=== PATIENT | female | born 1935 | race Caucasian/White ===

== ENCOUNTER 2016-05-08 11:32 | Observation (INO) | payer OTHER ==
[~2016-05-08] VITALS: Ht 149.9 cm; Wt 49.0 kg
[~2016-05-08 11:32] MED LIST: ASPCH81X PO; CHOL2000 PO; CYAN100020 PO; CYCL0.05 OPR; INSU1INJ SC; METO25TA3 PO; OMEP20CA59 PO; POLYDRO OPB; PRVC10 PO
[2016-05-08] MEDS ORDERED: SODIUM CHLORIDE 0.9% 500ML 500 ML IV STA (12:10)
[2016-05-08 12:19] LABS: HEMATOCRIT 41.3 % (37-47); MEAN CELL VOLUME 88.4 fL (80-100); MEAN CORPUSCULAR HEMOGLOBIN 28.5 pg (25-34); MEAN CORPUSCULAR HGB CONC 32.2 g/dl (32-36); MEAN PLATELET VOLUME 10.9 fL (7.4-10.4); PLATELET COUNT 160 K/uL (130-400); RED BLOOD COUNT 4.67 M/uL (4.2-5.4); WHITE BLOOD COUNT 12.74 K/uL (4.8-10.8)
[2016-05-08 12:28] LABS: ALT/SGPT 13 U/L (12-78); AST/SGOT 29 U/L (15-37); BLOOD UREA NITROGEN 30 mg/dl (7-18); BUN/CREATININE RATIO 18.5 (10-20); CALCIUM 9.1 mg/dl (8.5-10.1); CARBON DIOXIDE 25 mmol/L (21-32); CHLORIDE 100 mmol/L (98-107); GLUCOSE 204 mg/dl (70-99); POTASSIUM 4.1 mmol/L (3.5-5.1); SODIUM 135 mmol/L (136-145)
[2016-05-08 12:35] LABS: BASO % 0.1 %; BASO ABS # 0.01 K/uL (0-0.2); COMPLETE YES; IG% 0.3 %; LYMPH % 8.4 %; LYMPH ABS # 1.07 K/uL (1.2-3.4); MONO % 2.7 %; NEUT % 88.5 %
[2016-05-08 12:39] LABS: ALKALINE PHOSPHATASE 42 U/L (45-117); CKMB/CK RATIO 0.5 (0-3.0); PHOSPHORUS 2.8 mg/dl (2.5-4.9)
[2016-05-08] MEDS ORDERED: ASPIRIN 324 MG CHEW PO STA (13:05)
[2016-05-08] MEDS ORDERED: OSELTAMIVIR PHOSPHATE 75 MG CAP PO STA (13:05)
--- NOTE | 2016-05-08 13:06 | DIAGNOSTIC IMAGING REPORT ---
SINGLE VIEW CHEST CLINICAL HISTORY: Generalized weakness. FINDINGS: An AP, portable, upright chest radiograph is compared to study dated 05/04/2016. The examination is degraded by portable technique and patient rotation. The patient is status post midline sternotomy and aortic valve replacement. A 2-lead cardiac pacemaker is unchanged in position and partially obscures the left upper chest. The heart is top normal for projection. The pulmonary vasculature is noncongested. The mitral annulus is densely calcified. Emphysema and chronic interstitial thickening are similar to previous. No airspace consolidation or pleural effusion is seen. There is no pneumothorax. The skeletal structures are osteopenic. The bony thorax is grossly intact. IMPRESSION: 1. Cardiomegaly and cardiac pacemaker. There is no radiographic evidence of congestive failure. 2. Chronic parenchymal changes as above. No airspace consolidation or pleural effusion is seen Electronically signed by: Keven Fritz M.D. 05/08/2016 1:04 PM
[2016-05-08 13:12] LABS: INR 1.1 (0.9-1.1); PARTIAL THROMBOPLASTIN RATIO 1.2; PROTHROMBIN TIME (PATIENT) 11.9 SECONDS (9.0-12.0)
--- NOTE | 2016-05-08 13:28 | EMERGENCY ROOM VISIT NOTE ---
History Report prepared by Gricelda: Hugo Ortez Under the Supervision of: Dr. Jake Hare M.D. First contact with patient: 12:05 Chief Complaint: FLU LIKE SX Stated Complaint: WEAK, FLUE LIKE SYMPTONS ETC History of Present Illness The patient is a 81 year old female who presents to the Emergency Room with complaints of a persistent cough beginning this week. She has associated sore throat and weakness. She was seen at the clinic in [facility] for similar symptoms and was discharged. The patient notes that she has chest pain with coughing. She denies any neck pain, back pain, abdominal pain, nausea, vomiting , or diarrhea. She notes that many members of her family are sick with similar symptoms. Source of History: patient Onset: This week Quality: other (cough) Timing: other (persistent) Associated Symptoms: + chest pain (with coughing), + sorethroat, + weakness , No abdominal pain, No back pain, No diarrhea, No nausea, No neck pain, No vomiting Review of Systems See HPI for pertinent positives & negatives. A total of 10 systems reviewed and were otherwise negative. Past Medical & Surgical Medical Problems: (1) Diabetes (2) Hyperlipidemia (3) Pacemaker Family History No pertinent family history stated. Social History Smoking Status: Never Smoker Marital Status: Occupation Status: retired Current/Historical Medications Scheduled Aspirin (Aspirin Chewable), 81 MG PO QAM Cholecalciferol (Vitamin D3), 1 CAP PO QAM Cyanocobalamin (Vitamin B12), 1 TAB PO QAM Cyclosporine Oph 0.05% (Restasis Oph 0.05%), 1 DROP OPR BID Insulin Isophan/Regular (Humulin 70/30), 5-10 UNITS SC QAM Metoprolol Succinate (Toprol Xl), 25 MG PO QAM Omeprazole (Prilosec), 20 MG PO BID Polyvinyl Alcohol-Povidone (Op (Freshkote), 1 DROPS OPB QID Pravastatin Sod (Pravastatin Sodium), 1 TAB PO QAM Allergies Coded Allergies: Rosuvastatin (Verified Adverse Reaction, Unknown, UPSET STOMACH, 05/08/16) Simvastatin (Verified Adverse Reaction, Unknown, UPSET STOMACH, 05/08/16) Physical Exam Vital Signs Date Time Temp Pulse Resp B/P Pulse Ox O2 Delivery O2 Flow Rate FiO2 05/08/16 13:46 97 Room Air 05/08/16 13:00 75 20 142/53 92 Room Air 05/08/16 11:34 36.4 96 22 116/76 97 Room Air Physical Exam GENERAL: Patient is elderly appearing, and in minimal distress. Appears dehydrated. HEENT: No acute trauma, normocephalic atraumatic, mucous membranes moist, no nasal congestion, no scleral icterus. NECK: No stridor, no adenopathy, no meningismus, trachea is midline. LUNGS: No dyspnea. Clear to auscultation and equal bilaterally. No wheeze, no rhonchi. Junky cough noted. HEART: Regular rate and rhythm. No murmurs, rubs, gallops appreciated. ABDOMEN: Soft, nontender, bowel sounds positive, no masses appreciated, no peritonitis. BACK: No midline tenderness, no CVA tenderness EXTREMITIES: Normal motion all extremities, no cyanosis, no edema. NEUROLOGIC: Alert and oriented, no acute motor or sensory deficits, no focal weakness, cranial nerves grossly intact. SKIN: No rash, no jaundice, no diaphoresis. Medical Decision & Procedures ER Provider Diagnostic Interpretation: X ray results are stated below per my interpretation and the radiologist's interpretation. SINGLE VIEW CHEST FINDINGS: An AP, portable, upright chest radiograph is compared to study dated 05/04/2016. The examination is degraded by portable technique and patient rotation. The patient is status post midline sternotomy and aortic valve replacement. A 2-lead cardiac pacemaker is unchanged in position and partially obscures the left upper chest. The heart is top normal for projection. The pulmonary vasculature is noncongested. The mitral annulus is densely calcified. Emphysema and chronic interstitial thickening are similar to previous. No airspace consolidation or pleural effusion is seen. There is no pneumothorax. The skeletal structures are osteopenic. The bony thorax is grossly intact. IMPRESSION: 1. Cardiomegaly and cardiac pacemaker. There is no radiographic evidence of congestive failure. 2. Chronic parenchymal changes as above. No airspace consolidation or pleural effusion is seen Electronically signed by: Keven Fritz M.D. 05/08/2016 1:04 PM Laboratory Results 05/08/16 11:55 Red Blood Count 4.67, Mean Corpuscular Volume 88.4, Mean Corpuscular Hemoglobin 28.5, Mean Corpuscular Hemoglobin Concent 32.2, Mean Platelet Volume 10.9, Neutrophils (%) (Auto) 88.5, Lymphocytes (%) (Auto) 8.4, Monocytes (%) (Auto) 2.7, Eosinophils (%) (Auto) 0.0, Basophils (%) (Auto) 0.1, Neutrophils # (Auto) 11.28, Lymphocytes # (Auto) 1.07, Monocytes # (Auto) 0.34, Eosinophils # (Auto) 0.00, Basophils # (Auto) 0.01 05/08/16 11:55 Test 05/08/16 11:45 05/08/16 11:55 Influenza Type A Antigen POS for Influ A (NEG) Influenza Type B Antigen Neg for Influ B (NEG) White Blood Count 12.74 K/uL (4.8-10.8) Red Blood Count 4.67 M/uL (4.2-5.4) Hemoglobin 13.3 g/dL (12.0-16.0) Hematocrit 41.3 % (37-47) Mean Corpuscular Volume 88.4 fL (80-100) Mean Corpuscular Hemoglobin 28.5 pg (25-34) Mean Corpuscular Hemoglobin Concent 32.2 g/dl (32-36) Platelet Count 160 K/uL (130-400) Mean Platelet Volume 10.9 fL (7.4-10.4) Neutrophils (%) (Auto) 88.5 % Lymphocytes (%) (Auto) 8.4 % Monocytes (%) (Auto) 2.7 % Eosinophils (%) (Auto) 0.0 % Basophils (%) (Auto) 0.1 % Neutrophils # (Auto) 11.28 K/uL (1.4-6.5) Lymphocytes # (Auto) 1.07 K/uL (1.2-3.4) Monocytes # (Auto) 0.34 K/uL (0.11-0.59) Eosinophils # (Auto) 0.00 K/uL (0-0.5) Basophils # (Auto) 0.01 K/uL (0-0.2) RDW Standard Deviation 53.6 fL (36.4-46.3) RDW Coefficient of Variation 16.5 % (11.5-14.5) Immature Granulocyte % (Auto) 0.3 % Immature Granulocyte # (Auto) 0.04 K/uL (0.00-0.02) Prothrombin Time 11.9 SECONDS (9.0-12.0) Prothromb Time International Ratio 1.1 (0.9-1.1) Activated Partial Thromboplast Time 32.4 SECONDS (21.0-31.0) Partial Thromboplastin Ratio 1.2 Anion Gap 10.0 mmol/L (3-11) Estimated GFR () 34.2 Estimated GFR (Non- 29.5 BUN/Creatinine Ratio 18.5 (10-20) Calcium Level 9.1 mg/dl (8.5-10.1) Phosphorus Level 2.8 mg/dl (2.5-4.9) Magnesium Level 2.0 mg/dl (1.8-2.4) Total Bilirubin 0.5 mg/dl (0.2-1) Direct Bilirubin 0.1 mg/dl (0-0.2) Aspartate Amino Transf (AST/SGOT) 29 U/L (15-37) Alanine Aminotransferase (ALT/SGPT) 13 U/L (12-78) Alkaline Phosphatase 42 U/L (45-117) Total Creatine Kinase 382 U/L (26-192) Creatine Kinase MB 2.1 ng/ml (0.5-3.6) Creatine Kinase MB Ratio 0.5 (0-3.0) Pro-B-Type Natriuretic Peptide 5721 pg/ml (0-1800) Total Protein 8.1 gm/dl (6.4-8.2) Albumin 3.1 gm/dl (3.4-5.0) Lipase 76 U/L (73-393) Laboratory results as reviewed by me. Medications Administered Medications (Trade) Dose Ordered Sig/Minh Route Start Time Stop Time Status Last Admin Dose Admin Sodium Chloride (Nss 500ml) 500 ml @ 999 mls/hr Q31M STAT IV 05/08/16 12:10 05/08/16 12:40 DC 05/08/16 12:42 999 MLS/HR Oseltamivir Phosphate (Tamiflu Cap) 75 mg BID STAT PO 05/08/16 13:05 05/08/16 13:06 DC 05/08/16 13:46 75 MG Aspirin (Aspirin Chew) 324 mg NOW STAT PO 05/08/16 13:05 05/08/16 13:06 DC 05/08/16 13:46 324 MG ECG Indication: chest pain (with coughing) Rate (beats per minute): 83 Rhythm: other (atrial paced rhythm) Findings: PAC, no acute ischemic change, other (Bifasicular block) ED Course 1206: The patient was evaluated in room C1. A complete history and physical exam was performed. 1210: Ordered NSS 500 mL @ 999 mL/hr IV. 1249: I checked in on the patient. She is resting comfortably. 1305: Ordered Aspirin 324 mg PO, Tamiflu Cap 75 mg PO. 1318: Upon reevaluation, the patient is resting comfortably. Discussed results and treatment plan with the patient. She verbalized understanding and agreement with the treatment plan. The patient will be evaluated for further management. Medical Decision Differential: Viral, Pharyngitis, Cellulitis, Pneumonia, Influenza, Meningitis, Sepsis, Bacteremia, UTI/Pyelonephritis, Endocrine, Toxicologic, amongst other pathologies entertained. 81 yr old female with fevers, cough, fatigue and generalized weakness. Admits chest pain periodically with coughing though no constant chest pain. EKG without ischemia. Trop is positive though suspect this is more infectious in etiology though will with give dose aspirin for ACS protection. She does have positive flu consistent with her symptoms. No clear pneumonia on CXR. Stable and breathing comfortably. With findings will need to come in which family and patient agree with. Consults Time Called: 1312 Consulting Physician: Dr. [place] [place]ed Call: [phone] Discussed the patient's case. The patient will be evaluated for further treatment and disposition. Impression Primary Impression: Influenza Additional Impressions: Generalized weakness, Elevated troponin, Intermittent chest pain Scribe Attestation The scribe's documentation has been prepared under my direction and personally reviewed by me in its entirety. I confirm that the note above accurately reflects all work, treatment, procedures, and medical decision making performed by me. Departure Information Dispostion Being Evaluated By Hospitalist Referrals Agapito Lynne M.D. (PCP) Patient Instructions A Signature Page, My [facility]
[2016-05-08 13:46] VITALS: O2SAT 97; Ht 149.9 cm; Wt 49.0 kg
[2016-05-08] MEDS ORDERED: IV FLUIDS COMPLETED PRN (14:30)
[2016-05-08 14:50] VITALS: BP 85/54; PULSE 68; TEMP 36.4; O2SAT 93
[2016-05-08] MEDS ORDERED: GLUCAGON FOR INJ 1 MG VIAL SQ PRN (15:30)
[2016-05-08] MEDS ORDERED: DEXTROSE 50% 50 ML SYR IV PRN (15:30)
[2016-05-08] MEDS ORDERED: GLUCOSE 40% GEL 15 GM TUBE PO PRN (15:30)
[2016-05-08] MEDS ORDERED: GLUCOSE 10 TABS/TUBE PO PRN (15:30)
--- NOTE | 2016-05-08 15:33 | HISTORY & PHYSICAL EXAMINATION ---
DATE OF ADMISSION: 05/08/2016 CHIEF COMPLAINT: Chest pain with coughing, weakness, flu-like symptoms. HISTORY OF PRESENT ILLNESS: This 81-year-old female patient presented to the Emergency Department with a 2-day history of cough with associated sore throat and generalized weakness. She was seen in an outpatient clinic and was discharged to home. She has noted many family members that were sick with similar symptoms. She declines having any neck pain, back pain, abdominal pain, nausea, vomiting or diarrhea. The chest pain that she described is only noted with coughing and she feels that it is due to just sore muscles. There is no radiation of the pain into her left arm or up to her neck. No associated diaphoresis. 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 PAST SURGICAL HISTORY: Her past surgeries include CABG 4-vessel, bioprosthetic aortic valve replacement, cholecystectomy and pacemaker. FAMILY HISTORY: No reported significant past family history. SOCIAL HISTORY: The patient is retired, and resides independently. She never smoked, does not use alcohol or illicit substances. CURRENT HOME MEDICATIONS: Include aspirin 81 mg daily, vitamin D3 one capsule in the morning, vitamin B12 one capsule daily, Restasis eyedrops 0.05% one drop b.i.d., Humulin N insulin 70/30. She uses anywhere between 5-10 units subQ in the morning depending on what her sugar level is. Toprol-XL 25 mg daily, omeprazole 20 mg twice daily, FreshKote 1 drop q.i.d. and pravastatin 1 tab in the morning. ALLERGIES: SHE LISTS ALLERGIES TO SIMVASTATIN AND ROSUVASTATIN, BOTH CAUSING AN UPSET STOMACH. REVIEW OF SYSTEMS: A complete 10-system review is performed, all of which are negative. I placed the positives in the HPI. PHYSICAL EXAMINATION: VITAL SIGNS: Temperature is 36.4, pulse 96, respirations 22, blood pressure 116/76, pulse ox 97% on room air. GENERAL: The patient is awake, alert and oriented x3 and she does not appear in acute distress. Mucous membranes are dry. NECK: No JVD or lymphadenopathy. LUNGS: Clear to auscultation bilaterally. No rales or wheezes. I do hear rhonchi bilaterally. HEART: Regular. Normal S1, S2 with a 2/6 systolic murmur. ABDOMEN: Soft, nontender, nondistended. Positive bowel sounds. EXTREMITIES: No clubbing, cyanosis or edema. NEUROLOGIC: Cranial nerves II-XII are grossly intact and nonfocal. SKIN: Shows no rash, no jaundice. PSYCHIATRIC: The patient is pleasant and cooperative. IMAGING: Chest x-ray impression showed: 1. Cardiomegaly and cardiac pacemaker, no radiographic evidence of congestive failure. 2. Chronic parenchymal changes as above. No airspace consolidation or pleural effusion is seen. LABORATORY DATA: Sodium 135, potassium 4.1, chloride 100, CO2 25, BUN 30, creatinine 1.6, glucose 204. Magnesium 2.0, AST of 29, ALT of 13. CPK of 382. Troponin of 0.107. Lipase of 76. INR of 1.1. She was positive for influenza A, negative for B. White count 12.74, hemoglobin 13.3, hematocrit 41.3, platelet count of 160,000. ASSESSMENT: So the patient is assessed as: 1. Influenza A positive. 2. Chest pain, suspect musculoskeletal. However, she does have a mildly elevated troponin which could be due to demand ischemia and/or chronic kidney disease. We will follow her troponins and ask cardiology to evaluate the patient. 3. Type 2 diabetes mellitus, insulin requiring. 4. Coronary artery disease. 5. Generalized weakness secondary to influenza. PLAN: The patient will be brought in for 23-hour observation. Serial troponins, cardiology consult. She is already given a dose of Tamiflu in the Emergency Department and I ordered 75 mg b.i.d. to continue usually for 5 days. She is given gentle IV fluids. We will follow her CBC, BMP and CPK level. I will ask physical and occupational therapy to evaluate the patient, given her generalized weakness. Her oxygenation will be monitored with pulse ox. Currently, she is not requiring any supplemental oxygen. DVT prophylaxis in the form of subQ heparin, TEDs and SCDs.
[2016-05-08] MEDS ORDERED: HYDROCODONE/ACETAMOPHEN 5/325MG TAB PO PRN (15:45)
[2016-05-08] MEDS ORDERED: ACETAMINOPHEN 325 MG TAB PO PRN (15:45)
[2016-05-08] MEDS ORDERED: MoRPHine SULFATE 2 MG/ML CARP IV PRN (15:45)
[2016-05-08] MEDS ORDERED: ONDANSETRON INJ 2 MG/ML 2 ML VIAL IV PRN (15:45)
[2016-05-08 16:00] VITALS: O2SAT 92
[2016-05-08] MEDS ORDERED: OSELTAMIVIR PHOSPHATE SUSP 30 MG/5 ML UDP PO SCH (16:00)
[2016-05-08] MEDS: RESTASIS: ORDER AWAITING ACTION SCH (16:00)
[2016-05-08] MEDS: SODIUM CHLORIDE 0.9% 1000ML 1,000 ML IV SCH (17:04)
[2016-05-08] MEDS: HEPARIN SOD 5000 UNIT/0.5 ML CARP SQ SCH ×2 (17:07→21:36)
[2016-05-08] MEDS: ARTIFICIAL TEARS OP SOLN OPB SCH ×4 (17:08→19:25)
[2016-05-08] MEDS: INSULIN ASPART 100 UNITS/ML 3 ML PEN SC SCH ×2 (17:19→21:29)
[2016-05-08] MEDS: PANTOprazole SOD 40 MG TAB PO SCH (19:25)
[2016-05-08 20:00] VITALS: O2SAT 95
[2016-05-08 23:13] VITALS: BP 94/54; PULSE 58; TEMP 36.3; O2SAT 94
[2016-05-09 00:01] VITALS: O2SAT 95
[2016-05-09] MEDS: SODIUM CHLORIDE 0.9% 1000ML 1,000 ML IV SCH ×2 (00:32→10:01)
[2016-05-09] MEDS: HEPARIN SOD 5000 UNIT/0.5 ML CARP SQ SCH ×3 (05:54→21:12)
[2016-05-09 06:25] LABS: URINE APPEARANCE CLOUDY (CLEAR); URINE COLOR DK YELLOW; URINE EPITHELIAL CELL AUTO >30 /lpf (0-5); URINE NITRITE NEG (NEG); URINE SPECIFIC GRAVITY 1.024 (1.000-1.030); UROBILINOGEN NEG (NEG); ZZUR CULT IF INDIC CLEAN CATCH YES
[2016-05-09] MEDS: INSULIN ASPART 100 UNITS/ML 3 ML PEN SC SCH ×4 (06:30→21:11)
[2016-05-09 06:45] LABS: MANUAL MICROSCOPIC REQUIRED? NO; REVIEW REQ? YES
[2016-05-09 06:46] LABS: URINE BILIRUBIN NEG (NEG)
[2016-05-09 06:53] LABS: URINE MUCUS PRESENT (NONE PRSENT)
[2016-05-09 07:03] VITALS: BP 134/62; PULSE 69; TEMP 37.8; O2SAT 93
[2016-05-09] MEDS: RESTASIS: ORDER AWAITING ACTION SCH ×3 (08:00→16:00)
[2016-05-09 08:04] LABS: HEMATOCRIT 32.2 % (37-47); MEAN CELL VOLUME 89.4 fL (80-100); MEAN CORPUSCULAR HEMOGLOBIN 29.2 pg (25-34); MEAN CORPUSCULAR HGB CONC 32.6 g/dl (32-36); MEAN PLATELET VOLUME 10.9 fL (7.4-10.4); PLATELET COUNT 124 K/uL (130-400); WHITE BLOOD COUNT 7.94 K/uL (4.8-10.8)
[2016-05-09 08:20] VITALS: O2SAT 93
[2016-05-09] MEDS: ARTIFICIAL TEARS OP SOLN OPB SCH ×8 (08:20→20:00)
[2016-05-09] MEDS: PRAVASTATIN SOD 10 MG TAB PO SCH (08:21)
[2016-05-09] MEDS: METOPROLOL SUCC 25MG EXT REL TAB PO SCH (08:21)
[2016-05-09] MEDS: ASPIRIN 81 MG ECTAB PO SCH (08:21)
[2016-05-09] MEDS: PANTOprazole SOD 40 MG TAB PO SCH ×2 (08:21→21:01)
[2016-05-09 08:29] LABS: BUN/CREATININE RATIO 31.8 (10-20); CALCIUM 8.3 mg/dl (8.5-10.1); CREATININE 0.97 mg/dl (0.60-1.20); POTASSIUM 3.7 mmol/L (3.5-5.1)
[2016-05-09 08:36] LABS: BASO % 0.1 %; BASO ABS # 0.01 K/uL (0-0.2); COMPLETE YES; ECHINOCYTES 1+; IG% 0.1 %; LYMPH % 8.9 %; LYMPH ABS # 0.71 K/uL (1.2-3.4); MONO % 3.3 %; NEUT % 87.6 %
[2016-05-09 09:57] VITALS: TEMP 37.6
--- NOTE | 2016-05-09 10:25 | Hospitalist Progress Note ---
Hospitalist Progress Note Date of Service May 09, 2016. Subjective Pt evaluation today including: conversation w/ patient, physical exam, chart review, lab review, review of studies, review of inpatient medication list Patient resting comfortably. Still appears weak. White count is in normal range. creat went from 1.6 to 0.9. I feel I can stop IVF. Additional Comments: A 10 system review was performed and all were negative. Positives were placed in the subjective section. Objective Vital Signs Date Time Temp Pulse Resp B/P Pulse Ox O2 Delivery O2 Flow Rate FiO2 05/09/16 09:57 37.6 05/09/16 08:20 93 Room Air 05/09/16 08:20 Room Air 05/09/16 07:03 37.8 69 18 134/62 93 Room Air 05/09/16 00:01 Room Air 05/09/16 00:01 95 Room Air 05/08/16 23:13 36.3 58 18 94/54 94 05/08/16 20:00 95 Room Air 05/08/16 20:00 Room Air 05/08/16 16:00 Room Air 05/08/16 16:00 92 Room Air 05/08/16 14:58 75 18 95/45 92 05/08/16 14:50 36.4 68 20 85/54 93 Room Air 05/08/16 14:10 66 18 129/63 90 Room Air 05/08/16 13:54 62 05/08/16 13:46 97 Room Air 05/08/16 13:00 75 20 142/53 92 Room Air 05/08/16 11:34 36.4 96 22 116/76 97 Room Air Physical Exam Notes: GENERAL: The patient is awake, alert. appears fatigued. NECK: No JVD or lymphadenopathy. LUNGS: Clear to auscultation bilaterally. No rales or wheezes. less rhonchi bilaterally noted today. HEART: Regular. Normal S1, S2 with a 2/6 systolic murmur. ABDOMEN: Soft, nontender, nondistended. Positive bowel sounds. EXTREMITIES: No clubbing, cyanosis or edema. NEUROLOGIC: Cranial nerves II-XII are grossly intact and nonfocal. SKIN: Shows no rash, no jaundice. PSYCHIATRIC: The patient is pleasant and cooperative Laboratory Results Last 24 Hours Test 05/08/16 11:45 05/08/16 11:55 05/08/16 14:05 05/08/16 16:54 Influenza Type A Antigen POS for Influ A Influenza Type B Antigen Neg for Influ B White Blood Count 12.74 K/uL Red Blood Count 4.67 M/uL Hemoglobin 13.3 g/dL Hematocrit 41.3 % Mean Corpuscular Volume 88.4 fL Mean Corpuscular Hemoglobin 28.5 pg Mean Corpuscular Hemoglobin Concent 32.2 g/dl Platelet Count 160 K/uL Mean Platelet Volume 10.9 fL Neutrophils (%) (Auto) 88.5 % Lymphocytes (%) (Auto) 8.4 % Monocytes (%) (Auto) 2.7 % Eosinophils (%) (Auto) 0.0 % Basophils (%) (Auto) 0.1 % Neutrophils # (Auto) 11.28 K/uL Lymphocytes # (Auto) 1.07 K/uL Monocytes # (Auto) 0.34 K/uL Eosinophils # (Auto) 0.00 K/uL Basophils # (Auto) 0.01 K/uL RDW Standard Deviation 53.6 fL RDW Coefficient of Variation 16.5 % Immature Granulocyte % (Auto) 0.3 % Immature Granulocyte # (Auto) 0.04 K/uL Prothrombin Time 11.9 SECONDS Prothromb Time International Ratio 1.1 Activated Partial Thromboplast Time 32.4 SECONDS Partial Thromboplastin Ratio 1.2 Sodium Level 135 mmol/L Potassium Level 4.1 mmol/L Chloride Level 100 mmol/L Carbon Dioxide Level 25 mmol/L Anion Gap 10.0 mmol/L Blood Urea Nitrogen 30 mg/dl Creatinine 1.60 mg/dl Estimated GFR () 34.2 Estimated GFR (Non- 29.5 BUN/Creatinine Ratio 18.5 Random Glucose 204 mg/dl Calcium Level 9.1 mg/dl Phosphorus Level 2.8 mg/dl Magnesium Level 2.0 mg/dl Total Bilirubin 0.5 mg/dl Direct Bilirubin 0.1 mg/dl Aspartate Amino Transf (AST/SGOT) 29 U/L Alanine Aminotransferase (ALT/SGPT) 13 U/L Alkaline Phosphatase 42 U/L Total Creatine Kinase 382 U/L Creatine Kinase MB 2.1 ng/ml Creatine Kinase MB Ratio 0.5 Troponin I 0.107 ng/ml Pro-B-Type Natriuretic Peptide 5721 pg/ml Total Protein 8.1 gm/dl Albumin 3.1 gm/dl Lipase 76 U/L Bedside Lactic Acid Venous 1.84 mmol/L Bedside Glucose 172 mg/dl Test 05/08/16 18:26 05/08/16 20:13 05/08/16 23:44 05/09/16 00:00 Troponin I 0.097 ng/ml 0.089 ng/ml Bedside Glucose 141 mg/dl Urine Color DK YELLOW Urine Appearance CLOUDY Urine pH 5.0 Urine Specific [place] 1.024 Urine Protein 1+ Urine Glucose (UA) NEG Urine Ketones 1+ Urine Occult Blood NEG Urine Nitrite NEG Urine Bilirubin NEG Urine Urobilinogen NEG Urine Leukocyte Esterase SMALL Urine WBC (Auto) 10-30 /hpf Urine RBC (Auto) 0-4 /hpf Urine Hyaline Casts (Auto) 5-10 /lpf Urine Epithelial Cells (Auto) >30 /lpf Urine Bacteria (Auto) 1+ Urine Renal Epithelial Cells /lpf Urine Pathogenic Casts /lpf Urine Mucus PRESENT Urine Yeast (Auto) Test 05/09/16 07:00 05/09/16 07:26 White Blood Count 7.94 K/uL Red Blood Count 3.60 M/uL Hemoglobin 10.5 g/dL Hematocrit 32.2 % Mean Corpuscular Volume 89.4 fL Mean Corpuscular Hemoglobin 29.2 pg Mean Corpuscular Hemoglobin Concent 32.6 g/dl Platelet Count 124 K/uL Mean Platelet Volume 10.9 fL Neutrophils (%) (Auto) 87.6 % Lymphocytes (%) (Auto) 8.9 % Monocytes (%) (Auto) 3.3 % Eosinophils (%) (Auto) 0.0 % Basophils (%) (Auto) 0.1 % Neutrophils # (Auto) 6.95 K/uL Lymphocytes # (Auto) 0.71 K/uL Monocytes # (Auto) 0.26 K/uL Eosinophils # (Auto) 0.00 K/uL Basophils # (Auto) 0.01 K/uL RDW Standard Deviation 54.8 fL RDW Coefficient of Variation 16.6 % Immature Granulocyte % (Auto) 0.1 % Immature Granulocyte # (Auto) 0.01 K/uL Echinocytes 1+ Sodium Level 140 mmol/L Potassium Level 3.7 mmol/L Chloride Level 107 mmol/L Carbon Dioxide Level 21 mmol/L Anion Gap 12.0 mmol/L Blood Urea Nitrogen 31 mg/dl Creatinine 0.97 mg/dl Est Creatinine Clear Calc Drug Dose 30.0 ml/min Estimated GFR () 62.6 Estimated GFR (Non- 54.0 BUN/Creatinine Ratio 31.8 Random Glucose 111 mg/dl Calcium Level 8.3 mg/dl Total Creatine Kinase 255 U/L Bedside Glucose 107 mg/dl Assessment and Plan 1. Influenza A positive - supportive therapies. Tamiflu adjusted for renal function. 2. Chest pain, suspect musculoskeletal. However, she does have a mildly elevated troponin which could be due to demand ischemia and/or chronic kidney disease. Cardiology consulted. 3. Type 2 diabetes mellitus, insulin requiring.- stable sugars fairly well controlled. 4. Coronary artery disease. 5. Generalized weakness secondary to influenza/deconditioning. - PT/OT. 6. Pre-renal azotemia/ acute kidney injury - resolved. creat from 1.6 to 0.9 - D /C IVF. DVT prophylaxis in the form of subQ heparin, TEDs and SCDs.
[2016-05-09] MEDS: OSELTAMIVIR PHOSPHATE SUSP 30 MG/5 ML UDP PO SCH (13:35)
[2016-05-09 15:35] VITALS: BP 106/65; PULSE 65; TEMP 36.5; O2SAT 92
[2016-05-10] VITALS: BP 144/78; PULSE 64; TEMP 36.7; O2SAT 96
[2016-05-10] MEDS: HEPARIN SOD 5000 UNIT/0.5 ML CARP SQ SCH (05:48)
[2016-05-10 08:00] VITALS: O2SAT 96
[2016-05-10] MEDS: RESTASIS: ORDER AWAITING ACTION SCH ×2 (08:00)
[2016-05-10] MEDS: ARTIFICIAL TEARS OP SOLN OPB SCH ×4 (08:06→13:53)
[2016-05-10] MEDS: METOPROLOL SUCC 25MG EXT REL TAB PO SCH (08:06)
[2016-05-10] MEDS: PRAVASTATIN SOD 10 MG TAB PO SCH (08:06)
[2016-05-10] MEDS: ASPIRIN 81 MG ECTAB PO SCH (08:06)
[2016-05-10] MEDS: INSULIN ASPART 100 UNITS/ML 3 ML PEN SC SCH ×2 (08:12→13:47)
[2016-05-10] MEDS: PANTOprazole SOD 40 MG TAB PO SCH (08:13)
[2016-05-10 08:42] VITALS: BP 103/60; PULSE 64; TEMP 36.5; O2SAT 94
[2016-05-10] MEDS ORDERED: TAMIFLU 30 MG PO (10:13)
--- NOTE | 2016-05-10 10:32 | Discharge Instructions ---
Discharge Instructions Admission Reason for Admission: Generalized Weakness,Influenza Discharge Discharge Diagnosis / Problem: Influenza, acute kidney injury Discharge Goals Goal(s): Improve disease control, Therapeutic intervention Activity Recommendations Activity Limitations: as noted below Exercise/Sports Limitations: gradually increase as tolerated (with home PT) Shower/Bathe: no limitations Instructions / Follow-Up Instructions / Follow-Up You were admitted with Influenza and weakness with mild kidney failure that is now improved. You were given IV fluids and antibiotics for the flu. You need to finish out 3 more days of the Tamiflu antibiotic. You were evaluated by the physical therapist and recommended to have someone else with you for assistance 24 hrs/day until you are strong enough to be on your own again in your own house. A home nursing agency will be arranged to provide home physical therapy services. Please follow up with your Primary Care Doctor within 1 week. . Current Hospital Diet Patient's current hospital diet: AHA Diet (Heart Healthy), Diabetes Type 2 Diet Discharge Diet Recommended Diet: AHA Diet (Heart Healthy), Diabetes Type 2 Diet Procedures Procedures Performed: Chest xray Pending Studies Studies pending at discharge: no Laboratory Results Hemoglobin A1c Test 05/04/16 09:30 Range/Units Estimated Average Glucose 160 mg/dl Hemoglobin A1c 7.2 H 4.5-5.6 % Medical Emergencies . Who to Call and When: Medical Emergencies: If at any time you feel your situation is an emergency, please call 911 immediately. . Non-Emergent Contact Non-Emergency issues call your: Primary Care Provider Call Non-Emergent contact if: temperature is above 101, you have any medication questions if you are feeling very weak, confused, having shortness of breath, or for any other acute concerns. . . "Provider Documentation" section prepared by Cassandra Harding. VTE Core Measure Inpt VTE Proph given/why not?: Unfractionated heparin SQ
[2016-05-10 12:52] VITALS: BP 103/60; PULSE 64; TEMP 36.5; O2SAT 94
[2016-05-10] MEDS: OSELTAMIVIR PHOSPHATE SUSP 30 MG/5 ML UDP PO SCH (13:54)
--- NOTE | 2016-05-10 18:28 | Cardiology Consultation ---
Cardiology Consultation CARDIOLOGY CONSULTATION DATE OF CONSULTATION: May 10, 2016. REFERRING PHYSICIAN: Benson Ferro DO REASON FOR CONSULT: Troponin elevation/chest pain HISTORY OF PRESENT ILLNESS: 81-year-old woman status post bioprosthetic aortic valve and four-vessel CABG 2007, dual-chamber pacemaker placement for bradycardia (2013, [employer]) , moderate carotid stenosis, and Schatzki's ring requiring periodic dilatations who was admitted 05/08/2016 with chest pain, weakness, and flu-like symptoms. Of note, at her baseline she has had longstanding atypical chest pain ( previously related to meals). She was found to be influenza a positive and noted to have modest degree of acute renal insufficiency (creatinine 1.6) on admission. Troponin was mildly elevated at 0.1 and dropped slightly to 0.089 throughout the day of admission. CK was 382 with a negative MB fraction, the following day was 255. ProBNP was 5721. ECG showed electronic atrial pacing with left anterior fascicular block and right bundle-branch block, old septal infarct, but no acute ST-T changes. The chest discomfort she describes is atypical for myocardial ischemia, present immediately after coughing. No chest wall tenderness. No positional component. No relation to meals at this time. Her discomfort is mild and transient. MEDICATIONS (Outpatient): Aspirin 81 MG TABS; TAKE 1 TABLET DAILY Metoprolol Succinate ER 12.5 MG DAILY HumuLIN 70/30 (70-30) INJECT 5-10 UNITS DAILY IN THE MORNING INSTRUCTED; Omeprazole 20 MG Oral Capsule Delayed Release; TAKE 1 CAPSULE TWICE DAILY; Calcium 600/Vitamin D3 600-800 MG-UNIT Oral Tablet; Take one tablet three times a day; B-12 2000 MCG Oral Tablet; TAKE 1 TABLET DAILY; Cyanocobalamin 1000 MCG/ML Injection Solution; INJECT 1 ML INTRAMUSCULARLY ONCE A MONTH Vitamin D3 2000 UNIT Oral Capsule; Take one capsule daily; Ativan 0.5 MG Oral Tablet; Take one tablet twice a day as needed; ALLERGIES: 1. Crestor TABS 2. Zocor TABS PAST MEDICAL HISTORY: 1. Abnormal finding on GI tract imaging (R93.3) 2. Anemia (D64.9) 3. Aortic valve disorder (I35.9) 4. Arteriosclerotic coronary artery disease (I25.10) 5. Atypical chest pain (R07.89) 6. Cardiac pacemaker (Z95.0) 7. Carotid artery stenosis (I65.29) 8. Controlled diabetes mellitus type II without complication (E11.9) 9. Diabetes mellitus (E11.9) 10. Dyslipidemia (E78.5) 11. Dysphagia (R13.10) 12. Dysuria (R30.0) 13. Elevated serum globulin level (R77.1) 14. Esophageal candidiasis (B37.81) 15. Esophageal stricture (K22.2) 16. Fatigue (R53.83) 17. GERD (gastroesophageal reflux disease) (K21.9) 18. Glossitis (K14.0) 19. Hiatal hernia (K44.9) 20. Hypercalcemia (E83.52) 21. Hyperkalemia (E87.5) 22. Hyperparathyroidism (E21.3) 23. Lump of skin (R22.9) 24. 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 Neck pain (M54.2) 26. Neoplasm of uncertain behavior of skin (D48.5) 27. Orthostatic hypotension (I95.1) 28. Osteoporosis (M81.0) 29. Other specified disorders of bladder (N32.89) 30. S/P aortic valve replacement with bioprosthetic valve (Z95.4) 31. Sialoadenitis (K11.20) 32. Silent aspiration (T17.900A) 33. Uterine prolapse (N81.4) 34. Vitamin B12 deficiency (E53.8) 35. Vitamin D deficiency (E55.9) 36. Weight loss (R63.4) PAST SURGICAL HISTORY: SOCIAL HISTORY: Retired, , resides independently. Never smoked. No alcohol. FAMILY HISTORY: Father 1. Family history of Rectal Cancer Family History 2. Denied: Family history of Colon Cancer 3. Denied: Family history of Crohn's (Granulomatous) Colitis 4. Denied: Family history of Peptic Ulcer 5. Family history of Rectal Cancer 6. Denied: Family history of Ulcerative Colitis REVIEW OF SYSTEMS: As per HPI, TIA manifested as difficulty speaking. No residual. No change in her chronic mild dyspnea exertion. No orthopnea or PND. PHYSICAL EXAMINATION: No distress. Oxygen saturation 94 % on room air. Vitals: T-max 37.8 yesterday, afebrile today. BP 103/60, pulse 64 and regular, respirations 18 and nonlabored. Skin: No unusual lesions or ecchymosis. HEENT: Unremarkable. Neck: Jugular venous pulse at the clavicle at 90, bilateral transmitted murmur versus carotid bruits. Lungs: Moderately decreased breath sounds but clear. No wheezing or crackles. Cardiac: Regular rhythm with normal S1 and chief intact aortic closure sound. 3/6 basal systolic ejection murmur radiating upward, 3/6 apical holosystolic murmur. No diastolic murmur distinct gallop. Abdomen: Benign. Extremities: Nontender without edema. Intact peripheral pulses. Neurologic: Normal affect, nonfocal DATA: See HPI above. IMPRESSION: 1. Atypical chest pain, likely musculoskeletal. 2. Troponin elevation, likely secondary to acute renal insufficiency +/- supply/ demand mismatch from acute viral illness. 3. Influenza A. 4. Dual-chamber pacemaker, functioning appropriately. 5. History of coronary artery disease, status post CABG 2007. 6. Bioprosthetic aortic valve. 7. Acute renal insufficiency, resolved. 8. Multiple other medical problems as noted above. DISCUSSION: Patient with known coronary artery disease who should be at low risk for widespread ischemia since she is less than 10 years post bypass. Her chest pain is atypical for ischemia, her enzyme pattern is most likely secondary to acute renal insufficiency, although a component of supply/demand mismatch secondary to her acute viral illness cannot be excluded. Her pacemaker and bioprosthetic aortic valve seem to be functioning appropriately. She would be unlikely to benefit from revascularization in the absence of more characteristic/clear-cut evidence for myocardial ischemia, particularly since she is still within the "honeymoon period" for her CABG. Therefore, there is little utility to stress testing at this time. Her hemodynamics have been favorable, no need for medication adjustment. She would be appropriate for discharge without further cardiac testing, will follow up as outpatient within the next few weeks.
--- NOTE | 2016-05-11 22:39 | Discharge Summary ---
Discharge Summary Admission Date: May 08, 2016 at 13:50 Discharge Date: May 10, 2016 Discharge Disposition: Home with services Principal Diagnosis: Influenza A with respiratory tract infection, JOYCELYN Problems/Secondary Diagnoses: Chest pain, suspect musculoskeletal S/p AVR bioprosthetic Demand ischemia Type 2 diabetes mellitus, insulin requiring Coronary artery disease Generalized weakness secondary to influenza/deconditioning Pre-renal azotemia/ acute kidney injury Immunizations: Have You Had Influenza Vaccine: No History of Tetanus Vaccine?: Unknown History of Pneumococcal: No History of Hepatitis B Vaccine: Unknown Procedures: SINGLE VIEW CHEST CLINICAL HISTORY: Generalized weakness. FINDINGS: An AP, portable, upright chest radiograph is compared to study dated 05/04/2016. The examination is degraded by portable technique and patient rotation. The patient is status post midline sternotomy and aortic valve replacement. A 2-lead cardiac pacemaker is unchanged in position and partially obscures the left upper chest. The heart is top normal for projection. The pulmonary vasculature is noncongested. The mitral annulus is densely calcified. Emphysema and chronic interstitial thickening are similar to previous. No airspace consolidation or pleural effusion is seen. There is no pneumothorax. The skeletal structures are osteopenic. The bony thorax is grossly intact. IMPRESSION: 1. Cardiomegaly and cardiac pacemaker. There is no radiographic evidence of congestive failure. 2. Chronic parenchymal changes as above. No airspace consolidation or pleural effusion is seen Consultations: Cardiology Medication Reconciliation New Medications: [tamiflu 30mg] () 30 MG PO DAILY for 3 Days, #3 CAP Continued Medications: Aspirin (Aspirin Chewable) 81 Mg Chew 81 MG PO QAM Cholecalciferol (Vitamin D3) 2,000 Unit Cap 1 CAP PO QAM, CAP 3 Refills Cyanocobalamin (Vitamin B12) 1,000 Mcg Tab 1 TAB PO QAM Cyclosporine Oph 0.05% (Restasis Oph 0.05%) Emul 1 DROP OPR BID, BTL Insulin Isophan/Regular (Humulin 70/30) Susp 5-10 UNITS SC QAM, VIAL Metoprolol Succinate (Toprol Xl) 25 Mg Tabcr 25 MG PO QAM, #30 TAB Omeprazole (Prilosec) 20 Mg Capcr 20 MG PO BID, CAP Polyvinyl Alcohol-Povidone (Op ([place]kote) 1 Elaine Elaine 1 DROPS OPB QID, ML 3 Refills Pravastatin Sod (Pravastatin Sodium) 10 Mg Tab 1 TAB PO QAM Referrals At Discharge Follow up Referrals: Family Practice Referral - Within 1 Week with Agapito Lynne M.D. Discharge Exam Review of Systems: Constitutional: No fever Eyes: No problem reported ENT: No problem reported Respiratory: + cough (minimal), No shortness of breath Cardiovascular: No chest pain Abdomen: No diarrhea, No nausea, No pain, No vomiting Musculoskeletal: No problem reported Genitourinary - Female: No problem reported Neurologic: No problem reported Psychiatric: No problem reported Endocrine: No problem reported Hematologic / Lymphatic: No problem reported Integumentary: No problem reported Physical Exam: General Appearance: no apparent distress, + thin Eyes: normal inspection, sclerae normal ENT: hearing grossly normal Neck: trachea midline Respiratory/Chest: no respiratory distress, no accessory muscle use, + decreased breath sounds (diminished throughout but no rhonchi or rales, no wheezes) Cardiovascular: regular rate, rhythm, no edema, no gallop, normal peripheral pulses, + systolic murmur (2/6 at RUSB) Abdomen / GI: normal bowel sounds, non tender, soft, no organomegaly Extremities: no calf tenderness, normal capillary refill, no pedal edema, normal range of motion Neurologic/Psychiatric: no motor/sensory deficits, alert, normal mood/affect Skin: normal color, warm/dry, no rash Hospital Course This 81-year-old female patient presented to the Emergency Department with a 2- day history of cough with associated sore throat and generalized weakness. She was seen in an outpatient clinic and was discharged to home. She has noted many family members that were sick with similar symptoms. She declines having any neck pain, back pain, abdominal pain, nausea, vomiting or diarrhea. The chest pain that she described is only noted with coughing and she feels that it is due to just sore muscles. There is no radiation of the pain into her left arm or up to her neck. No associated diaphoresis. She is status post bioprosthetic aortic valve and four-vessel CABG 2007, dual- chamber pacemaker placement for bradycardia (2013, [employer]), moderate carotid stenosis, and Schatzki's ring requiring periodic dilatations who was admitted 05/08/2016 with chest pain, weakness, and flu-like symptoms. Of note, at her baseline she has had longstanding atypical chest pain (previously related to meals). She was found to be influenza A positive and noted to have modest degree of acute renal insufficiency (creatinine 1.6) on admission. Troponin was mildly elevated at 0.1 and dropped slightly to 0.089 throughout the day of admission. CK was 382 with a negative MB fraction, the following day was 255. ProBNP was 5721. ECG showed electronic atrial pacing with left anterior fascicular block and right bundle-branch block, old septal infarct, but no acute ST-T changes. The chest discomfort she describes is atypical for myocardial ischemia, present immediately after coughing. No chest wall tenderness. No positional component. No relation to meals at this time. Her discomfort is mild and transient. 1. Influenza A positive - supportive therapies. Tamiflu adjusted for renal function. 2. Chest pain, demand ischemia with mildly elevated but stable troponin--> suspect musculoskeletal. Cardiology consulted and agreed no further workup necessary. 3. Type 2 diabetes mellitus, insulin requiring.- stable sugars fairly well controlled. 4. Coronary artery disease. 5. Generalized weakness secondary to influenza/deconditioning. - PT/OT ordered for at home 6. Pre-renal azotemia/ acute kidney injury - resolved. creat from 1.6 to 0.9 - D /C IVF. DVT prophylaxis in the form of subQ heparin, TEDs and SCDs. Total Time Spent: Greater than 30 minutes This includes examination of the patient, discharge planning, medication reconciliation, and communication with other providers. Discharge Instructions Please refer to the electronic Patient Visit Report (Discharge Instructions) for additional information. Follow-Up With PCP within 1 week Additional Copies To Agapito Lynne M.D.
[2016-10-13] MEDS ORDERED: CALC500C70 PO (10:40)
[2017-01-24] MEDS ORDERED: ERGO500011 PO (10:48)
== END 2016-05-10 14:41 | disposition home health service (06) ==
LOC: ENRESERVTM → ENRESERVDT → C.EDB 11:33 → C.MS4W 13:50 → UNDOADMOB 13:50
PROVIDERS: ADMIT Hospitalist; ATTEND Family Medicine
DX: J11.1 Influenza due to unidentified influenza virus with other respiratory manifestations (principal); R07.9 Chest pain, unspecified; R78.89 Finding of other specified substances, not normally found in blood; N28.9 Disorder of kidney and ureter, unspecified; I25.10 Atherosclerotic heart disease of native coronary artery without angina pectoris; E11.9 Type 2 diabetes mellitus without complications; E78.5 Hyperlipidemia, unspecified; K21.9 Gastro-esophageal reflux disease without esophagitis; E53.8 Deficiency of other specified B group vitamins; E55.9 Vitamin D deficiency, unspecified; Z51.81 Encounter for therapeutic drug level monitoring; Z79.899 Other long term (current) drug therapy; Z79.82 Long term (current) use of aspirin; Z79.4 Long term (current) use of insulin; Z95.0 Presence of cardiac pacemaker; Z95.1 Presence of aortocoronary bypass graft; Z95.2 Presence of prosthetic heart valve

== ENCOUNTER → 2016-05-18 | Outpatient (CLI) | payer OTHER ==
[~2016-05-18] MED LIST changes: +AMOX1TAB43 PO; +AMOX875T PO; +ASPI325T60 PO; +CALC500C70 PO; +ERGO1CAP41 PO; +FLV400 PO; +RXC5 PO; +TAMIFLU 30 MG PO
--- NOTE | 2016-05-18 15:46 | DIAGNOSTIC IMAGING REPORT ---
CHEST 2 VIEWS ROUTINE CLINICAL HISTORY: COUGH COMPARISON STUDY: 05/08/2016 FINDINGS: There are postsurgical changes of midline sternotomy. There are postsurgical changes of aortic valve replacement. There is a left subclavian dual-chamber central venous pacemaker. The heart is normal in size. There is radiographic evidence of emphysema. There are bibasal airspace opacities, possibly representing a pneumonia given history of cough.[ There is a small right pleural effusion IMPRESSION: 1. Bibasal airspace opacities, possibly representing a pneumonia given the history of cough. Clinical and radiographic follow-up is recommended 2. Small right pleural effusion Electronically signed by: Salvatore Em M.D. 05/18/2016 3:44 PM Dictated Date/Time: 05/18/2016 3:42 PM
== END | disposition home or self-care (01) ==
LOC: C.RADPV 15:06
PROVIDERS: ATTEND Family Medicine
DX: R05 Cough (principal); R91.8 Other nonspecific abnormal finding of lung field; J90 Pleural effusion, not elsewhere classified

== ENCOUNTER → 2016-10-28 | Day surgery (SDC) | payer OTHER ==
[2016-10-13 10:40] VITALS: Ht 157.5 cm; Wt 59.1 kg
[~2016-10-28] VITALS: Ht 157.5 cm; Wt 59.1 kg
[~2016-10-28] MED LIST changes: -CYCL0.05 OPR; -ERGO1CAP41 PO; +ERGO500011 PO; +FENTANYL CITRATE INJ 50 MCG/1 ML 2 ML VIAL ONE; +LIDOCAINE HCL 2% 2 ML VIAL (20MG/ML) ONE; -POLYDRO OPB; +PROPOFOL IV EMULSION 10 MG/ML 20 ML VIAL IV ONE; +SODIUM CHLORIDE 0.9% 500ML 500 ML IV ONE; -TAMIFLU 30 MG PO
--- NOTE | 2016-10-28 08:43 | Endo History and Physical ---
History & Physical Date of Service: Oct 28, 2016. Chief Complaint: Dysphagia with dilation Referring Physician: Maged History of Present Illness 81 yo CF who presents for EGD secondary to dysphagia. Past Medical History Diabetes, Endocrine Disorder, Arthritis, Pacemaker, ASHD, Gastrointestinal Disorder, Reflux, Blood Dyscrasias, High Cholesterol, CABG, Hypertension, Thrombophlebitis, Thyroid Disease, Valve Replacement, Other Past Surgical History Hx Cardiac Surgery: Yes (CABG X 4, AORTIC VALVE REPLACEMENT/ PACEMAKER ) Hx Internal Defibrillator: No Hx Pacemaker: Yes Hx Abdominal Surgery: Yes (OPEN EDNA) Hx of Implantable Prosthesis: No Hx Post-Op Nausea and Vomiting: No Hx Cancer Surgery: No Hx Thoracic Surgery: No Hx Orthopedic: No Hx Urinary Tract Surgery: No Family History None Social History Smoking Status: Never Smoker Hx Substance Use: No Hx Alcohol Use: No Allergies Coded Allergies: Rosuvastatin (Verified Adverse Reaction, Unknown, UPSET STOMACH, 10/28/16) Simvastatin (Verified Adverse Reaction, Unknown, UPSET STOMACH, 10/28/16) Current Medications Reported Home Medications Medications Dose Route/Sig Max Daily Dose Days Date Category Os-Danilo 500 Plus D (Calcium/Vitamin D) Tab 1 Tab PO TID 10/13/16 Reported Vitamin B12 (Cyanocobalamin) 1,000 Mcg Tab 1 Tab PO QAM 03/23/16 Reported Toprol Xl (Metoprolol Succinate) 25 Mg Tabcr 25 Mg PO QAM 03/23/16 Reported Pravastatin Sodium (Pravastatin Sod) 10 Mg Tab 1 Tab PO QAM 03/23/16 Reported Vitamin D3 (Cholecalciferol) 2,000 Unit Cap 1 Cap PO QAM 06/17/15 Reported Humulin 70/30 (Insulin Human Isoph/Insulin Regular) Susp 5-10 Units SC QAM 06/17/15 Reported Aspirin Chewable (Aspirin) 81 Mg Chew 81 Mg PO QAM 06/17/15 Reported Prilosec (Omeprazole) 20 Mg Capcr 20 Mg PO BID 06/17/15 Reported Vital Signs Weight (Kilograms): 59.09 Height (Feet): 5 Height (Inches): 2 Date Time Temp Pulse Resp B/P (MAP) Pulse Ox O2 Delivery O2 Flow Rate FiO2 10/28/16 08:15 36.5 64 20 155/73 (100) 100 Room Air Physical Exam General Appearance: WD/WN, no apparent distress Respiratory/Chest: Auscultation: breath sounds normal Cardiovascular: Heart Auscultation: RRR Abdomen: Bowel Sounds: normal Inspection & Palpation: soft, non-distended, no tenderness, guarding & rebound Assessment and Plan Assessment: 81 yo CF who presents for EGD secondary to dysphagia. Plan: Proceed with EGD.
--- NOTE | 2016-10-28 09:07 | GI REPORT ---
Procedure Date: 10/28/2016 8:20 AM Procedure: Upper GI endoscopy Indications: Dysphagia Medicines: Monitored Anesthesia Care Complications: No immediate complications. Estimated Blood Loss: Estimated blood loss: none. Procedure: Pre-Anesthesia Assessment: - Prior to the procedure, a History and Physical was performed, and patient medications and allergies were reviewed. The patient's tolerance of previous anesthesia was also reviewed. The risks and benefits of the procedure and the sedation options and risks were discussed with the patient. All questions were answered, and informed consent was obtained. Prior Anticoagulants: The patient has taken aspirin, last dose was 1 day prior to procedure. ASA Grade Assessment: III - A patient with severe systemic disease. After reviewing the risks and benefits, the patient was deemed in satisfactory condition to undergo the procedure. After obtaining informed consent, the endoscope was passed under direct vision. Throughout the procedure, the patient's blood pressure, pulse, and oxygen saturations were monitored continuously. The scope was introduced through the mouth, and advanced to the second part of duodenum. The upper GI endoscopy was accomplished without difficulty. The patient tolerated the procedure well. Findings: Multiple 5 mm plaques were found in the upper third of the esophagus. Cells for cytology were obtained by brushing. A few moderate benign-appearing, intrinsic stenoses were found. The narrowest stenosis measured 1.2 cm (inner diameter) x 1 cm (in length) and were traversed. A TTS dilator was passed through the scope. Dilation with a 12-13.5-15 mm balloon (to a maximum balloon size of 15 mm) dilator was performed. The dilation site was examined and showed moderate improvement in luminal narrowing. The stomach was normal. The examined duodenum was normal. Impression: - Multiple plaques in the upper third of the esophagus. Cells for cytology obtained. - Benign-appearing esophageal stenoses. Dilated. - Normal stomach. - Normal examined duodenum. Recommendation: - Resume previous diet. - Continue present medications. - Await pathology results from esophageal brushings. - Repeat the upper endoscopy PRN for retreatment. - Return to primary care physician as previously scheduled. Cr Mims DO 10/28/2016 9:06:30 AM This report has been signed electronically. Note Initiated On: 10/28/2016 8:20 AM I attest to the content of the Intraoperative Record and orders documented therein, exceptions below
--- NOTE | 2016-10-28 09:13 | Discharge Instructions ---
Endoscopy Patient Instructions Date / Procedure(s) Performed Oct 28, 2016. EGD Allergy Information Coded Allergies: Rosuvastatin (Verified Adverse Reaction, Unknown, UPSET STOMACH, 10/28/16) Simvastatin (Verified Adverse Reaction, Unknown, UPSET STOMACH, 10/28/16) Discharge Date / Findings Oct 28, 2016. Esophageal stricture s/p dilation Esophageal brushings to rule out Tamar esophagitis Medication Instructions OK to resume all medications today as prescribed Medications Dose Route/Sig Max Daily Dose Days Date Category Os-Danilo 500 Plus D (Calcium/Vitamin D) Tab 1 Tab PO TID 10/13/16 Reported Vitamin B12 (Cyanocobalamin) 1,000 Mcg Tab 1 Tab PO QAM 03/23/16 Reported Toprol Xl (Metoprolol Succinate) 25 Mg Tabcr 25 Mg PO QAM 03/23/16 Reported Pravastatin Sodium (Pravastatin Sod) 10 Mg Tab 1 Tab PO QAM 03/23/16 Reported Vitamin D3 (Cholecalciferol) 2,000 Unit Cap 1 Cap PO QAM 06/17/15 Reported Humulin 70/30 (Insulin Human Isoph/Insulin Regular) Susp 5-10 Units SC QAM 06/17/15 Reported Aspirin Chewable (Aspirin) 81 Mg Chew 81 Mg PO QAM 06/17/15 Reported Prilosec (Omeprazole) 20 Mg Capcr 20 Mg PO BID 06/17/15 Reported Provider Instructions Activity Restrictions - No exercising or heavy lifting for 24 hours. - Do not drink alcohol the day of the procedure. - Do not drive a car or operate machinery until the day after the procedure. - Do not make any important decisions or sign important papers in 24 hours after the procedure. Following Day: - Return to full activity which may include returning to work/school. Diet Start your diet with liquids and light foods (jello, soup, juice, toast). Then eat your usual diet if not nauseated. Treatment For Common After Affects For mild abdominal pain, bloating, or excessive gas: - Rest - Eat lightly - Lie on right side Follow-Up Information Follow-up with Maged as scheduled Anesthesia Information What You Should Know You have had a procedure that required some medicine to reduce anxiety and discomfort. This treatment is called moderate sedation. After receiving the treatment, you may be sleepy, but you will be able to breathe on your own. The effects of the treatment may last for several hours. Follow these instructions along with Activity/Diet recommendations noted above: * Do NOT do anything where dizziness or clumsiness would be dangerous. * Rest quietly at home today, then you can be up and about tomorrow. * Have a responsible person stay with you the rest of today. * You may have had an I.V. today. If so, you may take the dressing off later today. Recommendations Call your doctor if: * Trouble breathing * Continuous vomiting for more than 24 hours * Temperature above 101 degrees * Severe abdominal pain or bloating * Pain not relieved by pain medicine ordered * There is increased drainage or redness from any incision * A large amount of rectal bleeding greater than 2-3 tablespoons. (If you had a polyp/s removed or have hemorrhoids, a small amount of blood - from the rectum is to be expected.) * You have any unanswered questions or concerns. IN THE EVENT OF A SERIOUS EMERGENCY, GO TO THE NEAREST EMERGENCY ROOM Your discharge instructions were prepared by provider Cr Mims. Patient Instructions Signature Page Dayanna Hoyt Patient (or Guardian) Signature/Date: I have read and understand the instructions given to me by my caregivers. Caregiver/RN/Doctor Signature/Date: The above-named patient and/or guardian has received patient instructions on this date. + Original Patient Signature Page (only) stays with chart. Please make copy for patient.
--- NOTE | 2016-10-28 09:13 | Anesthesiology Progress Note ---
Anesthesia Post Op Note Date & Time Oct 28, 2016 at 09:12 Vital Signs Pain Intensity: 0 Vital Signs Past 12 Hours Date Time Temp Pulse Resp B/P (MAP) Pulse Ox O2 Delivery O2 Flow Rate FiO2 10/28/16 08:58 70 16 138/47 (77) 99 Room Air 10/28/16 08:15 36.5 64 20 155/73 (100) 100 Room Air Notes Mental Status: alert / awake / arousable, participated in evaluation Pt Amnestic to Procedure: Yes Nausea / Vomiting: adequately controlled Pain: adequately controlled Airway Patency, RR, SpO2: stable & adequate BP & HR: stable & adequate Hydration State: stable & adequate Anesthetic Complications: no major complications apparent
[2016-10-28 09:28] VITALS: BP 160/68; PULSE 70; O2SAT 97
== END | disposition home or self-care (01) ==
LOC: C.GI 07:33
PROVIDERS: ATTEND Internal Medicine
DX: R13.10 Dysphagia, unspecified (principal); K22.2 Esophageal obstruction; E11.9 Type 2 diabetes mellitus without complications; K21.9 Gastro-esophageal reflux disease without esophagitis; E78.00 Pure hypercholesterolemia, unspecified; D75.9 Disease of blood and blood-forming organs, unspecified; I10 Essential (primary) hypertension; Z95.2 Presence of prosthetic heart valve; Z95.1 Presence of aortocoronary bypass graft; Z95.0 Presence of cardiac pacemaker; Z79.82 Long term (current) use of aspirin; Z79.4 Long term (current) use of insulin; Z79.899 Other long term (current) drug therapy

== ENCOUNTER → 2016-11-02 | Outpatient (CLI) | payer OTHER ==
[~2016-11-02] MED LIST changes: +ERGO1CAP41 PO; -ERGO500011 PO; -FENTANYL CITRATE INJ 50 MCG/1 ML 2 ML VIAL ONE; -LIDOCAINE HCL 2% 2 ML VIAL (20MG/ML) ONE; -PROPOFOL IV EMULSION 10 MG/ML 20 ML VIAL IV ONE; -SODIUM CHLORIDE 0.9% 500ML 500 ML IV ONE
[2016-11-02 13:01] LABS: ESTIMATED AVERAGE GLUCOSE 214 mg/dl; HA1C FLAG Normal (Normal)
[2016-11-02 13:11] LABS: ALT/SGPT 11 U/L (12-78); AST/SGOT 10 U/L (15-37); BLOOD UREA NITROGEN 16 mg/dl (7-18); BUN/CREATININE RATIO 15.5 (10-20); CALCIUM 9.8 mg/dl (8.5-10.1); CARBON DIOXIDE 27 mmol/L (21-32); CHLORIDE 105 mmol/L (98-107); CHOLESTEROL 185 mg/dl (0-200); GLUCOSE 146 mg/dl (70-99); POTASSIUM 4.2 mmol/L (3.5-5.1); SODIUM 138 mmol/L (136-145); TRIGLYCERIDES 146 mg/dl (0-150); VERY LOW DENSITY LIPOPROT CALC 29 mg/dl
[2016-11-02 13:15] LABS: ALB/GLOB RATIO 0.7 (0.9-2); ALKALINE PHOSPHATASE 48 U/L (45-117); CHOLESTEROL/HDL RATIO 4.9; HDL CHOLESTEROL 38 mg/dl; LDL CHOLESTEROL CALCULATED 118 mg/dl; TOTAL IRON BINDING CAPACITY 248 mcg/dl (250-450)
== END | disposition home or self-care (01) ==
LOC: C.LABPVFM 09:11
PROVIDERS: ATTEND Family Medicine
DX: E78.5 Hyperlipidemia, unspecified (principal); R13.10 Dysphagia, unspecified; K21.9 Gastro-esophageal reflux disease without esophagitis; E11.9 Type 2 diabetes mellitus without complications; E53.8 Deficiency of other specified B group vitamins; Z95.0 Presence of cardiac pacemaker

== ENCOUNTER 2016-12-20 14:33 | Inpatient (IN) | payer OTHER ==
[~2016-12-20] VITALS: Ht 170.2 cm; Wt 60.0 kg
[~2016-12-20 14:33] MED LIST changes: -AMOX1TAB43 PO; -AMOX875T PO; -ASPI325T60 PO; -ERGO1CAP41 PO; -FLV400 PO; -RXC5 PO
[2016-12-20] MEDS ORDERED: VANCOMYCIN 1GM/270ML NSS IV STA (14:59)
[2016-12-20] MEDS ORDERED: OPTIRAY 320 IV PRN (15:15)
[2016-12-20] MEDS ORDERED: AMOX1TAB43 PO (15:19)
[2016-12-20 16:15] LABS: BUN/CREATININE RATIO 16.6 (10-20); CALCIUM 9.1 mg/dl (8.5-10.1); CREATININE 1.2 mg/dl (0.60-1.20); POTASSIUM 4.4 mmol/L (3.5-5.1)
[2016-12-20 16:24] LABS: BASO % 0.2 %; BASO ABS # 0.01 K/uL (0-0.2); BETA-HYDROXYBUTYRATE 1.54 mg/dL (0.2-2.81); COMPLETE YES; EOS % 1.3 %; HEMATOCRIT 32.2 % (37-47); IG% 0.3 %; LYMPH ABS # 1.19 K/uL (1.2-3.4); MEAN CELL VOLUME 89.4 fL (80-100); MEAN CORPUSCULAR HEMOGLOBIN 28.3 pg (25-34); MEAN CORPUSCULAR HGB CONC 31.7 g/dl (32-36); MEAN PLATELET VOLUME 10.6 fL (7.4-10.4); MONO % 6.4 %; NEUT % 72.8 %; PLATELET COUNT 193 K/uL (130-400); WHITE BLOOD COUNT 6.25 K/uL (4.8-10.8)
--- NOTE | 2016-12-20 17:23 | DIAGNOSTIC IMAGING REPORT ---
CT SOFT TISSUE NECK WITH CT DOSE: 176.41 mGy.cm CLINICAL HISTORY: Left neck cellulitis. POSSIBLE ABSCESS TECHNIQUE: Helical images were acquired during intravenous administration of 113 cc of Optiray 320. A dose lowering technique was utilized adhering to the principles of ALARA. COMPARISON STUDY: October 31, 2012 FINDINGS: The visualized portions of the lung apices are unremarkable. There is a multinodular thyroid gland. No dominant nodules are visualized. There is left parotid gland enlargement and edema. There is a ring-enhancing cystic masses within or medially adjacent to the left parotid. The 3 largest measure 7 mm, 10 mm, and 15 mm respectively. Given the clinical history, these likely represent abscesses. A necrotic neoplasm could appear similar. Close clinical follow-up is therefore advocated. There are no pathologically enlarged cervical lymph nodes. There is a moderate stenosis of the right internal carotid artery origin. There is a mild stenosis of the left internal carotid artery origin There is no evidence of airway compromise. No mucosal space masses are visualized. IMPRESSION: 1. Multiple ring-enhancing cystic masses within an enlarged and edematous left parotid gland. Given the clinical history, these likely represent multiple abscesses. A necrotic neoplasm could appear similar. Close clinical follow-up is therefore advocated Electronically signed by: Salvatore Em M.D. 12/20/2016 5:21 PM Dictated Date/Time: 12/20/2016 5:13 PM
[2016-12-20] MEDS ORDERED: GLUCOSE 40% GEL 15 GM TUBE PO PRN (19:15)
[2016-12-20] MEDS ORDERED: DEXTROSE 50% 50 ML SYR IV PRN (19:15)
[2016-12-20] MEDS ORDERED: GLUCAGON FOR INJ 1 MG VIAL SQ PRN (19:15)
[2016-12-20] MEDS ORDERED: GLUCOSE 10 TABS/TUBE PO PRN (19:15)
[2016-12-20] MEDS ORDERED: ACETAMINOPHEN 325 MG TAB PO PRN (19:15)
[2016-12-20 19:50] VITALS: BP 149/87; PULSE 63; TEMP 36.7; O2SAT 95; BMI 20.7
[2016-12-20 20:06] VITALS: BP 149/87; PULSE 60; TEMP 36.7; O2SAT 96
[2016-12-20] MEDS ORDERED: PIPERACILL/TAZOBAC IV 3.375 GM in DEXTROSE 5% 100ML 100 ML IV ONE (20:30)
[2016-12-20] MEDS ORDERED: VANCOMYCIN CONSULT ACTIVE PRN (20:30)
[2016-12-20] MEDS ORDERED: PIPERACILL/TAZOBAC CONSULT ACTIVE PRN (20:30)
--- NOTE | 2016-12-20 20:59 | Pharmacy Progress Note ---
Pharmacy Abx Initial Consult Date of Service Dec 20, 2016. Pharmacy Dosing Scope Date of Consult: 12/20/16 Consultation requested by: Dr. Harding Pharmacy is consulted to initiate Vancomycin and Zosyn IV dosing therapies for cellulitis, order appropriate labs and adjust drug dose/frequency. Subjective The patient is a 81 year old female admitted on Dec 20, 2016 at 19:21. Objective Height (Feet): 5 Height (Inches): 7.00 Weight (Kilograms): 60.000 Vital Signs (Past 12Hrs) Vital Signs Past 12 Hours Date Time Temp Pulse Resp B/P (MAP) Pulse Ox O2 Delivery O2 Flow Rate FiO2 12/20/16 20:06 36.7 60 20 149/87 (107) 96 Room Air 12/20/16 19:48 62 18 112/59 99 12/20/16 18:26 66 18 154/51 100 Room Air 12/20/16 16:51 61 16 145/60 99 Room Air 12/20/16 14:40 36.4 66 18 99/46 97 Room Air Lab Results (24Hrs) Laboratory Tests (24 Hours) Test 12/20/16 15:35 White Blood Count 6.25 K/uL (4.8-10.8) Red Blood Count 3.60 M/uL (4.2-5.4) L Hemoglobin 10.2 g/dL (12.0-16.0) L Hematocrit 32.2 % (37-47) L Mean Corpuscular Volume 89.4 fL (80-100) Mean Corpuscular Hemoglobin 28.3 pg (25-34) Mean Corpuscular Hemoglobin Concent 31.7 g/dl (32-36) L Platelet Count 193 K/uL (130-400) Mean Platelet Volume 10.6 fL (7.4-10.4) H Neutrophils (%) (Auto) 72.8 % Lymphocytes (%) (Auto) 19.0 % Monocytes (%) (Auto) 6.4 % Eosinophils (%) (Auto) 1.3 % Basophils (%) (Auto) 0.2 % Neutrophils # (Auto) 4.55 K/uL (1.4-6.5) Lymphocytes # (Auto) 1.19 K/uL (1.2-3.4) L Monocytes # (Auto) 0.40 K/uL (0.11-0.59) Eosinophils # (Auto) 0.08 K/uL (0-0.5) Basophils # (Auto) 0.01 K/uL (0-0.2) Serum creat.: 1.2mg/mL CrCl: 33.6mL/min Risk Factors for Resistance * Antimicrobial use within the last 90 days: Amoxicillin (started 2/3 days ago) Assessment & Plan Assessment 81 year old female with complaints of painful cellulitis after 2-3 days of amoxicillin out-patient therapy. Plan Pharmacy has been consulted for treatment of cellulitis Vancomycin IV * Loading dose: 1000 mg (17 mg/kg) x 1 dose in the ED * Maintenance dose: 1000 mg IV (17 mg/kg) every 24 hours * Estimated P'kinetic levels:ke= 0.0323/hr, t1/2= 21 hrs * Goal trough level for cellulitis : ~15 mcg/mL * Trough level ordered for 12/23/16 before the 4th dose. Piperacillin/tazobactam * 3.375 g bolus administered over 30 minutes, then 3.375 g IV extended infusion every 8 hours for CrCl greater than 20 mL/min Pharmacy will continue to follow and will adjust dose/frequency as necessary. Thank you.
[2016-12-20 21:20] LABS: INR 1.1 (0.9-1.1); PROTHROMBIN TIME (PATIENT) 11.4 SECONDS (9.0-12.0)
[2016-12-20] MEDS: PANTOprazole SOD 40 MG TAB PO SCH (21:52)
[2016-12-20] MEDS: INSULIN GLARGINE SOLOSTAR 100 UNITS/ML 3 ML PEN SC SCH (21:56)
[2016-12-20] MEDS: INSULIN ASPART 100 UNITS/ML 3 ML PEN SC SCH (21:57)
--- NOTE | 2016-12-20 22:32 | EMERGENCY ROOM VISIT NOTE ---
History Report prepared by Gricelda: Itz Pollack Under the Supervision of: Dr. Toñito Gilliam D.O. First contact with patient: 14:55 Chief Complaint: EAR PAIN Stated Complaint: REDNESS LEFT EAR AND LUMP History of Present Illness The patient is a 81 year old female who presents to the Emergency Room with complaints of worsening left ear and neck pain for the past week. She currently rates her discomfort as an 8/10 in severity. The patient states that she has had this lump on her neck for a long time, though it was usually drained, though it has not drained for the past two years. The patient has been on amoxicillin for 2-3 days, though she states that it has not helped her. Source of History: patient Onset: a week ago Position: ear (left), neck Symptom Intensity: 8/10 Quality: other (a lump) Timing: worsening Review of Systems See HPI for pertinent positives & negatives. A total of 10 systems reviewed and were otherwise negative. Past Medical & Surgical Medical Problems: (1) Acute parotitis (2) Cellulitis and abscess of neck (3) Diabetes (4) Hyperlipidemia (5) Influenza A (6) Pacemaker Social History Smoking Status: Never Smoker Marital Status: Occupation Status: retired Current/Historical Medications Scheduled Amoxicillin & Pot Clavulanate (Amoxicillin/Clavulanate P), 1 TAB PO Q12 Aspirin (Aspirin Chewable), 81 MG PO QAM Cholecalciferol (Vitamin D3), 1 CAP PO QAM Cyanocobalamin (Vitamin B12), 1 TAB PO QAM Insulin Isophan/Regular (Humulin 70/30), 7-10 UNITS SC QAM Metoprolol Succinate (Toprol Xl), 25 MG PO QAM Omeprazole (Prilosec), 20 MG PO BID Pravastatin Sod (Pravastatin Sodium), 1 TAB PO QAM Allergies Coded Allergies: Rosuvastatin (Verified Adverse Reaction, Unknown, UPSET STOMACH, 12/20/16) Simvastatin (Verified Adverse Reaction, Unknown, UPSET STOMACH, 12/20/16) Physical Exam Vital Signs Date Time Temp Pulse Resp B/P (MAP) Pulse Ox O2 Delivery O2 Flow Rate FiO2 12/20/16 18:26 66 18 154/51 100 Room Air 12/20/16 16:51 61 16 145/60 99 Room Air 12/20/16 14:40 36.4 66 18 99/46 97 Room Air Physical Exam CONSTITUTIONAL/VITAL SIGNS: Reviewed / noted above. GENERAL: Non-toxic in appearance. INTEGUMENTARY: Warm, dry, and [place]. HEAD: Normocephalic. EYES: without scleral icterus or trauma. ENT/OROPHARYNX: clear and moist. LYMPHADENOPATHY/NECK: There is a diffuse redness in the area of the left SCM from the bottom of the ear to the area of the clavicle. There are two tender, swollen, and indurated area on the upper portion of the cellulitis concerning for abscess. Is supple without lymphadenopathy or meningismus. RESPIRATORY: Lungs clear and equal. CARDIOVASCULAR: Regular rate and rhythm. GI/ABDOMEN: Soft and nontender. No organomegaly or pulsatile mass. No rebound or guarding. Normal bowel sounds. EXTREMITIES: Warm and well perfused. BACK: No CVA tenderness. NEUROLOGICAL: Intact without focal deficits. PSYCHIATRIC: normal affect. MUSCULOSKELETAL: Normally developed with good muscle tone. Medical Decision & Procedures ER Provider Diagnostic Interpretation: Radiology results as stated below per my review and radiologist interpretation: CT SOFT TISSUE NECK WITH CT DOSE: 176.41 mGy.cm CLINICAL HISTORY: Left neck cellulitis. POSSIBLE ABSCESS TECHNIQUE: Helical images were acquired during intravenous administration of 113 cc of Optiray 320. A dose lowering technique was utilized adhering to the principles of ALARA. COMPARISON STUDY: October 31, 2012 FINDINGS: The visualized portions of the lung apices are unremarkable. There is a multinodular thyroid gland. No dominant nodules are visualized. There is left parotid gland enlargement and edema. There is a ring-enhancing cystic masses within or medially adjacent to the left parotid. The 3 largest measure 7 mm, 10 mm, and 15 mm respectively. Given the clinical history, these likely represent abscesses. A necrotic neoplasm could appear similar. Close clinical follow-up is therefore advocated. There are no pathologically enlarged cervical lymph nodes. There is a moderate stenosis of the right internal carotid artery origin. There is a mild stenosis of the left internal carotid artery origin There is no evidence of airway compromise. No mucosal space masses are visualized. IMPRESSION: 1. Multiple ring-enhancing cystic masses within an enlarged and edematous left parotid gland. Given the clinical history, these likely represent multiple abscesses. A necrotic neoplasm could appear similar. Close clinical follow-up is therefore advocated Electronically signed by: Salvatore Em M.D. 12/20/2016 5:21 PM Dictated Date/Time: 12/20/2016 5:13 PM Laboratory Results 12/20/16 15:35 Red Blood Count 3.60, Mean Corpuscular Volume 89.4, Mean Corpuscular Hemoglobin 28.3, Mean Corpuscular Hemoglobin Concent 31.7, Mean Platelet Volume 10.6, Neutrophils (%) (Auto) 72.8, Lymphocytes (%) (Auto) 19.0, Monocytes (%) (Auto) 6.4, Eosinophils (%) (Auto) 1.3, Basophils (%) (Auto) 0.2, Neutrophils # (Auto) 4.55, Lymphocytes # (Auto) 1.19, Monocytes # (Auto) 0.40, Eosinophils # (Auto) 0.08, Basophils # (Auto) 0.01 12/20/16 15:35 Test 12/20/16 15:35 White Blood Count 6.25 K/uL (4.8-10.8) Red Blood Count 3.60 M/uL (4.2-5.4) Hemoglobin 10.2 g/dL (12.0-16.0) Hematocrit 32.2 % (37-47) Mean Corpuscular Volume 89.4 fL (80-100) Mean Corpuscular Hemoglobin 28.3 pg (25-34) Mean Corpuscular Hemoglobin Concent 31.7 g/dl (32-36) Platelet Count 193 K/uL (130-400) Mean Platelet Volume 10.6 fL (7.4-10.4) Neutrophils (%) (Auto) 72.8 % Lymphocytes (%) (Auto) 19.0 % Monocytes (%) (Auto) 6.4 % Eosinophils (%) (Auto) 1.3 % Basophils (%) (Auto) 0.2 % Neutrophils # (Auto) 4.55 K/uL (1.4-6.5) Lymphocytes # (Auto) 1.19 K/uL (1.2-3.4) Monocytes # (Auto) 0.40 K/uL (0.11-0.59) Eosinophils # (Auto) 0.08 K/uL (0-0.5) Basophils # (Auto) 0.01 K/uL (0-0.2) RDW Standard Deviation 48.0 fL (36.4-46.3) RDW Coefficient of Variation 14.5 % (11.5-14.5) Immature Granulocyte % (Auto) 0.3 % Immature Granulocyte # (Auto) 0.02 K/uL (0.00-0.02) Anion Gap 6.0 mmol/L (3-11) Est Creatinine Clear Calc Drug Dose 33.6 ml/min Estimated GFR () 48.4 Estimated GFR (Non- 41.8 BUN/Creatinine Ratio 16.6 (10-20) Calcium Level 9.1 mg/dl (8.5-10.1) Beta-Hydroxybutyric Acid 1.54 mg/dL (0.2-2.81) Laboratory results as stated above per my review. Medications Administered Medications (Trade) Dose Ordered Sig/Minh Route Start Time Stop Time Status Last Admin Dose Admin Vancomycin HCl (Vancomycin 1gm/ 270ml Nss) 1 gm NOW STAT IV 12/20/16 14:59 12/20/16 15:02 DC 12/20/16 15:51 1 GM ED Course 1455: Previous medical records were reviewed. The patient was evaluated in room B4. A complete history and physical examination was performed. 1459: Vancomycin 1gm/270ml NSS IV 1748: I discussed the patient's case with Dr. Sierra, ENT, and recommends for medicine to admit the patient. He thinks that the radiologist should try to aspirate it, ad consult him if it does not work. 1755: .I reevaluated the patient, and she understands the treatment plan. 1759: Discussed the patient's case with Dr. Andrews. The patient will be evaluated for further treatment and disposition. Medical Decision Differential diagnosis: Etiologies such as cellulitis, abscess, MRSA infection, DVT, necrotizing fasciitis, dermatitis, drug eruption, as well as others were entertained.. This is an 81-year-old female who presents to the ED with a chief complaint of a cellulitis. The patient states that she noticed redness and tenderness on the left lateral aspect of her neck for the past several days. She states that she has had the symptoms before and required drainage from the area. This was done by an ENT specialist who is no longer in the area. The patient has an exam that suggests cellulitis of the left lateral anterior neck with possibly an abscess or early abscess in the left upper sternocleidomastoid area. She has been on amoxicillin for the past 3 days without improvement, according to the son. The patient's vital signs are normal. She is afebrile. CBC was unremarkable, PRP was unremarkable with exception of a glucose of 321. The patient was started on IV vancomycin. The patient will be seen by the hospitalist service. I did speak with the ENT doctor, Dr. Sierra, who recommended IV antibiotics, medical management and radiology consult for drainage of abscesses. The patient was told the results. I spoke with the hospitalist, who will see the patient for further inpatient evaluation and care. Medication Reconcilliation Current Medication List: was personally reviewed by me Blood Pressure Screening Patient's blood pressure: Normal blood pressure Consults Time Called: 173 Consulting Physician: Dr. Sierra, ENT Returned Call: [phone] I discussed the patient's case with Dr. Sierra, ENT, and recommends for medicine to admit the patient. He thinks that the radiologist should try to aspirate it, ad consult him if it does not work. Additional Consults: Time Called: 1750 Consulted Physician: Dr. Andrews Returned Call: 1759 Additional Comments: Discussed the patient's case with Dr. Andrews. The patient will be evaluated for further treatment and disposition. Impression Primary Impression: Cellulitis of neck Additional Impression: Neck abscess Scribe Attestation The scribe's documentation has been prepared under my direction and personally reviewed by me in its entirety. I confirm that the note above accurately reflects all work, treatment, procedures, and medical decision making performed by me. Departure Information Dispostion Being Evaluated By Hospitalist Referrals Agapito Lynne M.D. (PCP) Patient Instructions My [facility] Problem Qualifiers
[2016-12-21 00:01] VITALS: BP 92/51; PULSE 65; TEMP 36.9; O2SAT 99
[2016-12-21 00:05] VITALS: O2SAT 99
--- NOTE | 2016-12-21 00:56 | History and Physical ---
History & Physical Date & Time of Service: Dec 20, 2016 at 19:39 Chief Complaint: Redness Left Ear And Lump Primary Care Physician: Agapito Lynne M.D. History of Present Illness Source: patient, family Pt is a arnaud 81 yo female who presents to the ER with significant left sided neck pain, redness, and an enlarging lump. She first noticed it last week and went to her PCP office on 12/16/16. She was treated with Augmentin and has been taking it bid as prescribed. Afebrile at home, but when symptoms worsened, her son brought her in. She had previous lumps in her left parotid gland thought to be sialadenitis in the past one of which had to be aspirated with a needle, but nothing like this. She denies CP or SOB, no abd pain, no N/V. CT neck soft tissue in the ER showed Multiple ring-enhancing cystic masses within an enlarged and edematous left parotid gland. Given the clinical history , these likely represent multiple abscesses. A necrotic neoplasm could appear similar. She will be admitted for acute suppurative parotitis and neck cellulitis. 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 Moderate carotid artery stenosis GERD with Schatzki's rings requiring dilatation Recent esophageal candidiasis History of sialadenitis Vitamin B12 deficiency Dry eye syndrome History of hyperparathyroidism Past surgical history: Parathyroidectomy Bioprosthetic aortic valve replacement 4 vessel CABG in 2007 Pacemaker placement Cholecystectomy Family History noncontributory Social History Smoking Status: Never Smoker Alcohol Use: none Drug Use: none Marital Status: Housing status: lives alone (but has multiple family members and friends to visit her on a daily basis) Occupational Status: retired Immunizations History of Influenza Vaccine: No History of Tetanus Vaccine?: Unknown History of Pneumococcal: No History of Hepatitis B Vaccine: Unknown Multi-Drug Resistant Organisms History of MDRO: No Allergies Coded Allergies: Rosuvastatin (Verified Adverse Reaction, Unknown, UPSET STOMACH, 12/20/16) Simvastatin (Verified Adverse Reaction, Unknown, UPSET STOMACH, 12/20/16) Home Medications Scheduled Amoxicillin & Pot Clavulanate (Amoxicillin/Clavulanate P), 1 TAB PO Q12 Aspirin (Aspirin Chewable), 81 MG PO QAM Cholecalciferol (Vitamin D3), 1 CAP PO QAM Cyanocobalamin (Vitamin B12), 1 TAB PO QAM Insulin Isophan/Regular (Humulin 70/30), 7-10 UNITS SC QAM Metoprolol Succinate (Toprol Xl), 25 MG PO QAM Omeprazole (Prilosec), 20 MG PO BID Pravastatin Sod (Pravastatin Sodium), 1 TAB PO QAM Review of Systems Constitutional: No fever, No chills, No sweats Eyes: No problem reported Respiratory: No shortness of breath Cardiovascular: No chest pain Abdomen: No pain, No nausea, No vomiting Genitourinary - Female: No problem reported Neurologic: No problem reported Psychiatric: No problem reported Endocrine: No problem reported Hematologic / Lymphatic: No problem reported Integumentary: No problem reported Allergic / Immunologic: No problem reported Physical Exam Vital Signs Date Time Temp Pulse Resp B/P (MAP) Pulse Ox O2 Delivery O2 Flow Rate FiO2 12/20/16 18:26 66 18 154/51 100 Room Air 12/20/16 16:51 61 16 145/60 99 Room Air 12/20/16 14:40 36.4 66 18 99/46 97 Room Air General Appearance: no apparent distress, + thin (very pleasant, oriented) Head: normocephalic Eyes: normal inspection, sclerae normal ENT: pharynx normal Neck: trachea midline, + pertinent finding (left submandibular and subarticular region with large area of exquisite tenderness, fluctuance mass, with intense erythema spreading from the 3 x 4 cm mass down the anterior portion of the left neck to the clavicle, no drainage) Respiratory/Chest: lungs clear, normal breath sounds, no respiratory distress, no accessory muscle use Cardiovascular: regular rate, rhythm, no edema, no gallop, + systolic murmur ( soft, 2/6 at right upper sternal border) Abdomen/GI: normal bowel sounds, non tender, soft, no organomegaly, no pulsatile mass Back: normal inspection Extremities/Musculoskelatal: normal inspection, no calf tenderness, no pedal edema Neurologic/Psych: no motor/sensory deficits, alert, normal mood/affect, oriented x 3 Skin: warm/dry Lymphatic: no adenopathy Diagnostics Laboratory Results Results Past 24 Hours Test 12/20/16 15:35 12/20/16 19:17 Range/Units White Blood Count 6.25 4.8-10.8 K/uL Red Blood Count 3.60 4.2-5.4 M/uL Hemoglobin 10.2 12.0-16.0 g/dL Hematocrit 32.2 37-47 % Mean Corpuscular Volume 89.4 80-100 fL Mean Corpuscular Hemoglobin 28.3 25-34 pg Mean Corpuscular Hemoglobin Concent 31.7 32-36 g/dl Platelet Count 193 130-400 K/uL Mean Platelet Volume 10.6 7.4-10.4 fL Neutrophils (%) (Auto) 72.8 % Lymphocytes (%) (Auto) 19.0 % Monocytes (%) (Auto) 6.4 % Eosinophils (%) (Auto) 1.3 % Basophils (%) (Auto) 0.2 % Neutrophils # (Auto) 4.55 1.4-6.5 K/uL Lymphocytes # (Auto) 1.19 1.2-3.4 K/uL Monocytes # (Auto) 0.40 0.11-0.59 K/uL Eosinophils # (Auto) 0.08 0-0.5 K/uL Basophils # (Auto) 0.01 0-0.2 K/uL RDW Standard Deviation 48.0 36.4-46.3 fL RDW Coefficient of Variation 14.5 11.5-14.5 % Immature Granulocyte % (Auto) 0.3 % Immature Granulocyte # (Auto) 0.02 0.00-0.02 K/uL Sodium Level 133 136-145 mmol/L Potassium Level 4.4 3.5-5.1 mmol/L Chloride Level 101 98-107 mmol/L Carbon Dioxide Level 26 21-32 mmol/L Anion Gap 6.0 3-11 mmol/L Blood Urea Nitrogen 20 7-18 mg/dl Creatinine 1.20 0.60-1.20 mg/dl Est Creatinine Clear Calc Drug Dose 33.6 ml/min Estimated GFR () 48.4 Estimated GFR (Non- 41.8 BUN/Creatinine Ratio 16.6 10-20 Random Glucose 321 70-99 mg/dl Calcium Level 9.1 8.5-10.1 mg/dl Beta-Hydroxybutyric Acid 1.54 0.2-2.81 mg/dL Bedside Glucose 218 70-90 mg/dl Diagnostic Radiology CT images personally reviewed by co CT SOFT TISSUE NECK WITH CT DOSE: 176.41 mGy.cm CLINICAL HISTORY: Left neck cellulitis. POSSIBLE ABSCESS TECHNIQUE: Helical images were acquired during intravenous administration of 113 cc of Optiray 320. A dose lowering technique was utilized adhering to the principles of ALARA. COMPARISON STUDY: October 31, 2012 FINDINGS: The visualized portions of the lung apices are unremarkable. There is a multinodular thyroid gland. No dominant nodules are visualized. There is left parotid gland enlargement and edema. There is a ring-enhancing cystic masses within or medially adjacent to the left parotid. The 3 largest measure 7 mm, 10 mm, and 15 mm respectively. Given the clinical history, these likely represent abscesses. A necrotic neoplasm could appear similar. Close clinical follow-up is therefore advocated. There are no pathologically enlarged cervical lymph nodes. There is a moderate stenosis of the right internal carotid artery origin. There is a mild stenosis of the left internal carotid artery origin There is no evidence of airway compromise. No mucosal space masses are visualized. IMPRESSION: 1. Multiple ring-enhancing cystic masses within an enlarged and edematous left parotid gland. Given the clinical history, these likely represent multiple abscesses. A necrotic neoplasm could appear similar. Close clinical follow-up is therefore advocated Impression Assessment and Plan Pt is a arnaud 81 yo female who presents to the ER with significant left sided neck pain, redness, and an enlarging lump. She first noticed it last week and went to her PCP office on 12/16/16. She was treated with Augmentin and has been taking it bid as prescribed. Afebrile at home, but when symptoms worsened, her son brought her in. She had previous lumps in her left parotid gland thought to be sialadenitis in the past, but nothing like this. She denies CP or SOB, no abd pain, no N/V. CT neck soft tissue in the ER showed Multiple ring-enhancing cystic masses within an enlarged and edematous left parotid gland. Given the clinical history , these likely represent multiple abscesses. A necrotic neoplasm could appear similar. She will be admitted for acute suppurative parotitis and neck cellulitis. No leukocytosis, no fever, no sepsis. -Discussed case on phone with [facility]--> they do not perform US- guided aspiration of neck masses -Discussed case with ENT [facility] psychiatrist Dr. Sierra-he will see the pt tomorrow and suggested IV abx as is already ordered, plus warm packs qid and biting lemon wedges to stimulate saliva production in case of sialolith -start Zosyn in addition to Vanco given that she is a diabetic and failed outpt Augmentin, need broader coverage to include for MRSA -plan for possible aspiration or I&D tomorrow with ENT -With history of dry eyes, severe dry mouth, recurrent sialadenitis and parotid issues, question if she has Sjogren's syndrome-Will order Sjogren's antibodies and recommended referral as an outpatient to see rheumatology CAD s/p CABG/h/o AVR, PPM/Mod SERAFIN/hyperlipidemia-all stable, no active issues -continue home meds of aspirin, Toprol, and pravastatin Diabetes mellitus type 2-last hemoglobin A1c was 9.1% 10/2016 -uncontrolled -Start Lantus 10 units daily at bedtime -Sliding-scale insulin -Glucose checks before every meal CHF -Recheck hemoglobin A1c GERD with Schatzki's rings requiring dilatation/Recent esophageal candidiasis- recently completed course of Diflucan, no current issues -Continue Protonix 40 mg by mouth twice a day Vitamin B12 deficiency-no current issues -Continue oral B12 supplementation Dry eye syndrome-ongoing -see workup as above for Sjogren's -Continue Restasis-we'll have to bring in from home History of hyperparathyroidism status post parathyroidectomy-no current issues, serum calcium here is normal Prophylaxis-heparin subcutaneous Disposition-DO NOT RESUSCITATE Expect at least 3-4 day stay Level of Care Med/Surg Resuscitation Status DO NOT RESUSCITATE VTE Prophylaxis VTE Risk Assessment Done? Y/N: Yes Risk Level: Low Given or contraindicated: Unfractionated heparin SQ Social Service Consult >80 yr.& Lives Alone Additional Copies To Agapito Lynne M.D.
[2016-12-21] MEDS: PIPERACILL/TAZOBAC IV 3.375 GM in DEXTROSE 5% 100ML 100 ML IV SCH ×3 (02:01→17:25)
[2016-12-21] MEDS: HEPARIN SOD 5000 UNIT/0.5 ML CARP SQ SCH ×2 (05:31→17:29)
[2016-12-21 06:58] LABS: BASO % 0.2 %; BASO ABS # 0.01 K/uL (0-0.2); COMPLETE YES; EOS % 2.6 %; HEMATOCRIT 32.1 % (37-47); IG% 0.4 %; LYMPH % 16.8 %; MEAN CELL VOLUME 89.4 fL (80-100); MEAN CORPUSCULAR HEMOGLOBIN 28.7 pg (25-34); MEAN CORPUSCULAR HGB CONC 32.1 g/dl (32-36); MEAN PLATELET VOLUME 9.7 fL (7.4-10.4); MONO % 7.9 %; NEUT % 72.1 %; PLATELET COUNT 176 K/uL (130-400); RED BLOOD COUNT 3.59 M/uL (4.2-5.4); WHITE BLOOD COUNT 5.35 K/uL (4.8-10.8)
[2016-12-21 07:19] VITALS: BP 101/43; PULSE 79; TEMP 36.5; O2SAT 96
[2016-12-21 07:23] LABS: ESTIMATED AVERAGE GLUCOSE 252 mg/dl; HA1C FLAG Normal (Normal)
[2016-12-21 07:25] LABS: BUN/CREATININE RATIO 15.9 (10-20); C-REACTIVE PROTEIN 1.12 mg/dl (0-0.29); CALCIUM 8.7 mg/dl (8.5-10.1); CREATININE 0.98 mg/dl (0.60-1.20); MAGNESIUM 1.7 mg/dl (1.8-2.4); POTASSIUM 3.8 mmol/L (3.5-5.1)
[2016-12-21] MEDS: CHOLECALCIFEROL 1000 INTER.UNIT TAB PO SCH (07:59)
[2016-12-21] MEDS: CYANOCOBALAMIN 500 MCG TAB (VIT B-12) PO SCH (08:00)
[2016-12-21] MEDS: METOPROLOL SUCC 25MG EXT REL TAB PO SCH (08:00)
[2016-12-21] MEDS: ASPIRIN 81 MG ECTAB PO SCH (08:00)
[2016-12-21] MEDS: PANTOprazole SOD 40 MG TAB PO SCH ×2 (08:01→20:23)
[2016-12-21] MEDS: PRAVASTATIN SOD 10 MG TAB PO SCH (08:01)
[2016-12-21] MEDS ORDERED: MAGNESIUM SULFATE 1GM / D5W 1 GM in PREMIXED IN D5W 100 ML IV ONE (09:00)
[2016-12-21] MEDS: INSULIN ASPART 100 UNITS/ML 3 ML PEN SC SCH ×4 (09:11→20:32)
[2016-12-21 14:02] VITALS: BP 99/49; PULSE 59; TEMP 36.7; O2SAT 99
[2016-12-21 14:46] VITALS: Ht 170.2 cm; Wt 60.0 kg
[2016-12-21 14:56] VITALS: BP 84/52; PULSE 61; TEMP 36.7; O2SAT 99
[2016-12-21] MEDS ORDERED: VANCOMYCIN INJ 1,000 MG in SODIUM CHLORIDE 0.9% 250ML 250 ML IV SCH (16:00)
--- NOTE | 2016-12-21 16:20 | Hospitalist Progress Note ---
Hospitalist Progress Note Date of Service Dec 21, 2016. Subjective Pt evaluation today including: conversation w/ patient Pt feels like she is not much better. Remains afebrile, still painful in the neck. Glucose much better controlled here but she feels like it's too low and is requesting a sugary snack Respiratory: No shortness of breath Cardiovascular: No chest pain Abdomen: + constipation, No pain All Other Systems: Reviewed and Negative Objective Vital Signs Date Time Temp Pulse Resp B/P (MAP) Pulse Ox O2 Delivery O2 Flow Rate FiO2 12/21/16 14:56 36.7 61 18 84/52 (63) 99 Room Air 12/21/16 14:02 36.7 59 18 99/49 (66) 99 Room Air 12/21/16 08:00 Room Air 12/21/16 07:19 36.5 79 18 101/43 (62) 96 Room Air 12/21/16 00:05 99 Room Air 12/21/16 00:01 36.9 65 20 92/51 (65) 99 Room Air 12/20/16 20:06 36.7 60 20 149/87 (107) 96 Room Air 12/20/16 19:50 36.7 63 20 149/87 95 Room Air 12/20/16 19:48 62 18 112/59 99 12/20/16 18:26 66 18 154/51 100 Room Air 12/20/16 16:51 61 16 145/60 99 Room Air Physical Exam General Appearance: no apparent distress, + thin Eyes: normal inspection, sclerae normal ENT: + pertinent finding ([place]; left side of neck with large fluctuant mass with overlying and surrounding erythema, +TTP, erythema spreads down left anterior neck is perhaps slightly improved from yesterday) Neck: trachea midline Respiratory/Chest: lungs clear, normal breath sounds, no respiratory distress, no accessory muscle use Cardiovascular: regular rate, rhythm, no edema, no gallop, no murmur Abdomen: normal bowel sounds, non tender, soft, no organomegaly, no pulsatile mass Extremities: non-tender, normal inspection, no pedal edema, no calf tenderness Neurologic/Psychiatric: alert, normal mood/affect Skin: normal color, warm/dry Laboratory Results Last 24 Hours Test 12/20/16 19:17 12/20/16 20:06 12/20/16 21:01 12/21/16 06:20 Bedside Glucose 218 mg/dl 220 mg/dl Prothrombin Time 11.4 SECONDS Prothromb Time International Ratio 1.1 Activated Partial Thromboplast Time 26.1 SECONDS Partial Thromboplastin Ratio 1.0 White Blood Count 5.35 K/uL Red Blood Count 3.59 M/uL Hemoglobin 10.3 g/dL Hematocrit 32.1 % Mean Corpuscular Volume 89.4 fL Mean Corpuscular Hemoglobin 28.7 pg Mean Corpuscular Hemoglobin Concent 32.1 g/dl Platelet Count 176 K/uL Mean Platelet Volume 9.7 fL Neutrophils (%) (Auto) 72.1 % Lymphocytes (%) (Auto) 16.8 % Monocytes (%) (Auto) 7.9 % Eosinophils (%) (Auto) 2.6 % Basophils (%) (Auto) 0.2 % Neutrophils # (Auto) 3.86 K/uL Lymphocytes # (Auto) 0.90 K/uL Monocytes # (Auto) 0.42 K/uL Eosinophils # (Auto) 0.14 K/uL Basophils # (Auto) 0.01 K/uL RDW Standard Deviation 47.8 fL RDW Coefficient of Variation 14.5 % Immature Granulocyte % (Auto) 0.4 % Immature Granulocyte # (Auto) 0.02 K/uL Erythrocyte Sedimentation Rate 53 mm/hr Sodium Level 137 mmol/L Potassium Level 3.8 mmol/L Chloride Level 105 mmol/L Carbon Dioxide Level 28 mmol/L Anion Gap 4.0 mmol/L Blood Urea Nitrogen 16 mg/dl Creatinine 0.98 mg/dl Est Creatinine Clear Calc Drug Dose 41.2 ml/min Estimated GFR () 61.8 Estimated GFR (Non- 53.3 BUN/Creatinine Ratio 15.9 Random Glucose 88 mg/dl Estimated Average Glucose 252 mg/dl Hemoglobin A1c 10.4 % Calcium Level 8.7 mg/dl Magnesium Level 1.7 mg/dl C-Reactive Protein 1.12 mg/dl Test 12/21/16 07:26 12/21/16 11:22 Bedside Glucose 94 mg/dl 170 mg/dl Assessment and Plan Pt is a arnaud 81 yo female who presents to the ER with significant left sided neck pain, redness, and an enlarging lump. She first noticed it last week and went to her PCP office on 12/16/16. She was treated with Augmentin and has been taking it bid as prescribed. Afebrile at home, but when symptoms worsened, her son brought her in. She had previous lumps in her left parotid gland thought to be sialadenitis in the past. CT neck soft tissue in the ER showed Multiple ring-enhancing cystic masses within an enlarged and edematous left parotid gland. Given the clinical history , these likely represent multiple abscesses. A necrotic neoplasm could appear similar. She will be admitted for acute suppurative parotitis and neck cellulitis. No leukocytosis, no fever, no sepsis. -Discussed case with ENT Dr. Sierra again today-he will see the pt today and probably perform aspiration -continue warm packs qid and biting lemon wedges to stimulate saliva production in case of sialolith -continue Zosyn in addition to Vanco given that she is a diabetic and failed outpt Augmentin, need broader coverage to include for MRSA -With history of dry eyes, severe dry mouth, recurrent sialadenitis and parotid issues, question if she has Sjogren's syndrome-Will order Sjogren's antibodies and recommended referral as an outpatient to see rheumatology CAD s/p CABG/h/o AVR, PPM/Mod SERAFIN/hyperlipidemia-all stable, no active issues -continue home meds of aspirin, Toprol, and pravastatin Diabetes mellitus type 2-last hemoglobin A1c was 9.1% 10/2016--> 10.4% now - uncontrolled and she is confused about how she takes her insulin at home. Hyperglycemia from yesterday now improved -continue Lantus 10 units daily at bedtime -Appreciate CDE consultation--> will need to d/w son about assistance with insulin regimen -continue Sliding-scale insulin -Glucose checks GERD with Schatzki's rings requiring dilatation/Recent esophageal candidiasis- recently completed course of Diflucan, no current issues -Continue Protonix 40 mg by mouth twice a day Vitamin B12 deficiency-no current issues -Continue oral B12 supplementation Dry eye syndrome-ongoing -see workup as above for Sjogren's -Continue Restasis-will have to bring in from home History of hyperparathyroidism status post parathyroidectomy-no current issues, serum calcium here is normal Prophylaxis-heparin subcutaneous Disposition-DO NOT RESUSCITATE Expect at least 3-4 day stay
[2016-12-21] MEDS: INSULIN GLARGINE SOLOSTAR 100 UNITS/ML 3 ML PEN SC SCH (20:31)
--- NOTE | 2016-12-21 22:50 | ENT CONSULTATION ---
DATE OF CONSULTATION: 12/21/2016 REQUESTING PHYSICIAN: Dr. Cassandra Harding. INDICATION: Left neck and parotid abscess. HISTORY OF PRESENT ILLNESS: This is an 81-year-old woman who was admitted through the Emergency Department in the evening of 12/20/2016. She was admitted by Dr. Cassandra Harding. She has had left-sided neck pain and redness for about a week. This was first noticed on 12/16/2016 and she was treated with Augmentin, but this did not resolve the issue. Although she was afebrile at home, given the discomfort she was experiencing, she asked her son to bring her to the Emergency Department at [facility]. It is unclear to Dr. Harding and myself whether or not the growth on the left side of her neck could have been present for more than a week. Dr. Harding is making efforts to try to contact the son to determine if there was a preexisting mass on the left side of the neck. The patient was able to relay a history that she has had aspiration done in the past of pus in her left parotid gland and that she has had infections of her left parotid gland but nothing as severe as this. She had a CT scan of the neck done prior to admission while still in the ED that showed multiple ring-enhancing cystic masses with an enlarged and edematous left parotid gland. It was highly suspicious for an abscess. A necrotic neoplasm could also have a similar appearance. The patient was admitted and placed on IV Unasyn and vancomycin. IV steroids were not used as she is diabetic and her admitting glucose was around 300. She did receive warm packs, sialogogues, and IV dehydration. The patient has not noticed much difference in the 24 hours that she has been present in the hospital. However, in my discussions with Dr. Harding, Dr. Harding feels that maybe the erythema in the neck is a bit better. As far as the patient's past medical and surgical history, they are all nicely recorded within Dr. Harding's admitting history and physical. I will now just focus in on the exam the time I saw her. PHYSICAL EXAM The patient was examined around 5:45 p.m. on 12/21/2016, in room 250. She was awake and alert and cooperative. Her latest temperature done at 1456 this afternoon was 36.7 oral. Pulse was 61. Blood pressure was 84/52. Pulse oximetry was 99% on room air. Exam of her left neck showed a mobile but firm lesion that was about 8 cm superior-inferior direction and about 6 cm anterior-posterior. There was an area of fluctuance superficially and this was aspirated with an 18-gauge needle and about 1 mL of pus was obtained. This was then sent for Gram stain along with aerobic and anaerobic cultures. There was erythema with increased temperature to touch over the left neck. ASSESSMENT AND PLAN: It is difficult at this point to determine whether or not she has a neoplasm with necrosis and subsequent abscess formation and infection versus or whether this is just an extremely severe sialadenitis with cervical lymphadenopathy and abscess. The pus obtained today will help obtain a culture to make sure that she is on the best possible antibiotic therapy. In the interim, she should be continued with her present IV antibiotic regimen, warm packs, IV hydration. Dr. Harding will make efforts to ask the son whether or not the left neck mass could have been there longer than a week. This will be extremely important part of the history to determine if this was a preexisting neoplasm. Depending on the time course of defervescence of her acute infection, the next step will be determined. This may involve core biopsy or open biopsy. GEOVANNA
[2016-12-21 23:39] VITALS: BP 133/80; PULSE 61; TEMP 36.7; O2SAT 98
[2016-12-22] MEDS: PIPERACILL/TAZOBAC IV 3.375 GM in DEXTROSE 5% 100ML 100 ML IV SCH ×3 (02:29→18:38)
[2016-12-22] MEDS: HEPARIN SOD 5000 UNIT/0.5 ML CARP SQ SCH ×2 (05:45→18:29)
[2016-12-22 06:30] LABS: BASO % 0.2 %; BASO ABS # 0.01 K/uL (0-0.2); COMPLETE YES; EOS % 2.2 %; HEMATOCRIT 35.2 % (37-47); LYMPH % 31.3 %; LYMPH ABS # 1.56 K/uL (1.2-3.4); MEAN CELL VOLUME 90.3 fL (80-100); MEAN CORPUSCULAR HEMOGLOBIN 27.7 pg (25-34); MEAN CORPUSCULAR HGB CONC 30.7 g/dl (32-36); MEAN PLATELET VOLUME 10.2 fL (7.4-10.4); MONO % 7.6 %; NEUT % 58.7 %; PLATELET COUNT 203 K/uL (130-400); WHITE BLOOD COUNT 4.98 K/uL (4.8-10.8)
[2016-12-22 07:05] LABS: BUN/CREATININE RATIO 12.5 (10-20); CALCIUM 8.8 mg/dl (8.5-10.1); CREATININE 1.1 mg/dl (0.60-1.20); MAGNESIUM 2.2 mg/dl (1.8-2.4); POTASSIUM 3.8 mmol/L (3.5-5.1)
[2016-12-22 07:16] VITALS: BP 106/58; PULSE 61; TEMP 36.2; O2SAT 98
[2016-12-22] MEDS: VANCOMYCIN INJ 1,000 MG in SODIUM CHLORIDE 0.9% 250ML 250 ML IV SCH (07:53)
[2016-12-22] MEDS: ASPIRIN 81 MG ECTAB PO SCH (07:56)
[2016-12-22] MEDS: CHOLECALCIFEROL 1000 INTER.UNIT TAB PO SCH (07:56)
[2016-12-22] MEDS: CYANOCOBALAMIN 500 MCG TAB (VIT B-12) PO SCH (07:56)
[2016-12-22] MEDS: PANTOprazole SOD 40 MG TAB PO SCH ×2 (07:56→21:23)
[2016-12-22] MEDS: METOPROLOL SUCC 25MG EXT REL TAB PO SCH (07:56)
[2016-12-22] MEDS: PRAVASTATIN SOD 10 MG TAB PO SCH (07:57)
[2016-12-22] MEDS: INSULIN ASPART 100 UNITS/ML 3 ML PEN SC SCH ×4 (08:00→21:00)
[2016-12-22 14:46] LABS: ANTI-SS-A >8.0 POS AI (<1.0 NEG); ANTI-SS-B <1.0 NEG AI (<1.0 NEG)
[2016-12-22 15:01] VITALS: BP 123/62; PULSE 60; TEMP 36.7; O2SAT 98
--- NOTE | 2016-12-22 18:35 | Hospitalist Progress Note ---
Hospitalist Progress Note Date of Service Dec 22, 2016. Subjective Pt evaluation today including: conversation w/ patient, conversation w/ family (son Cam), conversation w/ senior financial consultant (Dr. Sierra, ENT) Pt still with a lot of tenderness in the left neck. Growing Staph aureus from aspiration. Afebrile. Has c/o itching of the left neck All Other Systems: Reviewed and Negative Objective Vital Signs Date Time Temp Pulse Resp B/P (MAP) Pulse Ox O2 Delivery O2 Flow Rate FiO2 12/22/16 16:00 Room Air 12/22/16 15:01 36.7 60 18 123/62 (82) 98 Room Air 12/22/16 08:10 Room Air 12/22/16 07:16 36.2 61 18 106/58 (74) 98 Room Air 12/21/16 23:45 Room Air 12/21/16 23:39 36.7 61 20 133/80 (97) 98 Room Air 12/21/16 19:50 Room Air Physical Exam General Appearance: no apparent distress, + thin Eyes: normal inspection, sclerae normal ENT: + pertinent finding ([place]) Neck: trachea midline, + pertinent finding (left side of neck with large fluctuent mass with overlying erythema, 2 focal areas of fluctuence now, one of which has small scab from needle aspiration yesterday, and another new area with white head exquisitely tender to the touch) Respiratory/Chest: lungs clear, normal breath sounds, no respiratory distress, no accessory muscle use Cardiovascular: regular rate, rhythm, no edema, no gallop, no murmur Abdomen: normal bowel sounds, non tender, soft Extremities: normal inspection, no pedal edema, no calf tenderness Neurologic/Psychiatric: alert, normal mood/affect Skin: warm/dry Laboratory Results Last 24 Hours Test 12/21/16 19:57 12/22/16 06:02 12/22/16 07:32 12/22/16 11:10 Bedside Glucose 195 mg/dl 70 mg/dl 178 mg/dl White Blood Count 4.98 K/uL Red Blood Count 3.90 M/uL Hemoglobin 10.8 g/dL Hematocrit 35.2 % Mean Corpuscular Volume 90.3 fL Mean Corpuscular Hemoglobin 27.7 pg Mean Corpuscular Hemoglobin Concent 30.7 g/dl Platelet Count 203 K/uL Mean Platelet Volume 10.2 fL Neutrophils (%) (Auto) 58.7 % Lymphocytes (%) (Auto) 31.3 % Monocytes (%) (Auto) 7.6 % Eosinophils (%) (Auto) 2.2 % Basophils (%) (Auto) 0.2 % Neutrophils # (Auto) 2.92 K/uL Lymphocytes # (Auto) 1.56 K/uL Monocytes # (Auto) 0.38 K/uL Eosinophils # (Auto) 0.11 K/uL Basophils # (Auto) 0.01 K/uL RDW Standard Deviation 48.0 fL RDW Coefficient of Variation 14.6 % Immature Granulocyte % (Auto) 0.0 % Immature Granulocyte # (Auto) 0.00 K/uL Erythrocyte Sedimentation Rate 52 mm/hr Sodium Level 140 mmol/L Potassium Level 3.8 mmol/L Chloride Level 107 mmol/L Carbon Dioxide Level 25 mmol/L Anion Gap 8.0 mmol/L Blood Urea Nitrogen 14 mg/dl Creatinine 1.10 mg/dl Est Creatinine Clear Calc Drug Dose 36.7 ml/min Estimated GFR () 53.8 Estimated GFR (Non- 46.4 BUN/Creatinine Ratio 12.5 Random Glucose 75 mg/dl Calcium Level 8.8 mg/dl Magnesium Level 2.2 mg/dl Test 12/22/16 16:26 Bedside Glucose 139 mg/dl Assessment and Plan Pt is a arnaud 81 yo female who presents to the ER with significant left sided neck pain, redness, and an enlarging lump. She first noticed it last week and went to her PCP office on 12/16/16. She was treated with Augmentin and has been taking it bid as prescribed. Afebrile at home, but when symptoms worsened, her son brought her in. She had previous lumps in her left parotid gland thought to be sialadenitis in the past. CT neck soft tissue in the ER showed Multiple ring-enhancing cystic masses within an enlarged and edematous left parotid gland. Given the clinical history , these likely represent multiple abscesses. A necrotic neoplasm could appear similar. She will be admitted for acute suppurative parotitis and neck cellulitis. No leukocytosis, no fever, no sepsis. -Discussed case with ENT Dr. Sierra again today-he performed needle aspiration of largest fluctuent area--> wound cx growing Staph aureus, sensitivity pending -Dr. Mariela wants to continue IV abx and hold off on further I&D unless becomes septic or has airway compromise -continue warm packs qid and biting lemon wedges to stimulate saliva production in case of sialolith (although pt now refusing heath) -continue Zosyn in addition to Vanco given that she is a diabetic and failed outpt Augmentin, need broader coverage to include for MRSA -With history of dry eyes, severe dry mouth, recurrent sialadenitis and parotid issues, question if she has Sjogren's syndrome-Will order Sjogren's antibodies and recommended referral as an outpatient to see rheumatology CAD s/p CABG/h/o AVR, PPM/Mod SERAFIN/hyperlipidemia-all stable, no active issues -continue home meds of aspirin, Toprol, and pravastatin Diabetes mellitus type 2-last hemoglobin A1c was 9.1% 10/2016--> 10.4% now - uncontrolled and she is confused about how she takes her insulin at home. Hyperglycemia from now improved -continue Lantus 10 units daily at bedtime -Appreciate CDE consultation--> will need to d/w son about assistance with insulin regimen -continue Sliding-scale insulin -Glucose checks GERD with Schatzki's rings requiring dilatation/Recent esophageal candidiasis- recently completed course of Diflucan, no current issues -Continue Protonix 40 mg by mouth twice a day Vitamin B12 deficiency-no current issues -Continue oral B12 supplementation Dry eye syndrome-ongoing -see workup as above for Sjogren's -Continue Restasis-will have to bring in from home History of hyperparathyroidism status post parathyroidectomy-no current issues, serum calcium here is normal Prophylaxis-heparin subcutaneous Disposition-DO NOT RESUSCITATE Expect at least 3-4 day stay
[2016-12-22] MEDS: INSULIN GLARGINE SOLOSTAR 100 UNITS/ML 3 ML PEN SC SCH (21:26)
[2016-12-22] MEDS ORDERED: VANCOMYCIN TROUGH SCH (23:30)
[2016-12-23] MEDS: VANCOMYCIN INJ 1,000 MG in SODIUM CHLORIDE 0.9% 250ML 250 ML IV SCH (00:18)
[2016-12-23 01:05] VITALS: BP 137/72; PULSE 61; TEMP 36.6; O2SAT 99
[2016-12-23] MEDS: PIPERACILL/TAZOBAC IV 3.375 GM in DEXTROSE 5% 100ML 100 ML IV SCH (02:12)
[2016-12-23] MEDS: HEPARIN SOD 5000 UNIT/0.5 ML CARP SQ SCH ×2 (05:57→18:47)
[2016-12-23 07:18] VITALS: BP 105/61; PULSE 64; TEMP 36.6; O2SAT 97
[2016-12-23 07:35] LABS: HEMATOCRIT 31.8 % (37-47); MEAN CELL VOLUME 89.1 fL (80-100); MEAN CORPUSCULAR HEMOGLOBIN 29.4 pg (25-34); PLATELET COUNT 173 K/uL (130-400); RED BLOOD COUNT 3.57 M/uL (4.2-5.4); WHITE BLOOD COUNT 5.15 K/uL (4.8-10.8)
[2016-12-23] MEDS: CYANOCOBALAMIN 500 MCG TAB (VIT B-12) PO SCH (07:45)
[2016-12-23] MEDS: CHOLECALCIFEROL 1000 INTER.UNIT TAB PO SCH (07:45)
[2016-12-23] MEDS: PANTOprazole SOD 40 MG TAB PO SCH ×2 (07:45→20:41)
[2016-12-23] MEDS: PRAVASTATIN SOD 10 MG TAB PO SCH (07:45)
[2016-12-23] MEDS: ASPIRIN 81 MG ECTAB PO SCH (07:45)
[2016-12-23] MEDS: METOPROLOL SUCC 25MG EXT REL TAB PO SCH (07:45)
[2016-12-23] MEDS: INSULIN ASPART 100 UNITS/ML 3 ML PEN SC SCH ×4 (07:51→20:40)
[2016-12-23 07:52] LABS: CREATININE 1.1 mg/dl (0.60-1.20)
[2016-12-23] MEDS: CEFAZOLIN IV 1,000 MG in DEXTROSE 5% 50ML 50 ML IV SCH ×2 (11:07→18:45)
[2016-12-23 14:48] VITALS: BP 103/55; PULSE 81; TEMP 36.8; O2SAT 97
[2016-12-23] MEDS ORDERED: VANCOMYCIN TROUGH SCH (15:30)
--- NOTE | 2016-12-23 18:49 | Hospitalist Progress Note ---
Hospitalist Progress Note Date of Service Dec 23, 2016. Subjective Pt evaluation today including: conversation w/ patient, conversation w/ data power consultant ([employer]) Pt feels better, biggest complaint is getting a larger gown as she is wearing a PEDS gown. Afebrile, eating food All Other Systems: Reviewed and Negative Objective Vital Signs Date Time Temp Pulse Resp B/P (MAP) Pulse Ox O2 Delivery O2 Flow Rate FiO2 12/23/16 15:41 Room Air 12/23/16 14:48 36.8 81 16 103/55 (71) 97 Room Air 12/23/16 08:00 Room Air 12/23/16 07:18 36.6 64 18 105/61 (76) 97 Room Air 12/23/16 01:05 36.6 61 18 137/72 (93) 99 Room Air 12/23/16 00:00 Room Air 12/22/16 20:00 Room Air Physical Exam General Appearance: no apparent distress, + thin Eyes: normal inspection, sclerae normal Neck: trachea midline, + pertinent finding (large fluctuent mass left neck is MUCH improved today and coming to a large head, about to open up on its own, the erythema previously down anterior neck is now resolved, still exquisitely tender) Respiratory/Chest: lungs clear, normal breath sounds, no respiratory distress, no accessory muscle use Cardiovascular: regular rate, rhythm, no edema, + systolic murmur (3/6 at [facility]) Abdomen: normal bowel sounds, non tender, soft Extremities: normal inspection, no pedal edema, no calf tenderness Neurologic/Psychiatric: alert, normal mood/affect Skin: warm/dry Laboratory Results Last 24 Hours Test 12/22/16 19:59 12/22/16 23:04 12/23/16 07:16 12/23/16 07:49 Bedside Glucose 167 mg/dl 148 mg/dl Vancomycin Level Trough 16.6 mcg/ml White Blood Count 5.15 K/uL Red Blood Count 3.57 M/uL Hemoglobin 10.5 g/dL Hematocrit 31.8 % Mean Corpuscular Volume 89.1 fL Mean Corpuscular Hemoglobin 29.4 pg Mean Corpuscular Hemoglobin Concent 33.0 g/dl RDW Standard Deviation 47.5 fL RDW Coefficient of Variation 14.5 % Platelet Count 173 K/uL Mean Platelet Volume 10.0 fL Creatinine 1.10 mg/dl Est Creatinine Clear Calc Drug Dose 36.7 ml/min Estimated GFR () 53.8 Estimated GFR (Non- 46.4 Test 12/23/16 11:22 12/23/16 15:10 12/23/16 16:31 Bedside Glucose 183 mg/dl 152 mg/dl 104 mg/dl Assessment and Plan Pt is a arnaud 81 yo female who presents to the ER with significant left sided neck pain, redness, and an enlarging lump. She first noticed it last week and went to her PCP office on 12/16/16. She was treated with Augmentin and has been taking it bid as prescribed. Afebrile at home, but when symptoms worsened, her son brought her in. She had previous lumps in her left parotid gland thought to be sialadenitis in the past. CT neck soft tissue in the ER showed Multiple ring-enhancing cystic masses within an enlarged and edematous left parotid gland. Given the clinical history , these likely represent multiple abscesses. A necrotic neoplasm could appear similar. She will be admitted for acute suppurative parotitis and neck cellulitis. No leukocytosis, no fever, no sepsis. 1) Acute suppurative parotitis and neck cellulitis- significantly improved today and finally coming to a head. Wound cx growing MSSA -Updated ENT Dr. Sierra again today-he performed needle aspiration 12/21 of largest fluctuent area -Dr. Sierra wants to continue IV abx and hold off on further I&D unless becomes septic or has airway compromise which is not likely at this point -continue warm packs qid -dc Zosyn and Vanco after 4 days -start Ancef and continue until starts draining and able to go home on po amoxicillin or keflex -With history of dry eyes, severe dry mouth, recurrent sialadenitis and parotid issues, question if she has Sjogren's syndrome- Sjogren's antibodies positive a thigh titer for SSA--> recommended referral as an outpatient to see rheumatology --> literature review reveals multiple symptomatic treatments, but recommend Vit D3 supplementation -will start Vit D 2000 units daily 2) CAD s/p CABG/h/o AVR, PPM/Mod SERAFIN/hyperlipidemia-all stable, no active issues -continue home meds of aspirin, Toprol, and pravastatin 3) Diabetes mellitus type 2-last hemoglobin A1c was 9.1% 10/2016--> 10.4% now - uncontrolled and she is confused about how she takes her insulin at home. Hyperglycemia from now improved -continue Lantus 10 units daily at bedtime -Appreciate CDE consultation--> will need to d/w son about assistance with insulin regimen -continue Sliding-scale insulin -Glucose checks 4) GERD with Schatzki's rings requiring dilatation/Recent esophageal candidiasis -recently completed course of Diflucan, no current issues -Continue Protonix 40 mg by mouth twice a day 5) Vitamin B12 deficiency-no current issues -Continue oral B12 supplementation 6) Dry eye syndrome-ongoing -see workup as above for Sjogren's -Continue Restasis-will have to bring in from home 7) History of hyperparathyroidism status post parathyroidectomy-no current issues, serum calcium here is normal Prophylaxis-heparin subcutaneous Disposition-DO NOT RESUSCITATE Could dc to home in 1-2 more days
[2016-12-23 20:12] VITALS: BP 138/64; PULSE 61; TEMP 36.5; O2SAT 99
[2016-12-23] MEDS: INSULIN GLARGINE SOLOSTAR 100 UNITS/ML 3 ML PEN SC SCH (20:42)
[2016-12-24] VITALS: O2SAT 99
[2016-12-24 00:09] VITALS: BP 133/66; PULSE 64; TEMP 36.6; O2SAT 94
[2016-12-24] MEDS: CEFAZOLIN IV 1,000 MG in DEXTROSE 5% 50ML 50 ML IV SCH ×3 (02:12→18:02)
[2016-12-24 05:20] VITALS: BP 138/62; PULSE 74; TEMP 36.6; O2SAT 96
[2016-12-24] MEDS: HEPARIN SOD 5000 UNIT/0.5 ML CARP SQ SCH ×2 (06:07→18:17)
[2016-12-24 07:11] VITALS: BP 111/53; PULSE 66; TEMP 36.5; O2SAT 100
[2016-12-24] MEDS: INSULIN ASPART 100 UNITS/ML 3 ML PEN SC SCH ×4 (08:14→20:47)
[2016-12-24] MEDS ORDERED: CHOLECALCIFEROL 1000 INTER.UNIT TAB PO SCH (09:00)
[2016-12-24] MEDS: PRAVASTATIN SOD 10 MG TAB PO SCH (09:06)
[2016-12-24] MEDS: CHOLECALCIFEROL 1000 INTER.UNIT TAB PO SCH (09:07)
[2016-12-24] MEDS: CYANOCOBALAMIN 500 MCG TAB (VIT B-12) PO SCH (09:07)
[2016-12-24] MEDS: ASPIRIN 81 MG ECTAB PO SCH (09:07)
[2016-12-24] MEDS: METOPROLOL SUCC 25MG EXT REL TAB PO SCH (09:08)
[2016-12-24] MEDS: PANTOprazole SOD 40 MG TAB PO SCH ×2 (09:08→20:41)
--- NOTE | 2016-12-24 18:58 | Hospitalist Progress Note ---
Hospitalist Progress Note Date of Service Dec 24, 2016. Subjective Pt evaluation today including: conversation w/ patient, conversation w/ customs consultant (ENT Dr. Sierra) Pt has no complaints except tenderness of neck with palpation. Afebrile All Other Systems: Reviewed and Negative Objective Vital Signs Date Time Temp Pulse Resp B/P (MAP) Pulse Ox O2 Delivery O2 Flow Rate FiO2 12/24/16 08:00 Room Air 12/24/16 07:11 36.5 66 16 111/53 (72) 100 Room Air 12/24/16 05:20 36.6 74 20 138/62 (87) 96 Room Air 12/24/16 00:09 36.6 64 18 133/66 (88) 94 Room Air 12/24/16 00:00 99 Room Air 12/23/16 20:12 36.5 61 20 138/64 (88) 99 Room Air Physical Exam General Appearance: no apparent distress, + thin Eyes: normal inspection, sclerae normal Neck: trachea midline, + pertinent finding (left lateral neck with 2 large fluctuent masses with surrounding erythema significantly improved) Respiratory/Chest: lungs clear, normal breath sounds, no respiratory distress, no accessory muscle use Cardiovascular: regular rate, rhythm, no edema, no murmur Abdomen: normal bowel sounds, non tender, soft Extremities: normal inspection, no pedal edema, no calf tenderness Neurologic/Psychiatric: alert Skin: warm/dry Laboratory Results Last 24 Hours Test 12/23/16 20:01 12/24/16 07:04 12/24/16 07:37 12/24/16 11:30 Bedside Glucose 152 mg/dl 72 mg/dl 67 mg/dl 111 mg/dl Test 12/24/16 15:57 Bedside Glucose 160 mg/dl Assessment and Plan Pt is a arnaud 81 yo female who presents to the ER with significant left sided neck pain, redness, and an enlarging lump. She first noticed it last week and went to her PCP office on 12/16/16. She was treated with Augmentin and has been taking it bid as prescribed. Afebrile at home, but when symptoms worsened, her son brought her in. She had previous lumps in her left parotid gland thought to be sialadenitis in the past. CT neck soft tissue in the ER showed Multiple ring-enhancing cystic masses within an enlarged and edematous left parotid gland. Given the clinical history , these likely represent multiple abscesses. A necrotic neoplasm could appear similar. She will be admitted for acute suppurative parotitis and neck cellulitis. No leukocytosis, no fever, no sepsis. 1) Acute suppurative parotitis and neck cellulitis- continues to improve and I performed simple unroofing of both abscesses with pt's permission after risks/ benefits/alternatives discussed. I expressed several MLs of purulent blood- tinged drainage from each one and pt tolerated well Wound cx growing MSSA -ENT Dr. Sierra performed needle aspiration 12/21 of largest fluctuant area for culture -continue IV abx and hold off on further I&D unless becomes septic or has airway compromise which is not likely at this point -continue warm packs qid -dc Zosyn and Vanco after 4 days -continue Ancef and can go home on po amoxicillin or keflex in 1-2 days -With history of dry eyes, severe dry mouth, recurrent sialadenitis and parotid issues, question if she has Sjogren's syndrome- Sjogren's antibodies positive a thigh titer for SSA--> recommended referral as an outpatient to see rheumatology --> literature review reveals multiple symptomatic treatments, but recommend Vit D3 supplementation -start Vit D 2000 units daily 2) CAD s/p CABG/h/o AVR, PPM/Mod SERAFIN/hyperlipidemia-all stable, no active issues -continue home meds of aspirin, Toprol, and pravastatin 3) Diabetes mellitus type 2-last hemoglobin A1c was 9.1% 10/2016--> 10.4% now - uncontrolled and she is confused about how she takes her insulin at home. Hyperglycemia from now improved and actually was hypoglycemic this AM -decrease Lantus to 6 units daily at bedtime -Appreciate CDE consultation -continue Sliding-scale insulin -Glucose checks 4) GERD with Schatzki's rings requiring dilatation/Recent esophageal candidiasis -recently completed course of Diflucan, no current issues -Continue Protonix 40 mg by mouth twice a day 5) Vitamin B12 deficiency-no current issues -Continue oral B12 supplementation 6) Dry eye syndrome-ongoing -see workup as above for Sjogren's -Continue Restasis-will have to bring in from home 7) History of hyperparathyroidism status post parathyroidectomy-no current issues, serum calcium here is normal Prophylaxis-heparin subcutaneous Disposition-DO NOT RESUSCITATE Could dc to home in 1-2 more days
[2016-12-24] MEDS ORDERED: INSULIN GLARGINE SOLOSTAR 100 UNITS/ML 3 ML PEN SC SCH (21:00)
[2016-12-24 23:58] VITALS: BP 95/60; PULSE 54; TEMP 36.8; O2SAT 98
[2016-12-25 00:04] VITALS: O2SAT 99
[2016-12-25] MEDS: CEFAZOLIN IV 1,000 MG in DEXTROSE 5% 50ML 50 ML IV SCH ×2 (02:06→10:49)
[2016-12-25] MEDS: HEPARIN SOD 5000 UNIT/0.5 ML CARP SQ SCH (05:43)
[2016-12-25 05:49] LABS: BASO % 0.3 %; BASO ABS # 0.02 K/uL (0-0.2); COMPLETE YES; EOS % 1.2 %; HEMATOCRIT 29.5 % (37-47); IG% 0.2 %; LYMPH % 19.8 %; LYMPH ABS # 1.14 K/uL (1.2-3.4); MEAN CELL VOLUME 89.7 fL (80-100); MEAN CORPUSCULAR HEMOGLOBIN 28.9 pg (25-34); MEAN CORPUSCULAR HGB CONC 32.2 g/dl (32-36); MEAN PLATELET VOLUME 10.2 fL (7.4-10.4); MONO % 9.2 %; NEUT % 69.3 %; PLATELET COUNT 201 K/uL (130-400); RED BLOOD COUNT 3.29 M/uL (4.2-5.4); WHITE BLOOD COUNT 5.77 K/uL (4.8-10.8)
[2016-12-25 06:17] LABS: BUN/CREATININE RATIO 15.4 (10-20); CALCIUM 8.3 mg/dl (8.5-10.1); MAGNESIUM 1.9 mg/dl (1.8-2.4); POTASSIUM 3.8 mmol/L (3.5-5.1)
[2016-12-25] MEDS: INSULIN ASPART 100 UNITS/ML 3 ML PEN SC SCH ×2 (06:30→11:00)
[2016-12-25 07:32] VITALS: BP 87/53; PULSE 60; TEMP 36.9; O2SAT 96
[2016-12-25] MEDS: CYANOCOBALAMIN 500 MCG TAB (VIT B-12) PO SCH (08:32)
[2016-12-25] MEDS: ASPIRIN 81 MG ECTAB PO SCH (08:32)
[2016-12-25] MEDS: METOPROLOL SUCC 25MG EXT REL TAB PO SCH (08:36)
[2016-12-25] MEDS: PANTOprazole SOD 40 MG TAB PO SCH (08:36)
[2016-12-25] MEDS: PRAVASTATIN SOD 10 MG TAB PO SCH (08:36)
[2016-12-25] MEDS: CHOLECALCIFEROL 1000 INTER.UNIT TAB PO SCH (08:37)
[2016-12-25 08:47] VITALS: BP 111/77; PULSE 60
--- NOTE | 2016-12-25 10:34 | Progress Note ---
Subjective Date of Service: Dec 25, 2016. She described that she was feeling better, and that she was eager to go home. Subjective Pt evaluation today including: conversation w/ patient Problem List Medical Problems: (1) Cellulitis of neck Status: Acute (2) Elevated troponin Status: Acute (3) Generalized weakness Status: Acute (4) Influenza Status: Acute (5) Intermittent chest pain Status: Acute (6) Neck abscess Status: Acute Objective Vital Signs Date Time Temp Pulse Resp B/P (MAP) Pulse Ox O2 Delivery O2 Flow Rate FiO2 12/25/16 08:47 60 111/77 (88) 12/25/16 08:00 Room Air 12/25/16 07:32 36.9 60 20 87/53 (64) 96 12/25/16 00:04 99 Room Air 12/24/16 23:58 36.8 54 20 95/60 (72) 98 Room Air 12/24/16 16:20 Room Air The erythema in her left neck has almost completely resolved. Her mass was palpated deep to a dressing placed after her aspiration of pus from the left neck done last night. The mass is 90% reduced from when I last saw her on 12/21/16. Laboratory Results Last 24 Hours Test 12/24/16 11:30 12/24/16 15:57 12/24/16 20:05 12/25/16 05:12 Bedside Glucose 111 mg/dl 160 mg/dl 259 mg/dl White Blood Count 5.77 K/uL Red Blood Count 3.29 M/uL Hemoglobin 9.5 g/dL Hematocrit 29.5 % Mean Corpuscular Volume 89.7 fL Mean Corpuscular Hemoglobin 28.9 pg Mean Corpuscular Hemoglobin Concent 32.2 g/dl Platelet Count 201 K/uL Mean Platelet Volume 10.2 fL Neutrophils (%) (Auto) 69.3 % Lymphocytes (%) (Auto) 19.8 % Monocytes (%) (Auto) 9.2 % Eosinophils (%) (Auto) 1.2 % Basophils (%) (Auto) 0.3 % Neutrophils # (Auto) 4.00 K/uL Lymphocytes # (Auto) 1.14 K/uL Monocytes # (Auto) 0.53 K/uL Eosinophils # (Auto) 0.07 K/uL Basophils # (Auto) 0.02 K/uL RDW Standard Deviation 48.1 fL RDW Coefficient of Variation 14.6 % Immature Granulocyte % (Auto) 0.2 % Immature Granulocyte # (Auto) 0.01 K/uL Sodium Level 137 mmol/L Potassium Level 3.8 mmol/L Chloride Level 106 mmol/L Carbon Dioxide Level 26 mmol/L Anion Gap 5.0 mmol/L Blood Urea Nitrogen 15 mg/dl Creatinine 1.00 mg/dl Est Creatinine Clear Calc Drug Dose 40.4 ml/min Estimated GFR () 60.3 Estimated GFR (Non- 52.1 BUN/Creatinine Ratio 15.4 Random Glucose 72 mg/dl Calcium Level 8.3 mg/dl Magnesium Level 1.9 mg/dl Test 12/25/16 07:19 Bedside Glucose 77 mg/dl Assessment and Plan Left parotid abscess which has responded nicely to aspiration x 2 (12/21 & 12/24) She may be discharged to home either today or tomorrow on p.o. antibiotics x 7 more days along with BID sucking on a lemon. She may follow-up with her PMD
[2016-12-25] MEDS ORDERED: INSU1INJ SC (13:28)
[2016-12-25] MEDS ORDERED: AMOX875T PO (13:28)
--- NOTE | 2016-12-25 13:33 | Discharge Instructions ---
Discharge Instructions Date of Service Dec 25, 2016. Admission Reason for Admission: Acute Parotitis,Cellulitis And Abscess Of Neck Discharge Discharge Diagnosis / Problem: Acute parotitis, Cellulitis and abscess of the neck Discharge Goals Goal(s): Improve disease control, Diagnostic testing, Therapeutic intervention Activity Recommendations Activity Limitations: resume your previous activity Shower/Bathe: no limitations . Instructions / Follow-Up Instructions / Follow-Up You were admitted with an infection of your parotid gland and neck. You were treated with IV antibiotics and surgical drainage of the abscess. It is important to keep the wound clean by using gentle scrubbing with soap and water , pat it dry after bathing, then apply sterile gauze to cover and tape to your neck. Please change the dressings 1-2 times daily or when the gauze is soaked through with pus. Please finish out another 7 days of Augmentin 1 tab twice a day. You should also bite into a lemon wedge 2-3 times per day to help produce saliva to prevent this from happening again. You may have a disorder called Sjogren's Syndrome. Please discussthis with your family doctor and you may need a referral to see a specialist called a Digital Experience Manager. Follow up with your family doctor within 1 week. Your blood sugar is not well controlled. This may be because you are not giving yourself insulin. Please give yourself 5 units every morning of your Humulin 70/ 30 insulin with breakfast, and your family doctor can make further changes after that. Current Hospital Diet Patient's current hospital diet: Diabetes Type 2 Diet Discharge Diet Recommended Diet: Diabetes Type 2 Diet Procedures Procedures Performed: Needle aspiration and drainage of neck abscess CT neck soft tissue Pending Studies Studies pending at discharge: no Laboratory Results Hemoglobin A1c Test 12/21/16 06:20 Range/Units Estimated Average Glucose 252 mg/dl Hemoglobin A1c 10.4 H 4.5-5.6 % Lipid Panel Last 24 Hours Test 12/24/16 15:57 12/24/16 20:05 12/25/16 05:12 12/25/16 07:19 Bedside Glucose 160 mg/dl 259 mg/dl 77 mg/dl White Blood Count 5.77 K/uL Red Blood Count 3.29 M/uL Hemoglobin 9.5 g/dL Hematocrit 29.5 % Mean Corpuscular Volume 89.7 fL Mean Corpuscular Hemoglobin 28.9 pg Mean Corpuscular Hemoglobin Concent 32.2 g/dl Platelet Count 201 K/uL Mean Platelet Volume 10.2 fL Neutrophils (%) (Auto) 69.3 % Lymphocytes (%) (Auto) 19.8 % Monocytes (%) (Auto) 9.2 % Eosinophils (%) (Auto) 1.2 % Basophils (%) (Auto) 0.3 % Neutrophils # (Auto) 4.00 K/uL Lymphocytes # (Auto) 1.14 K/uL Monocytes # (Auto) 0.53 K/uL Eosinophils # (Auto) 0.07 K/uL Basophils # (Auto) 0.02 K/uL RDW Standard Deviation 48.1 fL RDW Coefficient of Variation 14.6 % Immature Granulocyte % (Auto) 0.2 % Immature Granulocyte # (Auto) 0.01 K/uL Sodium Level 137 mmol/L Potassium Level 3.8 mmol/L Chloride Level 106 mmol/L Carbon Dioxide Level 26 mmol/L Anion Gap 5.0 mmol/L Blood Urea Nitrogen 15 mg/dl Creatinine 1.00 mg/dl Est Creatinine Clear Calc Drug Dose 40.4 ml/min Estimated GFR () 60.3 Estimated GFR (Non- 52.1 BUN/Creatinine Ratio 15.4 Random Glucose 72 mg/dl Calcium Level 8.3 mg/dl Magnesium Level 1.9 mg/dl Test 12/25/16 10:58 Bedside Glucose 91 mg/dl Test 11/02/16 09:14 Range/Units Triglycerides Level 146 0-150 mg/dl Cholesterol Level 185 0-200 mg/dl HDL Cholesterol 38 mg/dl Cholesterol/HDL Ratio 4.9 LDL Cholesterol, Calculated 118 mg/dl Medical Emergencies . Who to Call and When: Medical Emergencies: If at any time you feel your situation is an emergency, please call 911 immediately. . Non-Emergent Contact Non-Emergency issues call your: Primary Care Provider Call Non-Emergent contact if: you have a fever, temperature is above 100.5, your pain is not controlled, your pain is worsening, your pain is unusual for you, your pain is concerning you, wound has increased redness, wound has increased pain, you have any medication questions . . "Provider Documentation" section prepared by Cassandra Harding. . VTE Core Measure Inpt VTE Proph given/why not?: Unfractionated heparin SQ
--- NOTE | 2016-12-25 13:45 | Discharge Summary ---
Discharge Summary Date of Service Dec 25, 2016. Discharge Summary Admission Date: Dec 20, 2016 at 19:21 Discharge Date: Dec 25, 2016 Discharge Disposition: Home with services Principal Diagnosis: Acute suppurative parotitis, Neck abscess and cellulitis Problems/Secondary Diagnoses: Pt is a arnaud 81 yo female who presents to the ER with significant left sided neck pain, redness, and an enlarging lump. She first noticed it last week and went to her PCP office on 12/16/16. She was treated with Augmentin and has been taking it bid as prescribed. Afebrile at home, but when symptoms worsened, her son brought her in. She had previous lumps in her left parotid gland thought to be sialadenitis in the past. CT neck soft tissue in the ER showed Multiple ring-enhancing cystic masses within an enlarged and edematous left parotid gland. Given the clinical history , these likely represent multiple abscesses. A necrotic neoplasm could appear similar. She will be admitted for acute suppurative parotitis and neck cellulitis. No leukocytosis, no fever, no sepsis. 1) Acute suppurative parotitis and neck cellulitis- continues to improve and I performed simple unroofing of both abscesses with pt's permission after risks/ benefits/alternatives discussed. I expressed several MLs of purulent blood- tinged drainage from each one and pt tolerated well Wound cx growing MSSA -ENT Dr. Sierra performed needle aspiration 12/21 of largest fluctuant area for culture -continue IV abx and hold off on further I&D unless becomes septic or has airway compromise which is not likely at this point -continue warm packs qid -dc Zosyn and Vanco after 4 days -continue Ancef and can go home on po amoxicillin or keflex in 1-2 days -With history of dry eyes, severe dry mouth, recurrent sialadenitis and parotid issues, question if she has Sjogren's syndrome- Sjogren's antibodies positive a thigh titer for SSA--> recommended referral as an outpatient to see rheumatology --> literature review reveals multiple symptomatic treatments, but recommend Vit D3 supplementation -start Vit D 2000 units daily 2) CAD s/p CABG/h/o AVR, PPM/Mod SERAFIN/hyperlipidemia-all stable, no active issues -continue home meds of aspirin, Toprol, and pravastatin 3) Diabetes mellitus type 2-last hemoglobin A1c was 9.1% 10/2016--> 10.4% now - uncontrolled and she is confused about how she takes her insulin at home. Hyperglycemia from now improved and actually was hypoglycemic this AM -decrease Lantus to 6 units daily at bedtime -Appreciate CDE consultation -continue Sliding-scale insulin -Glucose checks 4) GERD with Schatzki's rings requiring dilatation/Recent esophageal candidiasis -recently completed course of Diflucan, no current issues -Continue Protonix 40 mg by mouth twice a day 5) Vitamin B12 deficiency-no current issues -Continue oral B12 supplementation 6) Dry eye syndrome-ongoing -see workup as above for Sjogren's -Continue Restasis-will have to bring in from home 7) History of hyperparathyroidism status post parathyroidectomy-no current issues, serum calcium here is normal Prophylaxis-heparin subcutaneous Disposition-DO NOT RESUSCITATE Could dc to home in 1-2 more days Immunizations: Have You Had Influenza Vaccine: No History of Tetanus Vaccine?: Unknown History of Pneumococcal: No History of Hepatitis B Vaccine: Unknown Procedures: Needle aspiration and drainage of neck abscess CT Neck soft tissue Consultations: ENT Medication Reconciliation New Medications: Amoxicillin & Pot Clavulanate (Augmentin 875-125 mg) 1 Tab Tab 875 MG PO BID, #14 TAB Changed Medications: Insulin Isophan/Regular (Humulin 70/30) Susp 5 UNITS SC QAM for 30 Days (Changed from: 7-10 UNITS) Continued Medications: Aspirin (Aspirin Chewable) 81 Mg Chew 81 MG PO QAM Cholecalciferol (Vitamin D3) 2,000 Unit Cap 1 CAP PO QAM, CAP 3 Refills Cyanocobalamin (Vitamin B12) 1,000 Mcg Tab 1 TAB PO QAM Metoprolol Succinate (Toprol Xl) 25 Mg Tabcr 25 MG PO QAM, #30 TAB Omeprazole (Prilosec) 20 Mg Capcr 20 MG PO BID, CAP Pravastatin Sod (Pravastatin Sodium) 10 Mg Tab 1 TAB PO QAM Discontinued Medications: Amoxicillin & Pot Clavulanate (Amoxicillin/Clavulanate P) 1 Tab Tab 1 TAB PO Q12, #20 Referrals At Discharge Follow up Referrals: Physician Referral - Within 1 Week with Agapito Lynne M.D. Discharge Exam Doing very well. Afebrile. Neck abscess continues to drain on dressing after unroofed with needle yesterday both sites and is markedly improved now. Physical Exam General Appearance: no apparent distress, + thin Eyes: normal inspection, sclerae normal Neck: trachea midline, + pertinent finding (left lateral neck with 2 significantly reduced in size fluctuant masses with markedly improved surrounding erythema) Respiratory/Chest: lungs clear, normal breath sounds, no respiratory distress, no accessory muscle use Cardiovascular: regular rate, rhythm, no edema, no murmur Abdomen: normal bowel sounds, non tender, soft Extremities: normal inspection, no pedal edema, no calf tenderness Neurologic/Psychiatric: alert Skin: warm/dry Review of Systems: Constitutional: No fever, No chills Eyes: No problem reported ENT: No problem reported Respiratory: No problem reported Cardiovascular: No problem reported Abdomen: No problem reported Musculoskeletal: No problem reported Genitourinary - Female: No problem reported Neurologic: + memory loss Psychiatric: No problem reported Endocrine: No problem reported Hematologic / Lymphatic: No problem reported Integumentary: No problem reported Hospital Course Pt is a arnaud 81 yo female who presents to the ER with significant left sided neck pain, redness, and an enlarging lump. She first noticed it last week and went to her PCP office on 12/16/16. She was treated with Augmentin and has been taking it bid as prescribed. Afebrile at home, but when symptoms worsened, her son brought her in. She had previous lumps in her left parotid gland thought to be sialadenitis in the past. CT neck soft tissue in the ER showed Multiple ring-enhancing cystic masses within an enlarged and edematous left parotid gland. Given the clinical history , these likely represent multiple abscesses. A necrotic neoplasm could appear similar. She will be admitted for acute suppurative parotitis and neck cellulitis. No leukocytosis, no fever, no sepsis. 1) Acute suppurative parotitis and neck cellulitis- markedly improved now after IV antibiotics for several days followed by unroofing of both abscesses with pt' s permission after risks/benefits/alternatives discussed. I expressed several mLs of purulent blood-tinged drainage from each one and pt tolerated well on Wound cx growing MSSA -ENT Dr. Sierra performed needle aspiration 12/21 of largest fluctuant area for culture -was on Ancef IV and now will switch back to po Augmentin upon discharge for 7 more days -continue dressing changes 1-2 x daily at home and will arrange home RN to visit -continue biting into lemon wedge bid-tid -With history of dry eyes, severe dry mouth, recurrent sialadenitis and parotid issues, question if she has Sjogren's syndrome- Sjogren's antibodies positive a thigh titer for SSA/Ro antibody--> recommended referral as an outpatient to see rheumatology--> literature review reveals multiple symptomatic treatments, but recommend Vit D3 supplementation -continue Vit D 2000 units daily 2) CAD s/p CABG/h/o AVR, PPM/Mod SERAFIN/hyperlipidemia-all stable, no active issues -continue home meds of aspirin, Toprol, and pravastatin 3) Diabetes mellitus type 2-last hemoglobin A1c was 9.1% 10/2016--> 10.4% now - uncontrolled and she is confused about how she takes her insulin at home. Hyperglycemia from now improved and actually was hypoglycemic again this AM with nighttime Lantus use -discussed insulin regimen with pt and she does not understand how/when to give herself insulin-she has been withholding it most days because her AM glucose tends to run low. JHere, her AM glucose has been low and then high into the 200s during the day. -Advised givein her home Humulin 70/30 with breaskfast but reduce dose to 5 units qAM and to be consistent with it--son at bedside for discussion and will help assist with this at home -Appreciate CDE consultation 4) GERD with Schatzki's rings requiring dilatation/Recent esophageal candidiasis -recently completed course of Diflucan, no current issues -Continue Protonix 40 mg by mouth twice a day 5) Vitamin B12 deficiency-no current issues -Continue oral B12 supplementation 6) Dry eye syndrome-ongoing -see workup as above for Sjogren's -Continue Restasis 7) History of hyperparathyroidism status post parathyroidectomy-no current issues, serum calcium here is normal Prophylaxis-heparin subcutaneous Disposition-DO NOT RESUSCITATE Discharge to home with Home Health today Total Time Spent: Greater than 30 minutes This includes examination of the patient, discharge planning, medication reconciliation, and communication with other providers. Discharge Instructions Please refer to the electronic Patient Visit Report (Discharge Instructions) for additional information. Follow-Up PCP within 1 week Additional Copies To Agapito Lynne M.D.
[2016-12-25 14:03] VITALS: BP 111/77; PULSE 60; TEMP 36.9; O2SAT 96
[2016-12-25] MEDS ORDERED: INSULIN GLARGINE SOLOSTAR 100 UNITS/ML 3 ML PEN SC SCH (21:00)
== END 2016-12-25 14:54 | disposition home health service (06) | DRG 155 ==
LOC: C.EDB 14:35 → C.MS2W 19:21 → ENRESERV 19:31
PROVIDERS: ADMIT Family Medicine; ATTEND Family Medicine
PROC: 0J943ZX Drainage of Right Neck Subcutaneous Tissue and Fascia, Percutaneous Approach, Diagnostic (ICD-10-PCS; principal; 2016-12-21)
DX: K11.21 Acute sialoadenitis (principal); L03.221 Cellulitis of neck; L02.11 Cutaneous abscess of neck; B95.61 Methicillin susceptible Staphylococcus aureus infection as the cause of diseases classified elsewhere; M35.00 Sjogren syndrome, unspecified; H04.129 Dry eye syndrome of unspecified lacrimal gland; E11.65 Type 2 diabetes mellitus with hyperglycemia; E78.5 Hyperlipidemia, unspecified; I25.10 Atherosclerotic heart disease of native coronary artery without angina pectoris; K21.9 Gastro-esophageal reflux disease without esophagitis; E53.8 Deficiency of other specified B group vitamins; Z51.81 Encounter for therapeutic drug level monitoring; Z79.899 Other long term (current) drug therapy; Z79.4 Long term (current) use of insulin; Z79.82 Long term (current) use of aspirin; Z66 Do not resuscitate; Z95.0 Presence of cardiac pacemaker; Z95.1 Presence of aortocoronary bypass graft; Z95.2 Presence of prosthetic heart valve

== ENCOUNTER 2017-01-15 12:33 | Inpatient (IN) | payer OTHER ==
[2017-01-15] VITALS (8 sets, daily range): BP systolic 88–116; BP diastolic 40–67; PULSE 61–89; TEMP 36.4–36.8; O2SAT 97–100; Ht 170.2 cm; Wt 50.1 kg
[~2017-01-15] VITALS: Ht 170.2 cm; Wt 50.1 kg
[~2017-01-15 12:33] MED LIST changes: -CALC500C70 PO
[2017-01-15] MEDS ORDERED: MoRPHine SULFATE 10 MG/ML CARP/VIAL IV PRN (14:00)
--- NOTE | 2017-01-15 14:05 | EMERGENCY ROOM VISIT NOTE ---
History Report prepared by Gricelda: Roc Gill Under the Supervision of: Dr. Bubba Patrick M.D. First contact with patient: 13:39 Chief Complaint: HIP PAIN Stated Complaint: HIP PAIN History of Present Illness The patient is an 81 year old female who presents to the Emergency Room with complaints of constant right hip pain beginning this morning. The patient's family states that she was found on the floor, and they believe she fell. They report the patient came in via ambulance. The family notes she had a CABGx4 and required a blood transfusion several years ago. The patient states that she did not fall; she slept on the floor because she was in a warm pile of blankets. HPI is limited secondary to dementia. Source of History: family History Limited By: dementia Review of Systems ROS is limited secondary to dementia. Past Medical & Surgical Medical Problems: (1) Acute parotitis (2) Acute suppurative parotitis (3) Cellulitis and abscess of neck (4) Diabetes (5) Hyperlipidemia (6) Influenza A (7) Pacemaker Family History Patient reports no known family medical history. Social History Smoking Status: Never Smoker Drug Use: none Marital Status: Occupation Status: retired Current/Historical Medications Scheduled Aspirin (Aspirin Chewable), 81 MG PO QAM Cholecalciferol (Vitamin D3), 1 CAP PO QAM Cyanocobalamin (Vitamin B12), 1 TAB PO QAM Insulin Isophan/Regular (Humulin 70/30), 5 UNITS SC QAM Metoprolol Succinate (Toprol Xl), 25 MG PO QAM Omeprazole (Prilosec), 20 MG PO BID Pravastatin Sod (Pravastatin Sodium), 1 TAB PO QAM Allergies Coded Allergies: Rosuvastatin (Verified Adverse Reaction, Unknown, UPSET STOMACH, 12/20/16) Simvastatin (Verified Adverse Reaction, Unknown, UPSET STOMACH, 12/20/16) Physical Exam Vital Signs Date Time Temp Pulse Resp B/P (MAP) Pulse Ox O2 Delivery O2 Flow Rate FiO2 01/15/17 16:30 65 17 98/47 100 01/15/17 16:00 62 17 01/15/17 15:30 64 19 100 01/15/17 15:00 61 17 100 01/15/17 14:17 61 20 123/58 94 Room Air 01/15/17 14:03 61 01/15/17 12:40 36.4 60 22 125/36 97 Room Air Physical Exam GENERAL: Patient awake, alert, oriented x 3, and somewhat confused. Patient follows commands. Patient does not appear toxic. Patient is adequately hydrated and well-nourished. SKIN: No erythema, pallor, cyanosis or rash HEENT: Normal head, pupils equal, reactive to light and accommodation. Ears normal. Oral cavity and posterior pharynx appear normal. Neck: Without adenopathy, no neck vein distention. LUNGS: Clear to auscultation. No wheezes, no rales, no rhonchi. HEART: Regular rate. No murmurs. No gallops. No rubs CHEST: Left upper chest pacemaker. ABDOMEN: Soft and non-tender. EXTREMITIES: No signs of trauma. No pedal or pretibial edema. No calf or thigh tenderness. Tenderness to the pelvis over the right greater trochanter. Right hip is held inflexion for shortened and externally rotated. Motor and sensory function intact distally. Left hip full ROM and neurovascularly intact. NEUROLOGIC: Cranial nerves II-XII within normal limits. No gross motor sensory function deficits. Medical Decision & Procedures ER Provider Diagnostic Interpretation: X ray results are stated below per my interpretation and the radiologist's interpretation. RIGHT PELVIS/UNILATERAL HIP 2-3VIEWS CLINICAL HISTORY: fall Right trauma. Pain. COMPARISON: None. DISCUSSION: Intertrochanteric fracture right hip. Mild superior migration femoral shaft. No evidence for dislocation. There is no evidence for soft tissue swelling. IMPRESSION: Angled intertrochanteric fracture right hip. Mild superior migration right femoral shaft. No evidence for dislocation The above report was generated using voice recognition software. It may contain grammatical, syntax or spelling errors. Electronically signed by: Mat Abreu M.D. 01/15/2017 2:40 PM Dictated Date/Time: 01/15/2017 2:39 PM CHEST ONE VIEW PORTABLE CLINICAL HISTORY: hip fx trauma COMPARISON STUDY: 05/18/2016 FINDINGS: Moderate emphysematous change. Lungs are clear. Calcification of the mitral annulus. Prior median sternotomy. IMPRESSION: Emphysematous change. No acute process. The above report was generated using voice recognition software. It may contain grammatical, syntax or spelling errors. Electronically signed by: Mat Abreu M.D. 01/15/2017 2:39 PM Dictated Date/Time: 01/15/2017 2:38 PM Laboratory Results 01/15/17 15:19 Red Blood Count 2.90, Mean Corpuscular Volume 90.3, Mean Corpuscular Hemoglobin 30.0, Mean Corpuscular Hemoglobin Concent 33.2, Mean Platelet Volume 9.9, Neutrophils (%) (Auto) 78.8, Lymphocytes (%) (Auto) 13.2, Monocytes (%) (Auto) 7.4, Eosinophils (%) (Auto) 0.0, Basophils (%) (Auto) 0.1, Neutrophils # (Auto) 6.45, Lymphocytes # (Auto) 1.08, Monocytes # (Auto) 0.61, Eosinophils # (Auto) 0.00, Basophils # (Auto) 0.01 01/15/17 14:02 Test 01/15/17 14:02 01/15/17 14:10 01/15/17 15:19 Prothrombin Time 11.8 SECONDS (9.0-12.0) Prothromb Time International Ratio 1.1 (0.9-1.1) Activated Partial Thromboplast Time 22.9 SECONDS (21.0-31.0) Partial Thromboplastin Ratio 0.9 Anion Gap 7.0 mmol/L (3-11) Est Creatinine Clear Calc Drug Dose 21.1 ml/min Estimated GFR () 48.4 Estimated GFR (Non- 41.8 BUN/Creatinine Ratio 17.7 (10-20) Calcium Level 8.8 mg/dl (8.5-10.1) Iron Level 33 mcg/dl (35-150) Total Iron Binding Capacity 218 mcg/dl (250-450) Urine Color DK YELLOW Urine Appearance CLEAR (CLEAR) Urine pH 5.0 (4.5-7.5) Urine Specific [place] 1.023 (1.000-1.030) Urine Protein NEG (NEG) Urine Glucose (UA) 1+ (NEG) Urine Ketones TRACE (NEG) Urine Occult Blood NEG (NEG) Urine Nitrite NEG (NEG) Urine Bilirubin NEG (NEG) Urine Urobilinogen NEG (NEG) Urine Leukocyte Esterase NEG (NEG) White Blood Count 8.19 K/uL (4.8-10.8) Red Blood Count 2.90 M/uL (4.2-5.4) Hemoglobin 8.7 g/dL (12.0-16.0) Hematocrit 26.2 % (37-47) Mean Corpuscular Volume 90.3 fL (80-100) Mean Corpuscular Hemoglobin 30.0 pg (25-34) Mean Corpuscular Hemoglobin Concent 33.2 g/dl (32-36) Platelet Count 222 K/uL (130-400) Mean Platelet Volume 9.9 fL (7.4-10.4) Neutrophils (%) (Auto) 78.8 % Lymphocytes (%) (Auto) 13.2 % Monocytes (%) (Auto) 7.4 % Eosinophils (%) (Auto) 0.0 % Basophils (%) (Auto) 0.1 % Neutrophils # (Auto) 6.45 K/uL (1.4-6.5) Lymphocytes # (Auto) 1.08 K/uL (1.2-3.4) Monocytes # (Auto) 0.61 K/uL (0.11-0.59) Eosinophils # (Auto) 0.00 K/uL (0-0.5) Basophils # (Auto) 0.01 K/uL (0-0.2) RDW Standard Deviation 51.6 fL (36.4-46.3) RDW Coefficient of Variation 15.6 % (11.5-14.5) Immature Granulocyte % (Auto) 0.5 % Immature Granulocyte # (Auto) 0.04 K/uL (0.00-0.02) Red Blood Cell Morphology Unremarkable Laboratory results as stated above per my review. ED Course 1344: Past medical records reviewed. The patient was evaluated in room C12B. A complete history and physical examination was performed. 1400: Ordered Morphine Sulfate 2mg IV 1527: Upon reevaluation, the patient is resting. I discussed today's findings with her and her family. They verbalized agreement of the treatment plan. 1544: I discussed the patient's case with Dr. Castro, Orthopedics. The patient will be evaluated for further treatment. 1551: I discussed the patient's case with Dr. Santillan, [facility] Hospitalist. The patient will be evaluated for further management and care. Medical Decision I considered multiple diagnoses including: hip fracture, hip dislocation, fall. The patient apparently fell last night and was found on the floor by her son this morning. The patient states that she just slept on the floor. She does not complain of significant pain until I move her right leg. Patient is obvious tenderness over that right hip. X-ray confirms diagnosis of fractured hip. Labs, EKG and chest x-ray obtained to prepare the patient for surgical intervention. I discussed care with the family, orthopedist and hospitalist. Medication Reconcilliation Current Medication List: was personally reviewed by me Blood Pressure Screening Patient's blood pressure: Normal blood pressure Blood pressure disposition: Did not require urgent referral Consults Time Called: 1528 Consulting Physician: Dr. Castro, Orthopedics Returned Call: [phone] I discussed the patient's case with Dr. Castro, Orthopedics. The patient will be evaluated for further treatment. Additional Consults: Time Called: 1545 Consulted Physician: Dr. Santillan, [facility] Hospitalist Returned Call: [phone] Additional Comments: I discussed the patient's case with Dr. Santillan, [facility] Hospitalist. The patient will be evaluated for further management and care. Impression Primary Impression: Intertrochanteric fracture of right hip Additional Impression: Anemia Scribe Attestation The scribe's documentation has been prepared under my direction and personally reviewed by me in its entirety. I confirm that the note above accurately reflects all work, treatment, procedures, and medical decision making performed by me. Departure Information Dispostion Being Evaluated By Hospitalist Referrals Agapito Lynne M.D. (PCP) Patient Instructions My [facility] Problem Qualifiers
[2017-01-15 14:29] LABS: URINE APPEARANCE CLEAR (CLEAR); URINE COLOR DK YELLOW; URINE NITRITE NEG (NEG); URINE SPECIFIC GRAVITY 1.023 (1.000-1.030); UROBILINOGEN NEG (NEG); ZZURINE CULT IF INDIC CATH NO
[2017-01-15 14:30] LABS: INR 1.1 (0.9-1.1); PARTIAL THROMBOPLASTIN RATIO 0.9; PROTHROMBIN TIME (PATIENT) 11.8 SECONDS (9.0-12.0)
[2017-01-15 14:35] LABS: BUN/CREATININE RATIO 17.7 (10-20); CREATININE 1.2 mg/dl (0.60-1.20); POTASSIUM 4.5 mmol/L (3.5-5.1)
[2017-01-15 14:36] LABS: CALCIUM 8.8 mg/dl (8.5-10.1)
--- NOTE | 2017-01-15 14:40 | DIAGNOSTIC IMAGING REPORT ---
CHEST ONE VIEW PORTABLE CLINICAL HISTORY: hip fx trauma COMPARISON STUDY: 05/18/2016 FINDINGS: Moderate emphysematous change. Lungs are clear. Calcification of the mitral annulus. Prior median sternotomy. IMPRESSION: Emphysematous change. No acute process. The above report was generated using voice recognition software. It may contain grammatical, syntax or spelling errors. Electronically signed by: Mat Abreu M.D. 01/15/2017 2:39 PM Dictated Date/Time: 01/15/2017 2:38 PM
--- NOTE | 2017-01-15 14:41 | DIAGNOSTIC IMAGING REPORT ---
RIGHT PELVIS/UNILATERAL HIP 2-3VIEWS CLINICAL HISTORY: fall Right trauma. Pain. COMPARISON: None. DISCUSSION: Intertrochanteric fracture right hip. Mild superior migration femoral shaft. No evidence for dislocation. There is no evidence for soft tissue swelling. IMPRESSION: Angled intertrochanteric fracture right hip. Mild superior migration right femoral shaft. No evidence for dislocation The above report was generated using voice recognition software. It may contain grammatical, syntax or spelling errors. Electronically signed by: Mat Abreu M.D. 01/15/2017 2:40 PM Dictated Date/Time: 01/15/2017 2:39 PM
[2017-01-15 14:51] LABS: MANUAL MICROSCOPIC REQUIRED? NO; REVIEW REQ? NO; URINE BILIRUBIN NEG (NEG)
[2017-01-15 15:27] LABS: BASO % 0.1 %; BASO ABS # 0.01 K/uL (0-0.2); HEMATOCRIT 26.2 % (37-47); IG% 0.5 %; LYMPH % 13.2 %; LYMPH ABS # 1.08 K/uL (1.2-3.4); MEAN CELL VOLUME 90.3 fL (80-100); MEAN CORPUSCULAR HGB CONC 33.2 g/dl (32-36); MEAN PLATELET VOLUME 9.9 fL (7.4-10.4); MONO % 7.4 %; NEUT % 78.8 %; PLATELET COUNT 222 K/uL (130-400); WHITE BLOOD COUNT 8.19 K/uL (4.8-10.8)
[2017-01-15 15:49] LABS: COMPLETE YES
[2017-01-15] MEDS ORDERED: BISACODYL 10 MG SUPP PR PRN (18:30)
[2017-01-15] MEDS ORDERED: MAGNESIUM HYDROXIDE SUSP 30 ML UDC PO PRN (18:30)
[2017-01-15] MEDS ORDERED: SOD PHOSPHATE/SOD BIPHOSPHATE ENEMA 132 ML BTL PR PRN (18:30)
[2017-01-15] MEDS ORDERED: POLYETHYLENE (MIRALAX) 17 GM PACK PO PRN (18:30)
[2017-01-15] MEDS ORDERED: ACETAMINOPHEN 325 MG TAB PO PRN (18:30)
[2017-01-15] MEDS ORDERED: MoRPHine SULFATE 2 MG/ML CARP IV PRN (18:30)
[2017-01-15] MEDS ORDERED: ONDANSETRON INJ 2 MG/ML 2 ML VIAL IV PRN (18:30)
[2017-01-15] MEDS ORDERED: NALOXONE HCL 0.4 MG/1 ML VIAL/CARP IV PRN (18:30)
[2017-01-15] MEDS ORDERED: MoRPHine SULFATE 4 MG/ML 1 ML CARP\\VIAL IV PRN (18:30)
[2017-01-15] MEDS ORDERED: SODIUM CHLORIDE 0.9% 1000ML 1,000 ML IV SCH (18:45)
[2017-01-15] MEDS ORDERED: MoRPHine SULFATE 2 MG/ML CARP ONE (19:03)
--- NOTE | 2017-01-15 19:09 | History and Physical ---
History & Physical Date & Time of Service: Jan 15, 2017 at 18:43 Chief Complaint: Hip Pain Primary Care Physician: Agapito Lynne M.D. History of Present Illness Source: patient 81 y/o F Hx CAD, DM, AVR, carotid stenosis, anemia, dementia, recent admission with supperative parotitis. Pt suffered a mechanical fall and resultant R intertrochanteric fracture. She denies preceding symptoms such as SOB, CP, palpitations or light-headedness but is not a reliable historian. The pt was found on the floor by a family member and denied falling despite being on the floor. She was awake and alert on arrival to the ER although she appears to have developed some confusion mild after her family departed - possibly due to sundowning. Initial labs are notable for worsening anemia in addition to hyperglycemia. 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 could not obtain Social History Smoking Status: Never Smoker Drug Use: none Marital Status: Housing status: lives alone Occupational Status: retired Immunizations History of Influenza Vaccine: No History of Tetanus Vaccine?: Unknown History of Pneumococcal: No History of Hepatitis B Vaccine: Unknown Multi-Drug Resistant Organisms History of MDRO: No Allergies Coded Allergies: Rosuvastatin (Verified Adverse Reaction, Unknown, UPSET STOMACH, 12/20/16) Simvastatin (Verified Adverse Reaction, Unknown, UPSET STOMACH, 12/20/16) Home Medications Scheduled Aspirin (Aspirin Chewable), 81 MG PO QAM Cholecalciferol (Vitamin D3), 1 CAP PO QAM Cyanocobalamin (Vitamin B12), 1 TAB PO QAM Insulin Isophan/Regular (Humulin 70/30), 5 UNITS SC QAM Metoprolol Succinate (Toprol Xl), 25 MG PO QAM Omeprazole (Prilosec), 20 MG PO BID Pravastatin Sod (Pravastatin Sodium), 1 TAB PO QAM Review of Systems Expressed that her fall was purely mechanical - cannot obtain reliable ROS on admission Physical Exam Vital Signs Date Time Temp Pulse Resp B/P (MAP) Pulse Ox O2 Delivery O2 Flow Rate FiO2 01/15/17 16:30 65 17 98/47 100 01/15/17 16:00 62 17 01/15/17 15:30 64 19 100 01/15/17 15:00 61 17 100 01/15/17 14:17 61 20 123/58 94 Room Air 01/15/17 14:03 61 01/15/17 12:40 36.4 60 22 125/36 97 Room Air General Appearance: + thin, + pertinent finding (Thin, restless and confused, elderly female in no distress. She was able to answer my questions to place and time and at the same time is disoriented ) Head: normocephalic, atraumatic ENT: normal ENT inspection, pharynx normal Neck: supple, no JVD Respiratory/Chest: chest non-tender, lungs clear, normal breath sounds Cardiovascular: regular rate, rhythm, no edema, no gallop, + systolic murmur Abdomen/GI: normal bowel sounds, non tender, soft Back: normal inspection, no CVA tenderness Extremities/Musculoskelatal: normal inspection, no calf tenderness, normal capillary refill Neurologic/Psych: + pertinent finding (As above, she is oriented and follows instructions - she appears to have very poor sight which I cannot compare to baseline She does not exhibit unilaterl weakness) Skin: warm/dry, no rash, + pallor Diagnostics Laboratory Results Results Past 24 Hours Test 01/15/17 14:02 01/15/17 14:10 01/15/17 15:19 01/15/17 18:28 Range/Units Prothrombin Time 11.8 9.0-12.0 SECONDS Prothromb Time International Ratio 1.1 0.9-1.1 Activated Partial Thromboplast Time 22.9 21.0-31.0 SECONDS Partial Thromboplastin Ratio 0.9 Sodium Level 134 136-145 mmol/L Potassium Level 4.5 3.5-5.1 mmol/L Chloride Level 101 98-107 mmol/L Carbon Dioxide Level 26 21-32 mmol/L Anion Gap 7.0 3-11 mmol/L Blood Urea Nitrogen 21 7-18 mg/dl Creatinine 1.20 0.60-1.20 mg/dl Est Creatinine Clear Calc Drug Dose 21.1 ml/min Estimated GFR () 48.4 Estimated GFR (Non- 41.8 BUN/Creatinine Ratio 17.7 10-20 Random Glucose 252 70-99 mg/dl Calcium Level 8.8 8.5-10.1 mg/dl Urine Color DK YELLOW Urine Appearance CLEAR CLEAR Urine pH 5.0 4.5-7.5 Urine Specific [place] 1.023 1.000-1.030 Urine Protein NEG NEG Urine Glucose (UA) 1+ NEG Urine Ketones TRACE NEG Urine Occult Blood NEG NEG Urine Nitrite NEG NEG Urine Bilirubin NEG NEG Urine Urobilinogen NEG NEG Urine Leukocyte Esterase NEG NEG White Blood Count 8.19 4.8-10.8 K/uL Red Blood Count 2.90 4.2-5.4 M/uL Hemoglobin 8.7 12.0-16.0 g/dL Hematocrit 26.2 37-47 % Mean Corpuscular Volume 90.3 80-100 fL Mean Corpuscular Hemoglobin 30.0 25-34 pg Mean Corpuscular Hemoglobin Concent 33.2 32-36 g/dl Platelet Count 222 130-400 K/uL Mean Platelet Volume 9.9 7.4-10.4 fL Neutrophils (%) (Auto) 78.8 % Lymphocytes (%) (Auto) 13.2 % Monocytes (%) (Auto) 7.4 % Eosinophils (%) (Auto) 0.0 % Basophils (%) (Auto) 0.1 % Neutrophils # (Auto) 6.45 1.4-6.5 K/uL Lymphocytes # (Auto) 1.08 1.2-3.4 K/uL Monocytes # (Auto) 0.61 0.11-0.59 K/uL Eosinophils # (Auto) 0.00 0-0.5 K/uL Basophils # (Auto) 0.01 0-0.2 K/uL RDW Standard Deviation 51.6 36.4-46.3 fL RDW Coefficient of Variation 15.6 11.5-14.5 % Immature Granulocyte % (Auto) 0.5 % Immature Granulocyte # (Auto) 0.04 0.00-0.02 K/uL Red Blood Cell Morphology Unremarkable Diagnostic Radiology XR hip: Angled intertrochanteric fracture right hip. Mild superior migration right femoral shaft. No evidence for dislocation. EKG rhythm is paced Impression Assessment and Plan 81 y/o F Hx CAD, DM, AVR, carotid stenosis, anemia, dementia, recent admission with supperative parotitis. Pt suffered a mechanical fall and resultant R intertrochanteric fracture. She denies preceding symptoms such as SOB, CP, palpitations or light-headedness but is not a reliable historian. The pt was found on the floor by a family member and denied falling despite being on the floor. She was awake and alert on arrival to the ER although she appears to have developed some mild confusion after her family departed - possibly due to sundowning. Initial labs are notable for worsening anemia in addition to hyperglycemia. 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 Her RCRI is technically 6.6% - her EKG is nondiagnostic due to pacing. We would advise that she is evaluated b cardiology prior to surgery and have requested a consult. The pt will continue her B melita and Statin - ASA is held and she will be NPO after midnight. 2) CAD - no evidence of ACS - cont Statin, B melita - ASA post-op 3) DM -placed on a sliding scale 4) Carotid stenosis - moderate - unlikely to lead to complications - cont Statin - restart ASA when possible 5) Dementia - it is difficult for me to assess the degree of her dementia as her family had departed and were not available at the time of admission. She appears to be exhibiting a degree of sundowning and we will provide sedatives as needed. 6) Anemia - has worsened - we will obtain a stool occult blood, trend her Hb for AM and transfuse 1 unit based on current Hb and expected blood loss. She has consented to the transfusion and appeared to understand clearly that she would receive blood. Full code - SCDs Total time for this admit including review of extensive records, labs, meds, imaging - discussion with pt and ER attending 40 min. VTE Prophylaxis VTE Risk Assessment Done? Y/N: Yes Risk Level: Moderate
[2017-01-15] MEDS: PANTOprazole SOD 40 MG TAB PO SCH (20:48)
[2017-01-15] MEDS: DOCUSATE SODIUM/SENNA 50/8.6MG TAB PO SCH (20:48)
--- NOTE | 2017-01-15 21:17 | Orthopedic Consultation ---
Orthopedic Consultation Date of Consultation: Jan 15, 2017. Attending Physician: Fer Santillan M.D. Reason for Consultation: R hip intertroch fx History of Present Illness Patient is a little confused and is uncertain as to what happened. She denies falling however she was found down by some family. She is complaining of right hip pain and inability to bear weight. Past Medical/Surgical History Medical Problems: (1) Anemia Status: Acute (2) Cellulitis of neck Status: Acute (3) Elevated troponin Status: Acute (4) Generalized weakness Status: Acute (5) Influenza Status: Acute (6) Intermittent chest pain Status: Acute (7) Intertrochanteric fracture of right hip Status: Acute (8) Neck abscess Status: Acute Family History Patient reports no known family medical history. Social History Smoking Status: Never Smoker Drug Use: none Marital Status: Occupation Status: retired Allergies Coded Allergies: Rosuvastatin (Verified Adverse Reaction, Unknown, UPSET STOMACH, 12/20/16) Simvastatin (Verified Adverse Reaction, Unknown, UPSET STOMACH, 12/20/16) Home Medications Scheduled Aspirin (Aspirin Chewable), 81 MG PO QAM Cholecalciferol (Vitamin D3), 1 CAP PO QAM Cyanocobalamin (Vitamin B12), 1 TAB PO QAM Insulin Isophan/Regular (Humulin 70/30), 5 UNITS SC QAM Metoprolol Succinate (Toprol Xl), 25 MG PO QAM Omeprazole (Prilosec), 20 MG PO BID Pravastatin Sod (Pravastatin Sodium), 1 TAB PO QAM Current Inpatient Medications Current Inpatient Medications Medications (Trade) Dose Ordered Sig/Minh Route Start Time Stop Time Status Last Admin Dose Admin Metoprolol Succinate (Toprol Xl Tab) 25 mg QAM PO 01/16/17 09:00 02/15/17 08:59 Pravastatin Sodium (Pravachol Tab) 10 mg QAM PO 01/16/17 09:00 02/15/17 08:59 Pantoprazole Sodium (Protonix Tab) 40 mg BID PO 01/15/17 21:00 02/14/17 20:59 01/15/17 20:48 40 MG Acetaminophen (Tylenol Tab) 650 mg Q4H PRN PO 01/15/17 18:30 02/14/17 18:29 Ondansetron HCl (Zofran Inj) 4 mg Q6H PRN IV 01/15/17 18:30 02/14/17 18:29 Insulin Aspart (novoLOG ASPART) SLIDING SCALE G... Q6H SC 01/16/17 00:00 02/15/17 00:00 Morphine Sulfate (MoRPHine SULFATE INJ) 2 mg Q2H PRN IV 01/15/17 18:30 01/29/17 18:29 Morphine Sulfate (MoRPHine SULFATE INJ) 4 mg Q2H PRN IV 01/15/17 18:30 01/29/17 18:29 Naloxone HCl (Narcan Inj) 0.1 mg PRN PRN IV 01/15/17 18:30 02/14/17 18:29 Senna/Docusate Sodium (Senokot S Tab) 2 tab HS PO 01/15/17 21:00 02/14/17 20:59 01/15/17 20:48 2 TAB Polyethylene (Miralax Powder Packet) 17 gm DAILY PRN PO 01/15/17 18:30 02/14/17 18:29 Magnesium Hydroxide (Milk Of Magnesia Susp) 30 ml DAILY PRN PO 01/15/17 18:30 02/14/17 18:29 Bisacodyl (Dulcolax Supp) 10 mg DAILY PRN NC 01/15/17 18:30 02/14/17 18:29 Sodium Biphosphate/ Sodium Phosphate (Fleet Enema) 132 ml PRN PRN NC 01/15/17 18:30 01/19/17 18:29 Sodium Chloride 1,000 ml @ 80 mls/hr [id number] IV 01/15/17 18:45 01/16/17 07:14 Cefazolin Sodium 60 ml @ 120 mls/hr PREOP IV 01/16/17 06:00 01/16/17 16:00 Physical Exam Date Time Temp Pulse Resp B/P (MAP) Pulse Ox O2 Delivery O2 Flow Rate FiO2 01/15/17 21:02 36.4 61 16 116/67 98 2.0 01/15/17 20:46 36.6 61 16 92/43 100 2.0 01/15/17 20:24 36.8 89 18 110/65 01/15/17 18:45 64 17 98/48 100 01/15/17 16:30 65 17 98/47 100 01/15/17 16:00 62 17 01/15/17 15:30 64 19 100 01/15/17 15:00 61 17 100 01/15/17 14:17 61 20 123/58 94 Room Air 01/15/17 14:03 61 01/15/17 12:40 36.4 60 22 125/36 97 Room Air Right lower extremity: Pain with palpation proximal aspect of the femur. Pain with internal and external rotation. The limb is shortened and internally rotated. Palpable dorsalis pedis pulse. She is able to dorsiflex and plantarflex the foot without difficulty. General Appearance: + thin Eyes: normal inspection Neck: supple Respiratory/Chest: chest non-tender Cardiovascular: regular rate, rhythm Abdomen/GI: soft Laboratory Results Last 24 Hours Test 01/15/17 14:02 01/15/17 14:10 01/15/17 15:19 01/15/17 18:59 Prothrombin Time 11.8 SECONDS Prothromb Time International Ratio 1.1 Activated Partial Thromboplast Time 22.9 SECONDS Partial Thromboplastin Ratio 0.9 Sodium Level 134 mmol/L Potassium Level 4.5 mmol/L Chloride Level 101 mmol/L Carbon Dioxide Level 26 mmol/L Anion Gap 7.0 mmol/L Blood Urea Nitrogen 21 mg/dl Creatinine 1.20 mg/dl Est Creatinine Clear Calc Drug Dose 21.1 ml/min Estimated GFR () 48.4 Estimated GFR (Non- 41.8 BUN/Creatinine Ratio 17.7 Random Glucose 252 mg/dl Calcium Level 8.8 mg/dl Iron Level 33 mcg/dl Total Iron Binding Capacity 218 mcg/dl Urine Color DK YELLOW Urine Appearance CLEAR Urine pH 5.0 Urine Specific [place] 1.023 Urine Protein NEG Urine Glucose (UA) 1+ Urine Ketones TRACE Urine Occult Blood NEG Urine Nitrite NEG Urine Bilirubin NEG Urine Urobilinogen NEG Urine Leukocyte Esterase NEG White Blood Count 8.19 K/uL Red Blood Count 2.90 M/uL Hemoglobin 8.7 g/dL Hematocrit 26.2 % Mean Corpuscular Volume 90.3 fL Mean Corpuscular Hemoglobin 30.0 pg Mean Corpuscular Hemoglobin Concent 33.2 g/dl Platelet Count 222 K/uL Mean Platelet Volume 9.9 fL Neutrophils (%) (Auto) 78.8 % Lymphocytes (%) (Auto) 13.2 % Monocytes (%) (Auto) 7.4 % Eosinophils (%) (Auto) 0.0 % Basophils (%) (Auto) 0.1 % Neutrophils # (Auto) 6.45 K/uL Lymphocytes # (Auto) 1.08 K/uL Monocytes # (Auto) 0.61 K/uL Eosinophils # (Auto) 0.00 K/uL Basophils # (Auto) 0.01 K/uL RDW Standard Deviation 51.6 fL RDW Coefficient of Variation 15.6 % Immature Granulocyte % (Auto) 0.5 % Immature Granulocyte # (Auto) 0.04 K/uL Red Blood Cell Morphology Unremarkable Bedside Glucose 187 mg/dl Test 01/15/17 20:43 Bedside Glucose 194 mg/dl Assessment & Plan Right hip intertrochanteric fracture Patient is being admitted by medical service. She has history of your stenosis and they've recommended cardiology clearance. I have tentatively placed her on the list for surgery for tomorrow pending medical and cardiac clearance. The surgical plan will be open reduction and internal fixation of the intertrochanteric fracture with a intramedullary trochanter nail. Risks benefits and alternatives to surgery were discussed with the patient's son and he wishes us to proceed.
[2017-01-16] VITALS (9 sets, daily range): BP systolic 95–126; BP diastolic 39–77; PULSE 63–81; TEMP 36.3–36.9; O2SAT 98–100
[2017-01-16] MEDS: INSULIN ASPART 100 UNITS/ML 3 ML PEN SC SCH ×5 (00:15→20:54)
[2017-01-16] MEDS ORDERED: CEFAZOLIN SOD 1000MG/55 ML D5W IV ONE ×2 (06:00→16:25)
[2017-01-16] MEDS ORDERED: CEFAZOLIN IV 2,000 MG in DEXTROSE 5% 50ML 50 ML IV SCH (06:00)
[2017-01-16] MEDS ORDERED: CEFAZOLIN 2000 MG/60 ML D5W 60 ML IV SCH (06:00)
[2017-01-16 06:24] LABS: HEMATOCRIT 28.1 % (37-47); MEAN CELL VOLUME 90.9 fL (80-100); MEAN CORPUSCULAR HEMOGLOBIN 28.5 pg (25-34); MEAN CORPUSCULAR HGB CONC 31.3 g/dl (32-36); MEAN PLATELET VOLUME 10.3 fL (7.4-10.4); PLATELET COUNT 204 K/uL (130-400); RED BLOOD COUNT 3.09 M/uL (4.2-5.4); WHITE BLOOD COUNT 6.76 K/uL (4.8-10.8)
[2017-01-16] MEDS ORDERED: CISATRACURIUM BESYLATE IV SOLN 2 MG/ML 10 ML VIAL ONE (06:33)
[2017-01-16] MEDS ORDERED: LIDOCAINE HCL 2% 2 ML VIAL (20MG/ML) ONE ×2 (06:33→16:04)
[2017-01-16] MEDS ORDERED: PROPOFOL IV EMULSION 10 MG/ML 20 ML VIAL IV ONE ×2 (06:33→16:04)
[2017-01-16] MEDS ORDERED: SUCCINYLCHOLINE CHLORIDE 20 MG/ML 10 ML VIAL IV ONE (06:33)
[2017-01-16] MEDS ORDERED: MIDAZOLAM HCL 1 MG/ML 2ML VIAL ONE ×2 (06:33→16:04)
[2017-01-16] MEDS ORDERED: ONDANSETRON INJ 2 MG/ML 2 ML VIAL ONE (06:34)
[2017-01-16] MEDS ORDERED: DEXAMETHASONE SOD INJ 4 MG/ML VIAL ONE (06:34)
[2017-01-16] MEDS ORDERED: FENTANYL CITRATE INJ 50 MCG/1 ML 2 ML VIAL ONE ×2 (06:34→16:04)
[2017-01-16] MEDS ORDERED: SODIUM CHLORIDE 0.9% 500ML 500 ML IV STA (06:36)
[2017-01-16 06:56] LABS: BUN/CREATININE RATIO 25.5 (10-20); CALCIUM 8.6 mg/dl (8.5-10.1); CREATININE 1.1 mg/dl (0.60-1.20); MAGNESIUM 1.8 mg/dl (1.8-2.4); POTASSIUM 4.5 mmol/L (3.5-5.1)
[2017-01-16] MEDS: METOPROLOL SUCC 25MG EXT REL TAB PO SCH (09:00)
[2017-01-16] MEDS: PRAVASTATIN SOD 10 MG TAB PO SCH (09:09)
[2017-01-16] MEDS: PANTOprazole SOD 40 MG TAB PO SCH ×2 (09:09→20:48)
--- NOTE | 2017-01-16 13:46 | CARDIOLOGY CONSULTATION REPORT ---
DATE OF CONSULTATION: 01/16/2017 REASON FOR CONSULTATION: 1. Preoperative cardiac evaluation. 2. History of aortic stenosis, status post bioprosthetic AVR. 3. CAD status post CABG x4 vessels. HISTORY OF PRESENT ILLNESS: Mrs. Hoyt is a demented 81-year-old white female with a history of Type 2 DM, Hyperparathyroidism status post parathyroidectomy, GERD with a history of Schatzki ring status post dilatation, chronic anemia, moderate carotid stenosis, and a history of Aortic Stenosis status post bioprosthetic AVR 2007, and CAD s/p CABG x 4 vessels 2007, who was admitted acutely yesterday after sustaining a mechanical fall which resulted in a right hip intertrochanteric fracture. She is scheduled to undergo an ORIF with an intramedullary trochanteric nail. The patient has been doing very very well from a cardiac standpoint since having her bioprosthetic AVR and 4-vessel CABG in 2007. She is able to perform her activities of daily living without limiting cardiopulmonary symptoms. She is able to walk on level surface, climb up a step or two, and getting dressed without limiting symptoms. She does admit to getting tired out if she works with her arms overhead, but has not had any angina pectoris or limiting dyspnea. She specifically denies any exertional chest pain, heaviness, tightness, pressure or discomfort. She denies any angina pectoris. She denies any shortness of breath, unusual dyspnea on exertion, orthopnea or PND. She has not had any recent changes in her exertional tolerance, orthopedic symptom of her right hip fracture and being nonweightbearing for the past 24 hours. She denies any history of palpitations, tachypalpitations, syncope or near syncope. The patient had her last Echocardiogram performed in March 2016. This showed normal LV size and systolic function, LVEF 60-65% with mild concentric LVH, grade 1 diastolic dysfunction, and the gradient is normal across her prosthetic aortic valve. There is also a mild MR and mild TR. MEDICATIONS: 1. Toprol-XL 25 mg daily. 2. Pravachol 10 mg daily. 3. Ancef 1 dose preop. 4. NovoLog sliding scale insulin. 5. Protonix 40 mg b.i.d. 6. Senokot-S 2 tablets p.o. at bedtime. 7. Tylenol p.r.n. 8. Zofran p.r.n. 9. Morphine sulfate 2-4 mg IV q. 2 hours p.r.n. for severe pain. 10. MiraLax 17 g daily as needed. 11. Milk of magnesia p.r.n. 12. Dulcolax suppository 10 mg p.r.n. 13. Fleet Enema p.r.n. for constipation. ALLERGIES: 1. ROSUVASTATIN. 2. SIMVASTATIN. PAST MEDICAL HISTORY: 1. Type 2 diabetes mellitus. 2. Aortic stenosis status post bioprosthetic AVR 2007. 3. CAD status post CABG x4 vessels 2007. 4. Dyslipidemia, on long-term statin therapy. 5. History of relative hypotension, asymptomatic. 6. History of GERD with Schatzki ring status post dilatation. 7. Osteoporosis. 8. Carotid artery stenosis. 9. History of symptomatic bradycardia status post [employer] pacemaker placement 2013. 10. History of sialoadenitis, parotitis. 11. History of pneumonia. 12. History of silent aspiration. 13. History of intermittent vertigo. 14. History of atypical chest pain. 15. Chronic anemia. 16. Currently with a right hip intertrochanteric fracture. SOCIAL HISTORY: The patient is . Does not use tobacco or tobacco products. Does not use alcohol. FAMILY HISTORY: There is no family history of premature CAD to the patient's knowledge. PHYSICAL EXAMINATION: VITAL SIGNS: Temperature is 36.9 degrees Celsius, pulse is 68 and regular, respiratory rate is 15 and unlabored, blood pressure is 95/41, SpO2 is 100% on room air. GENERAL: The patient is in no acute distress. HEENT: Head is atraumatic, normocephalic. EOMs intact. Sclerae are anicteric. Facies symmetric. No perioral cyanosis. NECK: Without thyromegaly, adenopathy or JVD. Carotid upstrokes are +2 bilaterally. Bilateral carotid bruits versus transmitted murmur noted. CHEST AND LUNGS: Clear to auscultation throughout all lung godinez. No wheezes, rales or rhonchi. CARDIOVASCULAR: S1 and S2 are regular with a grade 2/6 basal systolic murmur which radiates through suprasternal notch, bilateral carotids and left sternal border. Aortic valve closure sound is audible on both the apex and the base. No diastolic murmurs appreciated. No obvious gallops or rubs. PMI is nondisplaced. No lifts, heaves or thrills. No abdominal, aortic or renal bruits. ABDOMEN: Bowel sounds present. No masses, organomegaly or tenderness. EXTREMITIES: Without edema. NEUROLOGIC: The patient arouses to verbal stimuli. The patient is awake, alert and is oriented x3. Answers questions appropriately. Speech is clear, speech is loud. Normal movement bilateral upper extremities. Chest x-ray on admission shows emphysematous changes, no acute changes. Hip x-ray shows an angled intertrochanteric fracture of the right hip with mild superior migration of the right femoral shaft. No evidence of dislocation. EKG on admission shows AV sequential pacing at a rate of 61 beats per minute. QRS duration is 164 msec. Corrected QT interval is 507 msec, and less than half of the RR interval. LABORATORIES: White blood cell count is 6.76. Hemoglobin is 8.8 g/dL, hematocrit 28.1%, platelet count 204,000. Sodium is 135 mmol/L, potassium 4.5 mmol/L, BUN 28 mg/dL, creatinine 1.10 mg/dL. Random glucose 204 mg/dL. Serum magnesium level is normal at 1.8 mg/dL. ASSESSMENT: 1. Right hip intertrochanteric fracture secondary to mechanical fall. 2. History of aortic valve disease, status post bioprosthetic aortic valve replacement 2007. 3. Coronary artery disease status post coronary artery bypass graft x4 vessels 2007. 4. History of symptomatic bradycardia status post [employer] dual chamber pacemaker placement 2013. 5. Diagnosis mentioned above. PLAN: 1. The patient's most recent Echocardiogram March 2016 shows normal LV size and systolic function, appropriately functioning of the bioprosthetic aortic valve, and only mild MR and mild TR. Based on her normal LV systolic function, stable EKG tracing, lack of limiting cardiopulmonary symptoms or angina pectoris, and the necessity to proceed with right hip ORIF -- the patient is a low to intermediate surgical risk. We recommended she takes her usual dose of Toprol-XL the morning of surgery with sips of water. There is no need for further cardiac workup at this time. 2. Continue to closely monitor daily I&Os. 3. The patient would likely benefit from a transfusion of PRBC's. She will most likely need one following surgery. 4. Continue current statin therapy. 5. Resume aspirin postoperatively when okay with surgeon. 6. Continue Protonix for GI protection. Thank you for asking us to see this patient in consultation. Attending note: I saw and examined the patient at the bedside and agree with the consultation report as noted above. Patient does report occasional episodes of jaw discomfort with some activities. This could be construed as angina. However, this is very stable in nature in dates back several years. She is not appear to have any other form of decompensation. Her echocardiogram results are noted above and are not concerning. I agree with the recommendation for proceeding to surgery without additional testing. I would agree with the standard recommendations in those noted above which include avoiding significant anemia or blood loss, avoiding hypoxia, hypotension or significant tachycardia. Continuation of her beta-melita in the perioperative period is also recommended. Additionally, I performed a complete device interrogation of the patient's dual- chamber pacemaker. This appears to be normally functioning with normal thresholds and longevity. She does appear to be pacemaker dependent. She does not have any intrinsic ventricular rhythm at heart rates down to 30 beats per minute. One additional recommendation for her surgery would be use of a magnet or reprogramming to a non sensing mode to avoid inhibition from cautery. Additionally, the grounding pad for cautery should be placed below the level of the umbilicus in order to reduce the chance of inhibition. GEOVANNA
--- NOTE | 2017-01-16 14:33 | Hospitalist Progress Note ---
Hospitalist Progress Note Date of Service Jan 16, 2017. (Monika Gastelum PA-C) Subjective Pt evaluation today including: conversation w/ patient, physical exam, chart review, lab review, review of studies, review of inpatient medication list Patient seen and evaluated. Due for OR today for R intertrochanteric fx. Patient appears to be somewhat confused. Likely this is baseline. Reporting pain is currently controlled, actually thought she already had surgery. Cardiology in for cardiac clearance. Noted to have limited UO overnight. Will continue to monitor Constitutional: No fever, No chills Respiratory: No shortness of breath Cardiovascular: No chest pain Abdomen: No pain, No nausea, No vomiting, No diarrhea, No constipation Musculoskeletal: + joint pain (R leg with movement) Female : No dysuria Heme: No abnormal bleeding/bruising (Monika Gastelum PA-C) Medications Current Inpatient Medications Medications (Trade) Dose Ordered Sig/Minh Route Start Time Stop Time Status Last Admin Dose Admin Metoprolol Succinate (Toprol Xl Tab) 25 mg QAM PO 01/16/17 09:00 02/15/17 08:59 Pravastatin Sodium (Pravachol Tab) 10 mg QAM PO 01/16/17 09:00 02/15/17 08:59 01/16/17 09:09 10 MG Pantoprazole Sodium (Protonix Tab) 40 mg BID PO 01/15/17 21:00 02/14/17 20:59 01/16/17 09:09 40 MG Acetaminophen (Tylenol Tab) 650 mg Q4H PRN PO 01/15/17 18:30 02/14/17 18:29 Ondansetron HCl (Zofran Inj) 4 mg Q6H PRN IV 01/15/17 18:30 02/14/17 18:29 Insulin Aspart (novoLOG ASPART) SLIDING SCALE G... Q6H SC 01/16/17 00:00 02/15/17 00:00 01/16/17 06:21 2 UNITS Morphine Sulfate (MoRPHine SULFATE INJ) 2 mg Q2H PRN IV 01/15/17 18:30 01/29/17 18:29 Morphine Sulfate (MoRPHine SULFATE INJ) 4 mg Q2H PRN IV 01/15/17 18:30 01/29/17 18:29 Naloxone HCl (Narcan Inj) 0.1 mg PRN PRN IV 01/15/17 18:30 02/14/17 18:29 Senna/Docusate Sodium (Senokot S Tab) 2 tab HS PO 01/15/17 21:00 02/14/17 20:59 01/15/17 20:48 2 TAB Polyethylene (Miralax Powder Packet) 17 gm DAILY PRN PO 01/15/17 18:30 02/14/17 18:29 Magnesium Hydroxide (Milk Of Magnesia Susp) 30 ml DAILY PRN PO 01/15/17 18:30 02/14/17 18:29 Bisacodyl (Dulcolax Supp) 10 mg DAILY PRN DC 01/15/17 18:30 02/14/17 18:29 Sodium Biphosphate/ Sodium Phosphate (Fleet Enema) 132 ml PRN PRN DC 01/15/17 18:30 01/19/17 18:29 Cefazolin Sodium 60 ml @ 120 mls/hr PREOP IV 01/16/17 06:00 01/16/17 16:00 (Monika Gastelum, PA-C) Objective Vital Signs Date Time Temp Pulse Resp B/P (MAP) Pulse Ox O2 Delivery O2 Flow Rate FiO2 01/16/17 09:09 95/41 (59) 01/16/17 08:07 36.9 69 15 110/66 (81) 100 Room Air 01/16/17 07:20 Room Air 01/16/17 06:42 36.7 63 16 96/39 (58) 100 Room Air 01/16/17 01:10 Room Air 01/15/17 23:57 98 Room Air 01/15/17 22:57 36.7 73 16 108/53 100 01/15/17 22:01 36.7 61 16 98/40 100 2.0 01/15/17 21:32 36.5 62 16 92/45 97 2.0 01/15/17 21:02 36.4 61 16 116/67 98 2.0 01/15/17 20:46 36.6 61 16 92/43 100 2.0 01/15/17 20:24 36.8 89 18 110/65 01/15/17 19:10 36.8 64 16 88/52 100 Nasal Cannula 2.0 01/15/17 18:45 64 17 98/48 100 01/15/17 16:30 65 17 98/47 100 01/15/17 16:00 62 17 01/15/17 15:30 64 19 100 01/15/17 15:00 61 17 100 (Monika Gastelum PA-C) Physical Exam General Appearance: no apparent distress, + thin Eyes: sclerae normal ENT: hearing grossly normal Neck: supple, no JVD, trachea midline Respiratory/Chest: lungs clear, normal breath sounds, no respiratory distress, no accessory muscle use Cardiovascular: regular rate, rhythm, no gallop, no murmur Abdomen: normal bowel sounds, non tender, soft Extremities: no pedal edema, no calf tenderness Neurologic/Psychiatric: alert Skin: normal color, warm/dry (Monika Gastelum, ERIKA-C) Laboratory Results Last 24 Hours Test 01/15/17 15:19 01/15/17 18:59 01/15/17 20:43 01/15/17 23:57 White Blood Count 8.19 K/uL Red Blood Count 2.90 M/uL Hemoglobin 8.7 g/dL Hematocrit 26.2 % Mean Corpuscular Volume 90.3 fL Mean Corpuscular Hemoglobin 30.0 pg Mean Corpuscular Hemoglobin Concent 33.2 g/dl Platelet Count 222 K/uL Mean Platelet Volume 9.9 fL Neutrophils (%) (Auto) 78.8 % Lymphocytes (%) (Auto) 13.2 % Monocytes (%) (Auto) 7.4 % Eosinophils (%) (Auto) 0.0 % Basophils (%) (Auto) 0.1 % Neutrophils # (Auto) 6.45 K/uL Lymphocytes # (Auto) 1.08 K/uL Monocytes # (Auto) 0.61 K/uL Eosinophils # (Auto) 0.00 K/uL Basophils # (Auto) 0.01 K/uL RDW Standard Deviation 51.6 fL RDW Coefficient of Variation 15.6 % Immature Granulocyte % (Auto) 0.5 % Immature Granulocyte # (Auto) 0.04 K/uL Red Blood Cell Morphology Unremarkable Bedside Glucose 187 mg/dl 194 mg/dl 215 mg/dl Test 01/16/17 06:02 01/16/17 06:14 01/16/17 11:52 White Blood Count 6.76 K/uL Red Blood Count 3.09 M/uL Hemoglobin 8.8 g/dL Hematocrit 28.1 % Mean Corpuscular Volume 90.9 fL Mean Corpuscular Hemoglobin 28.5 pg Mean Corpuscular Hemoglobin Concent 31.3 g/dl RDW Standard Deviation 51.6 fL RDW Coefficient of Variation 15.7 % Platelet Count 204 K/uL Mean Platelet Volume 10.3 fL Sodium Level 135 mmol/L Potassium Level 4.5 mmol/L Chloride Level 103 mmol/L Carbon Dioxide Level 25 mmol/L Anion Gap 7.0 mmol/L Blood Urea Nitrogen 28 mg/dl Creatinine 1.10 mg/dl Est Creatinine Clear Calc Drug Dose 23.0 ml/min Estimated GFR () 53.8 Estimated GFR (Non- 46.4 BUN/Creatinine Ratio 25.5 Random Glucose 194 mg/dl Calcium Level 8.6 mg/dl Magnesium Level 1.8 mg/dl Bedside Glucose 204 mg/dl 146 mg/dl (Monika Gastelum, RUDDYC) Assessment and Plan Ms. Hoyt is an 81 y/o female with PMHx of CAD, DM, AVR, Carotid Stenosis, Anemia, Dementia, and recent supperative parotitis. She suffered a mechanical fall with R intertrochanteric Fx R Intertrochanteric Fx: - Cardiology consulted for pre-op clearance - patient cleared - Orthopedics following - possible surgery today Chronic Anemia: - Slightly worse than baseline and transfused 1 unit PRBC on 01/15 - may need additional transfusion - Monitor for need of further transfusion CAD S/P Pacer: - Metoprolol Succ 25 mg daily DM: - Cover with SSI Carotid Stenosis: Moderate - STABLE - Hold ASA at this time - will resume when possible - Pravastatin 10 mg daily Dementia: - Following commands but short memory span - asks same question multiple times - unsure of baseline DVT Prophylaxis: SCDs Code Status: FULL RESUSCITATION Disposition: - PT/OT evaluations - will need rehab Continued [facility] stay due to: multiple IV medications needed Discharge planning: alf facility (Monika Gastelum PA-C) Reviewed: Pt Seen/Exam by Me (Norma Young DO) History Pt is currently awaiting OR. She states that she does not have much pain. She is pleasantly confused per nursing and has to be redirected frequently. Agree with HPI/ROS as noted. (Young, Norma A., DO) General Appearance: WD/WN, no apparent distress Respiratory: normal breath sounds, no respiratory distress Cardiovascular: normal peripheral pulses, regular rate, rhythm Gastrointestinal: non tender, soft Extremities: non-tender, no pedal edema Neurologic/Psychiatric: alert (to person, answers all questions however does not remember that her surgery has not happened yet, pleasant), normal mood/ affect Skin Characteristics: normal color, warm/dry (Norma Young DO) Assessment/Plan Agree with plan as outlined above Pt with R hip fracture s/p mechanical fall Planning for OR later in the day Hb is borderline, monitor Dementia at baseline, stable (Norma Young, DO)
[2017-01-16] MEDS ORDERED: BUPIVACAINE 0.5 % 5 MG/1 ML PF 10ML VIAL ONE (16:00)
[2017-01-16] MEDS ORDERED: KETAMINE HCL INJ 50 MG/ML 10 ML VIAL ONE (16:05)
--- NOTE | 2017-01-16 17:00 | History & Physical Bridge Note ---
H&P Re-Evaluation Bridge Note: I have examined the patient, reviewed the History & Physical and in the interval since the performance of the History & Physical I have noted the following changes of clinical significance: No changes noted
[2017-01-16] MEDS ORDERED: PHENYLEPHRINE HCL INJ 10 MG/ML VIAL ONE (17:29)
[2017-01-16] MEDS ORDERED: EpHEDrine SULFATE 50MG/5ML SYR ONE (17:29)
[2017-01-16] MEDS ORDERED: ATROPINE SULFATE 0.1 MG/ML 5ML SYR IV PRN (17:45)
[2017-01-16] MEDS ORDERED: ONDANSETRON INJ 2 MG/ML 2 ML VIAL IV PRN ×2 (17:45→18:45)
[2017-01-16] MEDS ORDERED: KETOROLAC TROMETHAMINE 15 MG/ML VIAL IV. PRN (17:45)
[2017-01-16] MEDS ORDERED: HYDROmorphone INJ 0.5 MG/0.5 ML SYR IV PRN (17:45)
--- NOTE | 2017-01-16 18:41 | DIAGNOSTIC IMAGING REPORT ---
RIGHT HIP OR FILMS CLINICAL HISTORY: RT TROCHNAIL Right COMPARISON STUDY: Right hip 01/15/2017. FLUOROSCOPY TIME: 1 minute and 3 seconds. FINDINGS: 4 fluoroscopic spot images of the right hip. There is a short proximal femoral intramedullary aneudy with an interlocking femoral neck pin. This traverses the right hip fracture. The hardware appears intact. IMPRESSION: Fluoroscopy provided for internal fixation of a right hip fracture. Electronically signed by: Lucas Olivares M.D. 01/16/2017 6:39 PM Dictated Date/Time: 01/16/2017 6:39 PM
--- NOTE | 2017-01-16 18:42 | [facility] Operative Report ---
Operative Report Operative Date Jan 16, 2017. Pre-Operative Diagnosis Right hip, intertrochanteric fracture Post-Operative Diagnosis Same Procedure(s) Performed ORIF right hip with TFN Surgeon Dr Castro It Service Delivery Manager Surgeon(s) None Estimated Blood Loss 50ML Findings As above Specimens none Drains none Anesthesia spinal Complication(s) None Disposition Recovery Room / PACU Indications 81-year-old female sustained a fall. X-rays demonstrated displaced intertrochanteric fracture. She and her son wished to proceed with operative repair. Description of Procedure Risks benefits and alternatives of surgery including but not limited to infection, DVT, PE, pain, stiffness, need for surgery, damage to blood vessels, damage to nerves or risks of anesthesia, were discussed with the patient and her family and they wished to proceed. Patient was identified in the laterality was confirmed and marked. They received a preoperative antibiotic. The patient was transferred to the fracture table. The operative limb was placed in traction and the well leg was placed in a well leg bernard that was well-padded. The arms were well-padded and placed out of the way of the surgical field. I confirmed reduction of the fracture with fluoroscopy with the patient's fracture table and made adjustments to fracture table alignment is necessary to reduce the fracture appropriately. The hip was then prepped and draped in the usual standard manner with ChloraPrep. I made a longitudinal incision proximal to the greater trochanter. I sharply incised through the skin and then used Bovie electrocautery to achieve hemostasis. I incised through the fascia and then bluntly dissected down to the tip of the greater trochanter. Under fluoroscopic guidance I placed a guide pin into the greater trochanter and ensured proper placement on both AP and lateral fluoroscopy views. Once I was satisfied with the position of the guide. I advanced this distally. I then overreamed with the 17 mm proximal reamer. I then placed a Synthes trochanteric fixation nail into position. The size of the nail was a short nail. Then I placed the guide arm onto the nail insertion device made a stab incision more distally and then placed the drill guide for the helical blade. I adjusted the position of the nail as necessary to ensure that the guidepin was center center in the femoral head. Once I was satisfied with the position of the pin advanced it to the appropriate position of the femoral head. I then measured and then reamed the lateral cortex and then reamed down into the femoral head. I then inserted a size [address] I then locked the set screw proximally and then compressed the fracture. Then through a stab incision I placed a interlocking screw through the drill guide. I confirmed hardware placement and maintenance of reduction on AP and lateral fluoroscopy views. Wounds were then thoroughly irrigated. The fascia was closed with interrupted #1 Vicryl suture. Subcutaneous tissues closed with interrupted 2-0 Vicryl suture and the skin with moi. Sterile dressings applied. All needle and sponge counts were correct at the end of the procedure the patient was transferred to the PACU in stable condition without apparent complication. I attest to the content of the Intraoperative Record and any orders documented therein. Any exceptions are noted below.
[2017-01-16] MEDS ORDERED: MAGNESIUM HYDROXIDE SUSP 30 ML UDC PO PRN (18:45)
[2017-01-16] MEDS ORDERED: NURSING VERBAL MED ORDER ONE (19:15)
[2017-01-16] MEDS: SODIUM CHLORIDE 0.9% 1000ML 1,000 ML IV SCH (19:40)
--- NOTE | 2017-01-16 20:10 | Anesthesiology Progress Note ---
Anesthesia Post Op Note Date & Time Jan 16, 2017 at 20:10 Vital Signs Pain Intensity: 0 Vital Signs Past 12 Hours Date Time Temp Pulse Resp B/P (MAP) Pulse Ox O2 Delivery O2 Flow Rate FiO2 01/16/17 19:22 78 20 01/16/17 19:22 74 20 100 01/16/17 19:21 124/56 01/16/17 19:17 86 19 100 01/16/17 19:17 86 19 01/16/17 19:15 124/57 01/16/17 19:12 18 01/16/17 19:12 87 18 111/72 01/16/17 19:10 148/62 01/16/17 19:07 89 21 01/16/17 19:07 89 21 100 01/16/17 19:05 112/71 01/16/17 19:03 36.1 90 21 118/66 (92) 100 Nasal Cannula 2 01/16/17 19:02 83 18 100 01/16/17 19:02 83 18 01/16/17 19:01 118/66 01/16/17 18:57 82 20 100 01/16/17 18:57 74 20 01/16/17 18:55 122/56 01/16/17 18:52 72 19 01/16/17 18:52 73 19 100 01/16/17 18:51 121/46 01/16/17 18:47 69 20 01/16/17 18:47 67 20 100 01/16/17 18:46 69 21 01/16/17 18:46 67 21 100 01/16/17 18:45 119/51 01/16/17 18:41 65 20 100 01/16/17 18:41 68 20 01/16/17 18:40 101/50 01/16/17 18:36 72 22 01/16/17 18:36 90 22 95/63 100 01/16/17 18:31 68 19 01/16/17 18:31 68 19 109/40 100 01/16/17 18:31 36.1 69 16 109/40 (77) 100 Mask 10 01/16/17 16:33 36.7 68 16 109/60 (76) 99 Room Air 01/16/17 15:20 Room Air 01/16/17 15:03 36.7 65 18 121/60 (80) 99 Room Air 01/16/17 09:09 95/41 (59) Notes Mental Status: alert / awake / arousable, participated in evaluation Pt Amnestic to Procedure: Yes Nausea / Vomiting: adequately controlled Pain: adequately controlled Airway Patency, RR, SpO2: stable & adequate BP & HR: stable & adequate Hydration State: stable & adequate Anesthetic Complications: no major complications apparent
[2017-01-16] MEDS: DOCUSATE SODIUM/SENNA 50/8.6MG TAB PO SCH (20:48)
[2017-01-16] MEDS: CEFAZOLIN IV 1,000 MG in DEXTROSE 5% 50ML 50 ML IV SCH (23:59)
[2017-01-17] VITALS (11 sets, daily range): BP systolic 94–136; BP diastolic 52–84; PULSE 76–92; TEMP 36.3–36.7; O2SAT 100
[2017-01-17] MEDS: OXYCODONE HCL IR 5 MG TAB (IMMEDIATE RELEASE) PO PRN ×4 (00:31→19:14)
[2017-01-17 07:00] LABS: HEMATOCRIT 24.2 % (37-47); MEAN CORPUSCULAR HEMOGLOBIN 30.1 pg (25-34); MEAN CORPUSCULAR HGB CONC 33.5 g/dl (32-36); MEAN PLATELET VOLUME 9.6 fL (7.4-10.4); PLATELET COUNT 165 K/uL (130-400); RED BLOOD COUNT 2.69 M/uL (4.2-5.4); WHITE BLOOD COUNT 6.68 K/uL (4.8-10.8)
[2017-01-17 07:39] LABS: CALCIUM 8.4 mg/dl (8.5-10.1); CREATININE 0.79 mg/dl (0.60-1.20); POTASSIUM 4.1 mmol/L (3.5-5.1)
--- NOTE | 2017-01-17 07:50 | Orthopedic Progress Note ---
Orthopedic Progress Note Date of Service Jan 17, 2017. Subjective Post OP Day: 1 Additional Notes: Pt sleeping upon entering room. States she feels ok today but that her right hip hurts if she moves it too much. No other complaints. Objective calves soft nontender, N/V intact, dressing C/D/I, toes mobile Date Time Temp Pulse Resp B/P (MAP) Pulse Ox O2 Delivery O2 Flow Rate FiO2 01/17/17 07:20 Room Air 01/17/17 07:13 36.7 77 18 107/58 (74) 100 Room Air 01/17/17 03:42 36.5 81 20 116/84 (95) 100 Room Air 01/17/17 00:10 Room Air 01/16/17 22:49 36.5 77 16 96/59 (71) 100 Room Air 01/16/17 21:32 36.5 68 16 95/54 (68) 100 Nasal Cannula 1.0 01/16/17 20:30 36.3 70 16 107/64 (78) 100 Nasal Cannula 2.0 01/16/17 20:00 36.3 81 16 100/67 (78) 98 Nasal Cannula 2.0 01/16/17 19:30 100 Nasal Cannula 2.0 01/16/17 19:30 36.3 71 18 126/77 (93) 100 Nasal Cannula 2.0 01/16/17 19:22 78 20 01/16/17 19:22 74 20 100 01/16/17 19:21 124/56 01/16/17 19:17 86 19 100 01/16/17 19:17 86 19 01/16/17 19:15 124/57 01/16/17 19:12 18 01/16/17 19:12 87 18 111/72 01/16/17 19:10 148/62 01/16/17 19:07 89 21 01/16/17 19:07 89 21 100 01/16/17 19:05 112/71 01/16/17 19:03 36.1 90 21 118/66 (92) 100 Nasal Cannula 2 01/16/17 19:02 83 18 100 01/16/17 19:02 83 18 01/16/17 19:01 118/66 01/16/17 18:57 82 20 100 01/16/17 18:57 74 20 01/16/17 18:55 122/56 01/16/17 18:52 72 19 01/16/17 18:52 73 19 100 01/16/17 18:51 121/46 01/16/17 18:47 69 20 01/16/17 18:47 67 20 100 01/16/17 18:46 69 21 01/16/17 18:46 67 21 100 01/16/17 18:45 119/51 01/16/17 18:41 65 20 100 01/16/17 18:41 68 20 01/16/17 18:40 101/50 01/16/17 18:36 72 22 01/16/17 18:36 90 22 95/63 100 01/16/17 18:31 68 19 01/16/17 18:31 68 19 109/40 100 01/16/17 18:31 36.1 69 16 109/40 (77) 100 Mask 10 01/16/17 16:33 36.7 68 16 109/60 (76) 99 Room Air 01/16/17 15:20 Room Air 01/16/17 15:03 36.7 65 18 121/60 (80) 99 Room Air 01/16/17 09:09 95/41 (59) 01/16/17 08:07 36.9 69 15 110/66 (81) 100 Room Air Laboratory Results 24 Hours: Test 01/17/17 06:41 Hematocrit 24.2 % Hemoglobin 8.1 g/dL Assessment & Plan Assessment: POD 1 s/p Right TFN Plan: Follow Hgb. Transfuse as per Med Service PT/OT today Planning for [facility] when ready for DC Dressing change tomorrow Inhouse Planning Pain Management: Dilaudid, PO Tylenol, Oxy IR DVT Prophylaxis: TEDs, SCDs Discharge Planning Discharge Planning: rehab hospital
--- NOTE | 2017-01-17 08:19 | Anesthesiology Progress Note ---
Anesthesia Post Op Note Date & Time Jan 17, 2017 at 08:19 Vital Signs Vital Signs Past 12 Hours Date Time Temp Pulse Resp B/P (MAP) Pulse Ox O2 Delivery O2 Flow Rate FiO2 01/17/17 07:20 Room Air 01/17/17 07:13 36.7 77 18 107/58 (74) 100 Room Air 01/17/17 03:42 36.5 81 20 116/84 (95) 100 Room Air 01/17/17 00:10 Room Air 01/16/17 22:49 36.5 77 16 96/59 (71) 100 Room Air 01/16/17 21:32 36.5 68 16 95/54 (68) 100 Nasal Cannula 1.0 01/16/17 20:30 36.3 70 16 107/64 (78) 100 Nasal Cannula 2.0 Notes Mental Status: alert / awake / arousable, participated in evaluation Pt Amnestic to Procedure: Yes Nausea / Vomiting: adequately controlled Pain: adequately controlled Airway Patency, RR, SpO2: stable & adequate BP & HR: stable & adequate Hydration State: stable & adequate Neuraxial Anesthesia: was administered, sensory block resolved Anesthetic Complications: no major complications apparent
[2017-01-17] MEDS: INSULIN ASPART 100 UNITS/ML 3 ML PEN SC SCH ×4 (08:31→21:35)
[2017-01-17] MEDS: SODIUM CHLORIDE 0.9% 1000ML 1,000 ML IV SCH ×2 (08:32→21:43)
[2017-01-17] MEDS: CEFAZOLIN IV 1,000 MG in DEXTROSE 5% 50ML 50 ML IV SCH (08:32)
[2017-01-17] MEDS: METOPROLOL SUCC 25MG EXT REL TAB PO SCH (08:35)
[2017-01-17] MEDS: PANTOprazole SOD 40 MG TAB PO SCH ×2 (08:36→21:32)
[2017-01-17] MEDS: PRAVASTATIN SOD 10 MG TAB PO SCH (08:36)
[2017-01-17] MEDS: ASPIRIN/ALUM/MAGNES/CAL CARB 325 MG TAB PO SCH ×2 (08:36→21:33)
[2017-01-17] MEDS: ACETAMINOPHEN 325 MG TAB PO PRN (08:40)
--- NOTE | 2017-01-17 08:55 | CARDIOLOGY PROGRESS NOTE ---
DATE: 01/17/2017 HISTORY OF PRESENT ILLNESS: Ms. Hoyt is an 81-year-old white female who is now postoperative day #1 from a right hip ORIF with intramedullary trochanteric nail. She has not had any complications intraoperatively, but has developed a slightly worse anemia postoperatively. She remains asymptomatic with her anemia, although she does admit to chronic fatigue. She denies any chest pain, heaviness, tightness, pressure, or discomfort. She denies any angina pectoris. She denies any jaw pain, neck, back or arm pain. She denies any shortness of breath, dyspnea on exertion, orthopnea, or pnd. No palpitations, syncope, or near syncope. PHYSICAL EXAMINATION: VITAL SIGNS: Temperature is 36.7 degrees Celsius, pulse 77 and regular, respiratory rate is 18 and unlabored, blood pressure 107/58. SPO2 is 100% on room air. GENERAL: The patient is in no acute distress. HEENT: Head is atraumatic, normocephalic. EOMs intact. Sclerae are anicteric. No perioral cyanosis. NECK: Without thyromegaly, adenopathy or JVD. Carotid upstrokes +2 bilaterally. Bilateral carotid bruits versus transmitted murmur noted. CHEST AND LUNGS: Clear to auscultation throughout all lung godinez, no wheezes, rales or rhonchi. CARDIOVASCULAR: S1 and S2 are regular with a grade 2/6 basal systolic murmur which radiates to the suprasternal notch, bilateral carotids and left sternal border. Aortic valve closure sound is audible at both the apex and the base. No diastolic murmurs appreciated. No gallops or rubs. PMI is nondisplaced. No lifts, heaves, or thrills. No abdominal, aortic or renal bruits. ABDOMEN: Bowel sounds present. No masses, organomegaly or tenderness. EXTREMITIES: Without edema. NEUROLOGIC: The patient is awake, alert and oriented. Pleasant and cooperative. Answers questions appropriately. Speech is clear but loud. LABORATORY DATA: White blood cell count is 6.68. Hemoglobin is 8.1 g/dL, hematocrit 24.2%, platelet count 165,000. Sodium is 137 mmol/L, potassium 4.1 mmol/L, BUN 22 mg/dL, creatinine 0.79 mg/dL. Random glucose 188 mg/dL. ASSESSMENT: 1. Postoperative day #1 right hip open reduction internal fixation. 2. History of Aortic Stenosis, status post bioprosthetic aortic valve replacement. 3. Coronary Artery Disease status post coronary artery bypass graft x4 vessels. 4. Type 2 diabetes mellitus. 5. Acute on chronic anemia, asymptomatic thus far. 6. History of hyperparathyroidism status post parathyroidectomy. 7. Gastroesophageal reflux disease. 8. Moderate carotid stenosis. PLAN: 1. The patient remains asymptomatic from a cardiac standpoint, despite her slightly worsened anemia. 2. Surgical pain is well controlled at this time. 3. As she is asymptomatic from her anemia and her renal function is stable, we will continue to observe. If hemoglobin drops to < 8.0 gm/dL, we would recommend transfusion of 1 unit packed red blood cells. 4. Continue Toprol-XL 25 mg daily. 5. Continue Pravachol 10 mg daily. 6. Protonix 40 mg b.i.d. for GI protection. 7. Ongoing pain management as per surgeon. 8. Ongoing DVT prophylaxis as per surgeon. 9. We will continue to follow. MTDD
--- NOTE | 2017-01-17 12:54 | Hospitalist Progress Note ---
Hospitalist Progress Note Date of Service Jan 17, 2017. (Monika Gastelum PA-C) Subjective Pt evaluation today including: conversation w/ patient, physical exam, chart review, lab review, review of studies, review of inpatient medication list Patient seen and evaluated. Is S/P ORIF of R Hip on 01/16. Patient reporting good control of pain. Hemoglobin at 8.1. Denies CP, SOB, palpitations. + Orthostatic BPs. BP low. Remains asymptomatic from anemic standpoint. Constitutional: No fever, No chills Respiratory: No shortness of breath Cardiovascular: No chest pain, No palpitations Musculoskeletal: + joint pain (R hip with movement), No swelling, No calf pain Female : No dysuria Heme: No abnormal bleeding/bruising (Monika Gastelum PA-C) Medications Current Inpatient Medications Medications (Trade) Dose Ordered Sig/Minh Route Start Time Stop Time Status Last Admin Dose Admin Metoprolol Succinate (Toprol Xl Tab) 25 mg QAM PO 01/16/17 09:00 02/15/17 08:59 Pravastatin Sodium (Pravachol Tab) 10 mg QAM PO 01/16/17 09:00 02/15/17 08:59 01/17/17 08:36 10 MG Pantoprazole Sodium (Protonix Tab) 40 mg BID PO 01/15/17 21:00 02/14/17 20:59 01/17/17 08:36 40 MG Morphine Sulfate (MoRPHine SULFATE INJ) 2 mg Q2H PRN IV 01/15/17 18:30 01/29/17 18:29 Morphine Sulfate (MoRPHine SULFATE INJ) 4 mg Q2H PRN IV 01/15/17 18:30 01/29/17 18:29 Naloxone HCl (Narcan Inj) 0.1 mg PRN PRN IV 01/15/17 18:30 02/14/17 18:29 Senna/Docusate Sodium (Senokot S Tab) 2 tab HS PO 01/15/17 21:00 02/14/17 20:59 01/16/17 20:48 2 TAB Polyethylene (Miralax Powder Packet) 17 gm DAILY PRN PO 01/15/17 18:30 02/14/17 18:29 Bisacodyl (Dulcolax Supp) 10 mg DAILY PRN PA 01/15/17 18:30 02/14/17 18:29 Sodium Biphosphate/ Sodium Phosphate (Fleet Enema) 132 ml PRN PRN PA 01/15/17 18:30 01/19/17 18:29 Hydromorphone HCl (Dilaudid Inj) 0.25 mg Q5M PRN IV 01/16/17 17:45 01/17/17 23:00 Sodium Chloride 1,000 ml @ 75 mls/hr [id number] IV 01/16/17 19:15 02/15/17 19:14 01/17/17 08:32 75 MLS/HR Ondansetron HCl (Zofran Inj) 4 mg Q6H PRN IV 01/16/17 18:45 02/15/17 18:44 Acetaminophen (Tylenol Tab) 650 mg Q6H PRN PO 01/16/17 18:45 02/15/17 18:44 01/17/17 08:40 650 MG Oxycodone HCl (Roxicodone Immediate Rel Tab) 5 mg Q4H PRN PO 01/16/17 18:45 01/30/17 18:44 01/17/17 09:27 5 MG Aspirin/Aluminum/ Magnesium/Ca Carb (Ascriptin Tab) 325 mg BID PO 01/17/17 09:00 02/16/17 08:59 01/17/17 08:36 325 MG Polyethylene (Miralax Powder Packet) 17 gm Q6 PO 01/18/17 06:00 02/17/17 05:59 Magnesium Hydroxide (Milk Of Magnesia Susp) 30 ml DAILY PRN PO 01/16/17 18:45 02/15/17 18:44 Insulin Aspart (novoLOG ASPART) SLIDING SCALE G... ACHS SC 01/16/17 21:00 02/15/17 20:59 01/17/17 12:21 2 UNITS (Monika Gastelum, ABILIO) Objective Vital Signs Date Time Temp Pulse Resp B/P (MAP) Pulse Ox O2 Delivery O2 Flow Rate FiO2 01/17/17 11:55 36.5 76 16 94/52 (66) 100 Room Air 01/17/17 07:20 Room Air 01/17/17 07:13 36.7 77 18 107/58 (74) 100 Room Air 01/17/17 03:42 36.5 81 20 116/84 (95) 100 Room Air 01/17/17 00:10 Room Air 01/16/17 22:49 36.5 77 16 96/59 (71) 100 Room Air 01/16/17 21:32 36.5 68 16 95/54 (68) 100 Nasal Cannula 1.0 01/16/17 20:30 36.3 70 16 107/64 (78) 100 Nasal Cannula 2.0 01/16/17 20:00 36.3 81 16 100/67 (78) 98 Nasal Cannula 2.0 01/16/17 19:30 100 Nasal Cannula 2.0 01/16/17 19:30 36.3 71 18 126/77 (93) 100 Nasal Cannula 2.0 01/16/17 19:22 78 20 01/16/17 19:22 74 20 100 01/16/17 19:21 124/56 01/16/17 19:17 86 19 100 01/16/17 19:17 86 19 01/16/17 19:15 124/57 01/16/17 19:12 18 01/16/17 19:12 87 18 111/72 01/16/17 19:10 148/62 01/16/17 19:07 89 21 01/16/17 19:07 89 21 100 01/16/17 19:05 112/71 01/16/17 19:03 36.1 90 21 118/66 (92) 100 Nasal Cannula 2 01/16/17 19:02 83 18 100 01/16/17 19:02 83 18 01/16/17 19:01 118/66 01/16/17 18:57 82 20 100 01/16/17 18:57 74 20 01/16/17 18:55 122/56 01/16/17 18:52 72 19 01/16/17 18:52 73 19 100 01/16/17 18:51 121/46 01/16/17 18:47 69 20 01/16/17 18:47 67 20 100 01/16/17 18:46 69 21 01/16/17 18:46 67 21 100 01/16/17 18:45 119/51 01/16/17 18:41 65 20 100 01/16/17 18:41 68 20 01/16/17 18:40 101/50 01/16/17 18:36 72 22 01/16/17 18:36 90 22 95/63 100 01/16/17 18:31 68 19 01/16/17 18:31 68 19 109/40 100 01/16/17 18:31 36.1 69 16 109/40 (77) 100 Mask 10 01/16/17 16:33 36.7 68 16 109/60 (76) 99 Room Air 01/16/17 15:20 Room Air 01/16/17 15:03 36.7 65 18 121/60 (80) 99 Room Air (Monika Gastelum PA-C) Physical Exam General Appearance: no apparent distress, + thin Eyes: sclerae normal ENT: hearing grossly normal Neck: supple, no JVD, trachea midline Respiratory/Chest: lungs clear, normal breath sounds, no respiratory distress, no accessory muscle use Cardiovascular: regular rate, rhythm, no gallop, no murmur Abdomen: normal bowel sounds, non tender, soft Extremities: no pedal edema, no calf tenderness, + pertinent finding (R hip with dressing C/D/I) Neurologic/Psychiatric: alert Skin: normal color, warm/dry (Monika Gastelum, PA-C) Laboratory Results Last 24 Hours Test 01/16/17 19:16 01/16/17 20:40 01/17/17 06:41 01/17/17 08:06 Bedside Glucose 156 mg/dl 187 mg/dl 188 mg/dl White Blood Count 6.68 K/uL Red Blood Count 2.69 M/uL Hemoglobin 8.1 g/dL Hematocrit 24.2 % Mean Corpuscular Volume 90.0 fL Mean Corpuscular Hemoglobin 30.1 pg Mean Corpuscular Hemoglobin Concent 33.5 g/dl RDW Standard Deviation 52.5 fL RDW Coefficient of Variation 16.0 % Platelet Count 165 K/uL Mean Platelet Volume 9.6 fL Sodium Level 137 mmol/L Potassium Level 4.1 mmol/L Chloride Level 107 mmol/L Carbon Dioxide Level 23 mmol/L Anion Gap 7.0 mmol/L Blood Urea Nitrogen 22 mg/dl Creatinine 0.79 mg/dl Est Creatinine Clear Calc Drug Dose 32.1 ml/min Estimated GFR () 80.2 Estimated GFR (Non- 69.2 BUN/Creatinine Ratio 28.0 Random Glucose 190 mg/dl Calcium Level 8.4 mg/dl Test 01/17/17 11:57 Bedside Glucose 240 mg/dl (Monika Gastelum PA-C) Assessment and Plan Ms. Hoyt is an 81 y/o female with PMHx of CAD, DM, AVR, Carotid Stenosis, Anemia, Dementia, and recent supperative parotitis. She suffered a mechanical fall with R intertrochanteric Fx R Intertrochanteric Fx S/P ORIF on 01/17: - Cardiology and Orthopedics following - recommendations reviewed Acute Worsening of Chronic Anemia: - Slightly worse than baseline and transfused 1 unit PRBC on 01/15 and will transfuse x 1 unit today - Monitor for need of further transfusion CAD S/P Pacer: - Metoprolol Succ 25 mg daily DM: - Cover with SSI and add carb coverage Carotid Stenosis: Moderate - STABLE - ASA BID for DVT Prophylaxis per Ortho - Pravastatin 10 mg daily Dementia: - Likely at baseline - forgetful intermittently but follows commands and can recall things DVT Prophylaxis: SCDs; ASA BID Code Status: FULL RESUSCITATION Disposition: - PT/OT evaluations - will need rehab Continued [facility] stay due to: multiple IV medications needed Discharge planning: rehab hospital (Monika Gastelum PA-C) Reviewed: Pt Seen/Exam by Me (Norma Young DO) History No new concerns, remains pleasantly demented. Pain is well controlled. Agree with HPI/ROS as noted. (Norma Young, ) General Appearance: no apparent distress, thin Respiratory: normal breath sounds, no respiratory distress Cardiovascular: normal peripheral pulses, regular rate, rhythm Gastrointestinal: non tender, soft Extremities: non-tender, no pedal edema Neurologic/Psychiatric: alert (to person), other (pleasant, answers yes/no questions) Skin Characteristics: normal color, warm/dry (Norma Young DO) Assessment/Plan Agree with plan as outlined above Pt with R hip fracture s/p mechanical fall s/p OR 01/16 PRBC 01/17 Dementia at baseline, stable (Norma Young DO)
[2017-01-17] MEDS ORDERED: GLUCOSE 10 TABS/TUBE PO PRN (13:15)
[2017-01-17] MEDS ORDERED: GLUCOSE 40% GEL 15 GM TUBE PO PRN (13:15)
[2017-01-17] MEDS ORDERED: DEXTROSE 50% 50 ML SYR IV PRN (13:15)
[2017-01-17] MEDS ORDERED: GLUCAGON FOR INJ 1 MG VIAL SQ PRN (13:15)
[2017-01-17] MEDS: BOOST GLUCOSE CONTROL PO SCH (17:34)
[2017-01-17 18:57] LABS: HEMATOCRIT 29.2 % (37-47); MEAN CELL VOLUME 89.8 fL (80-100); MEAN CORPUSCULAR HEMOGLOBIN 29.2 pg (25-34); MEAN CORPUSCULAR HGB CONC 32.5 g/dl (32-36); PLATELET COUNT 157 K/uL (130-400); RED BLOOD COUNT 3.25 M/uL (4.2-5.4)
[2017-01-17] MEDS: DOCUSATE SODIUM/SENNA 50/8.6MG TAB PO SCH (21:33)
[2017-01-18] MEDS: POLYETHYLENE (MIRALAX) 17 GM PACK PO SCH ×4 (05:58→23:33)
[2017-01-18 06:58] VITALS: BP 114/64; PULSE 74; TEMP 36.4; O2SAT 100
[2017-01-18 07:13] LABS: HEMATOCRIT 27.6 % (37-47); MEAN CELL VOLUME 91.1 fL (80-100); MEAN CORPUSCULAR HEMOGLOBIN 29.4 pg (25-34); MEAN CORPUSCULAR HGB CONC 32.2 g/dl (32-36); MEAN PLATELET VOLUME 10.3 fL (7.4-10.4); PLATELET COUNT 155 K/uL (130-400); RED BLOOD COUNT 3.03 M/uL (4.2-5.4); WHITE BLOOD COUNT 6.13 K/uL (4.8-10.8)
[2017-01-18 07:41] LABS: BUN/CREATININE RATIO 26.6 (10-20); CALCIUM 8.2 mg/dl (8.5-10.1); CREATININE 0.74 mg/dl (0.60-1.20); POTASSIUM 3.9 mmol/L (3.5-5.1)
--- NOTE | 2017-01-18 08:22 | Orthopedic Progress Note ---
Orthopedic Progress Note Date of Service Jan 18, 2017. Subjective Post OP Day: 2 Additional Notes: Pt up to the [facility] with help from staff. Soreness in the operative hip. Objective calves soft nontender, N/V intact, dressing C/D/I, toes mobile Date Time Temp Pulse Resp B/P (MAP) Pulse Ox O2 Delivery O2 Flow Rate FiO2 01/18/17 06:58 36.4 74 17 114/64 (81) 100 Room Air 01/18/17 00:35 Room Air 01/17/17 23:20 36.7 87 16 121/59 (79) 100 Room Air 01/17/17 19:38 85 20 113/59 (77) 100 Room Air 01/17/17 15:45 36.7 82 20 112/68 100 01/17/17 15:25 Room Air 01/17/17 14:45 36.3 77 20 95/57 100 01/17/17 14:15 36.3 84 20 97/53 100 01/17/17 13:35 36.6 79 20 136/73 100 01/17/17 13:29 36.3 83 20 105/65 100 01/17/17 13:12 36.7 92 20 95/61 100 01/17/17 11:55 36.5 76 16 94/52 (66) 100 Room Air Laboratory Results 24 Hours: Test 01/17/17 18:46 01/18/17 06:47 Hematocrit 29.2 % 27.6 % Hemoglobin 9.5 g/dL 8.9 g/dL Assessment & Plan Assessment: POD 2 s/p Right TFN Plan: Follow Hgb. Transfuse as per Med Service Continue PT/OT Planning for [facility] when ready for DC Dressing change today Inhouse Planning Pain Management: Morphine, PO Tylenol, Oxy IR DVT Prophylaxis: TEDs, SCDs, ASA Discharge Planning Discharge Planning: rehab hospital
[2017-01-18] MEDS: BOOST GLUCOSE CONTROL PO SCH ×2 (08:39→19:14)
[2017-01-18] MEDS: ASPIRIN/ALUM/MAGNES/CAL CARB 325 MG TAB PO SCH ×2 (08:39→21:27)
[2017-01-18] MEDS: PRAVASTATIN SOD 10 MG TAB PO SCH (08:39)
[2017-01-18] MEDS: OXYCODONE HCL IR 5 MG TAB (IMMEDIATE RELEASE) PO PRN ×2 (08:39→21:26)
[2017-01-18] MEDS: PANTOprazole SOD 40 MG TAB PO SCH ×2 (08:40→21:26)
[2017-01-18] MEDS: METOPROLOL SUCC 25MG EXT REL TAB PO SCH (08:42)
[2017-01-18] MEDS: INSULIN ASPART 100 UNITS/ML 3 ML PEN SC SCH ×4 (08:47→21:29)
--- NOTE | 2017-01-18 10:24 | CARDIOLOGY PROGRESS NOTE ---
DATE: 01/18/2017 DATE: 01/18/2017 HISTORY OF PRESENT ILLNESS: Ms. Hoyt is an 81-year-old white female who is now postoperative day #2 from a right hip ORIF with intramedullary trochanteric nail. She continues to have some soreness at the surgical site, but is otherwise doing well. She has received 2 units packed red blood cells, but remains anemic with a hemoglobin of 8.9 g/dL. She is otherwise doing well. She denies any chest pain, heaviness, tightness, pressure, or discomfort. She denies any neck, jaw, back, or arm pain. No shortness of breath, dyspnea on exertion, orthopnea, or PND. She denies any palpitations, tachypalpitations, syncope, or near syncope. Her surgical pain overall is reasonably well controlled. PHYSICAL EXAMINATION: VITAL SIGNS: Temperature is 36.4 degrees Celsius, pulse is 74 and regular, respiratory rate is 15 and unlabored, blood pressure is 114/64. SPO2 is 100% on room air. GENERAL: The patient is in no acute distress. HEAD, EYES, EARS, NOSE, AND THROAT: Head is atraumatic, normocephalic. EOMs intact. Sclerae are anicteric. Face is symmetric. No perioral cyanosis. NECK: Without thyromegaly, adenopathy or JVD. Bilateral carotid bruits are present versus transmitted murmur. Carotid upstrokes +2 bilaterally. CHEST AND LUNGS: Clear to auscultation throughout all lung godinez, no wheezes, rales or rhonchi. CARDIOVASCULAR: S1 and S2 are regular, grade 2/6 basal systolic murmur which radiates to the suprasternal notch, bilateral carotids, and left sternal border. Aortic valve closure sound is audible at both the apex and the base. No diastolic murmurs appreciated. No obvious gallops or rubs. ABDOMINAL EXAMINATION: Bowel sounds present. No masses, organomegaly or tenderness. EXTREMITIES: Without cyanosis, clubbing or edema. NEUROLOGIC EXAMINATION: The patient is awake, alert and oriented. Pleasant and cooperative. Answers questions appropriately. LABORATORY DATA: White blood cell count is 6.13. Hemoglobin 8.9 g/dl, hematocrit 27.6%, platelet count 155,000. Sodium is 138 mmol/L, potassium is 3.9 millimoles per liter. BUN is 20 mg/dL. Creatinine is 0.74 mg/dL. Random glucose 131 mg/dL. ASSESSMENT: 1. Postoperative day #2 right hip open reduction and internal fixation with intramedullary trochanteric nail. 2. Acute on chronic anemia, improved post-transfusion x2 units packed red blood cells. 3. History of Aortic Stenosis, status post bioprosthetic aortic valve replacement 2007. 4. Coronary Artery Disease status post coronary artery bypass graft x4 vessels 2007. 5. Type 2 diabetes mellitus. 6. History of hyperparathyroidism status post parathyroidectomy. 7. Gastroesophageal reflux disease. 8. Moderate carotid stenoses. PLAN: 1. The patient remains asymptomatic from a cardiac standpoint. 2. Her anemia has improved following transfusion. She remains asymptomatic with her anemia, and renal function is stable. 3. Continue Toprol-XL 25 mg a day. 4. Continue Pravachol 10 mg daily. 5. Continue Protonix 40 mg b.i.d. for GI protection. 6. Ongoing pain management and DVT prophylaxis as per surgeon. 7. The patient is stable from cardiac standpoint. Anticipate going to a rehabilitation facility on discharge. MTDD
[2017-01-18] MEDS: SODIUM CHLORIDE 0.9% 1000ML 1,000 ML IV SCH ×2 (12:56→23:33)
[2017-01-18 15:00] VITALS: BP 141/62; PULSE 68; TEMP 36.5; O2SAT 100
--- NOTE | 2017-01-18 17:07 | Hospitalist Progress Note ---
Hospitalist Progress Note Date of Service Jan 18, 2017. (Monika Gastelum PA-C) Subjective Pt evaluation today including: conversation w/ patient, conversation w/ family , physical exam, chart review, lab review, review of studies, review of inpatient medication list Patient seen and evaluated. No acute events overnight. Family at bedside. Patient is hemodynamically stable and reporting good pain control. Pain worsens with movement but remains optimistic. Plan for rehab. Will check Hgb in AM. If stable she would be optimal for rehab. Constitutional: No fever, No chills Respiratory: No shortness of breath Cardiovascular: No chest pain, No palpitations Abdomen: No pain, No nausea, No vomiting Musculoskeletal: + joint pain (R hip mostly with movement) Female : No dysuria Heme: No abnormal bleeding/bruising (Monika Gastelum, RUDDYC) Medications Current Inpatient Medications Medications (Trade) Dose Ordered Sig/Minh Route Start Time Stop Time Status Last Admin Dose Admin Metoprolol Succinate (Toprol Xl Tab) 25 mg QAM PO 01/16/17 09:00 02/15/17 08:59 01/18/17 08:42 25 MG Pravastatin Sodium (Pravachol Tab) 10 mg QAM PO 01/16/17 09:00 02/15/17 08:59 01/18/17 08:39 10 MG Pantoprazole Sodium (Protonix Tab) 40 mg BID PO 01/15/17 21:00 02/14/17 20:59 01/18/17 08:40 40 MG Morphine Sulfate (MoRPHine SULFATE INJ) 2 mg Q2H PRN IV 01/15/17 18:30 01/29/17 18:29 Morphine Sulfate (MoRPHine SULFATE INJ) 4 mg Q2H PRN IV 01/15/17 18:30 01/29/17 18:29 Naloxone HCl (Narcan Inj) 0.1 mg PRN PRN IV 01/15/17 18:30 02/14/17 18:29 Senna/Docusate Sodium (Senokot S Tab) 2 tab HS PO 01/15/17 21:00 02/14/17 20:59 01/17/17 21:33 2 TAB Polyethylene (Miralax Powder Packet) 17 gm DAILY PRN PO 01/15/17 18:30 02/14/17 18:29 Bisacodyl (Dulcolax Supp) 10 mg DAILY PRN [place] 01/15/17 18:30 02/14/17 18:29 Sodium Biphosphate/ Sodium Phosphate (Fleet Enema) 132 ml PRN PRN [place] 01/15/17 18:30 01/19/17 18:29 Sodium Chloride 1,000 ml @ 75 mls/hr [id number] IV 01/16/17 19:15 02/15/17 19:14 01/18/17 12:56 75 MLS/HR Ondansetron HCl (Zofran Inj) 4 mg Q6H PRN IV 01/16/17 18:45 02/15/17 18:44 Acetaminophen (Tylenol Tab) 650 mg Q6H PRN PO 01/16/17 18:45 02/15/17 18:44 01/17/17 08:40 650 MG Oxycodone HCl (Roxicodone Immediate Rel Tab) 5 mg Q4H PRN PO 01/16/17 18:45 01/30/17 18:44 01/18/17 08:39 5 MG Aspirin/Aluminum/ Magnesium/Ca Carb (Ascriptin Tab) 325 mg BID PO 01/17/17 09:00 02/16/17 08:59 01/18/17 08:39 325 MG Polyethylene (Miralax Powder Packet) 17 gm Q6 PO 01/18/17 06:00 02/17/17 05:59 01/18/17 12:58 17 GM Magnesium Hydroxide (Milk Of Magnesia Susp) 30 ml DAILY PRN PO 01/16/17 18:45 02/15/17 18:44 Insulin Aspart (novoLOG ASPART) SLIDING SCALE G... ACHS SC 01/16/17 21:00 02/15/17 20:59 01/18/17 13:05 4 UNITS Glucose (Glucose 40% Gel) 15-30 GRAMS 15 GRAMS... UD PRN PO 01/17/17 13:15 02/16/17 13:14 Glucose (Glucose Chew Tab) 4-8 Tablets 4 Tabl... UD PRN PO 01/17/17 13:15 02/16/17 13:14 Dextrose (Dextrose 50% 50ML Syringe) 25-50ML OF 50% DW IV FOR... UD PRN IV 01/17/17 13:15 02/16/17 13:14 Glucagon (Glucagon Inj) 1 mg UD PRN SQ 01/17/17 13:15 02/16/17 13:14 Enteral Nutritional Formula (Boost Glucose Control) 1 can BIDM PO 01/17/17 17:45 02/16/17 17:44 01/18/17 08:39 1 CAN (Monika Gastelum PA-C) Objective Vital Signs Date Time Temp Pulse Resp B/P (MAP) Pulse Ox O2 Delivery O2 Flow Rate FiO2 01/18/17 15:00 36.5 68 20 141/62 (88) 100 Room Air 01/18/17 07:50 Room Air 01/18/17 06:58 36.4 74 17 114/64 (81) 100 Room Air 01/18/17 00:35 Room Air 01/17/17 23:20 36.7 87 16 121/59 (79) 100 Room Air 01/17/17 19:38 85 20 113/59 (77) 100 Room Air (Monika Gastelum PA-C) Physical Exam General Appearance: no apparent distress, + thin Eyes: sclerae normal ENT: hearing grossly normal Respiratory/Chest: lungs clear, normal breath sounds, no respiratory distress, no accessory muscle use Cardiovascular: regular rate, rhythm, no gallop, no murmur Abdomen: normal bowel sounds, non tender, soft Extremities: + pertinent finding (R hip dressing C/D/I) Neurologic/Psychiatric: alert, oriented x 3 Skin: normal color, warm/dry (Monika Gastelum, RUDDYC) Laboratory Results Last 24 Hours Test 01/17/17 17:01 01/17/17 18:46 01/17/17 20:59 01/18/17 06:47 Bedside Glucose 265 mg/dl 242 mg/dl White Blood Count 7.70 K/uL 6.13 K/uL Red Blood Count 3.25 M/uL 3.03 M/uL Hemoglobin 9.5 g/dL 8.9 g/dL Hematocrit 29.2 % 27.6 % Mean Corpuscular Volume 89.8 fL 91.1 fL Mean Corpuscular Hemoglobin 29.2 pg 29.4 pg Mean Corpuscular Hemoglobin Concent 32.5 g/dl 32.2 g/dl RDW Standard Deviation 51.5 fL 54.1 fL RDW Coefficient of Variation 15.9 % 16.2 % Platelet Count 157 K/uL 155 K/uL Mean Platelet Volume 10.0 fL 10.3 fL Sodium Level 138 mmol/L Potassium Level 3.9 mmol/L Chloride Level 109 mmol/L Carbon Dioxide Level 24 mmol/L Anion Gap 5.0 mmol/L Blood Urea Nitrogen 20 mg/dl Creatinine 0.74 mg/dl Est Creatinine Clear Calc Drug Dose 45.6 ml/min Estimated GFR () 86.8 Estimated GFR (Non- 74.9 BUN/Creatinine Ratio 26.6 Random Glucose 131 mg/dl Calcium Level 8.2 mg/dl Test 01/18/17 08:06 01/18/17 11:00 01/18/17 12:11 Bedside Glucose 190 mg/dl 208 mg/dl Stool Occult Blood NEGATIVE (Monika Gastelum, ABILIO) Assessment and Plan Ms. Hoyt is an 81 y/o female with PMHx of CAD, DM, AVR, Carotid Stenosis, Anemia, Dementia, and recent supperative parotitis. She suffered a mechanical fall with R intertrochanteric Fx R Intertrochanteric Fx S/P ORIF on 01/17: - Cardiology and Orthopedics following - recommendations reviewed -- Stable from cardiac standpoint Acute Worsening of Chronic Anemia: IMPROVING - Slightly worse than baseline and transfused 2 unit PRBC total on 01/15 and 01/17 - Monitor for need of further transfusion CAD S/P Pacer: - Metoprolol Succ 25 mg daily DM: - Cover with SSI with carb coverage Carotid Stenosis: Moderate - STABLE - ASA BID for DVT Prophylaxis per Ortho - Pravastatin 10 mg daily Dementia: - Likely at baseline - forgetful intermittently but follows commands and can recall things DVT Prophylaxis: SCDs; ASA BID Code Status: FULL RESUSCITATION Disposition: - [facility] vs [facility] - if Hgb stable in AM she would be optimal for D/C to rehab with CBC recheck in 2-3 days Continued [facility] stay due to: ambulation difficulties Discharge planning: rehab hospital (vs SNF) (Monika Gastelum PA-C) Reviewed: Pt Seen/Exam by Me (Norma Young DO) History Pt is stable s/p OR. Tolerating PO. No concerns. Agree with HPI/ROS as noted. (Norma Young DO) General Appearance: no apparent distress, thin Respiratory: normal breath sounds, no respiratory distress Cardiovascular: normal peripheral pulses, regular rate, rhythm Gastrointestinal: non tender, soft Extremities: non-tender, no pedal edema Neurologic/Psychiatric: alert (to person, easily confused and needs redirected at times) Skin Characteristics: normal color, warm/dry (Norma Young DO) Assessment/Plan Agree with plan as outlined above Pt with R hip fracture s/p mechanical fall s/p OR 01/16 PRBC 01/17 Dementia at baseline, stable Awaiting auth for placement rehab (Norma Young DO)
[2017-01-18] MEDS: DOCUSATE SODIUM/SENNA 50/8.6MG TAB PO SCH (21:27)
[2017-01-18 23:00] VITALS: BP_SYST 104; BP_SYST 93; BP_DIAS 56; BP_DIAS 64; PULSE 68; TEMP 36.7; O2SAT 100
[2017-01-19 01:34] LABS: BASO % 0.3 %; BASO ABS # 0.02 K/uL (0-0.2); EOS % 1.3 %; HEMATOCRIT 27.9 % (37-47); IG% 0.6 %; LYMPH % 15.7 %; LYMPH ABS # 1.08 K/uL (1.2-3.4); MEAN CELL VOLUME 91.2 fL (80-100); MEAN CORPUSCULAR HEMOGLOBIN 28.1 pg (25-34); MEAN CORPUSCULAR HGB CONC 30.8 g/dl (32-36); MEAN PLATELET VOLUME 10.3 fL (7.4-10.4); MONO % 8.4 %; NEUT % 73.7 %; PLATELET COUNT 168 K/uL (130-400); RED BLOOD COUNT 3.06 M/uL (4.2-5.4); WHITE BLOOD COUNT 6.87 K/uL (4.8-10.8)
[2017-01-19 02:56] LABS: COMPLETE YES; ECHINOCYTES 1+; POLYCHROMASIA 1+
[2017-01-19] MEDS: POLYETHYLENE (MIRALAX) 17 GM PACK PO SCH ×4 (06:01→23:44)
[2017-01-19 07:15] VITALS: BP 112/54; PULSE 62; TEMP 36.7; O2SAT 100
--- NOTE | 2017-01-19 07:27 | Orthopedic Progress Note ---
Orthopedic Progress Note Date of Service Jan 19, 2017. Subjective Post OP Day: 3 Reports: feeling well Additional Notes: Pt states hip bothers her with moving around but otherwise pain is controlled at rest. Objective calves soft nontender, N/V intact, toes mobile Incision has mild serous drainage. Minimal drainage noted on dressing. Date Time Temp Pulse Resp B/P (MAP) Pulse Ox O2 Delivery O2 Flow Rate FiO2 01/19/17 00:00 Room Air 01/18/17 23:00 36.7 68 16 93/56 (68) 100 Room Air 104/64 (77) 01/18/17 15:05 Room Air 01/18/17 15:00 36.5 68 20 141/62 (88) 100 Room Air 01/18/17 07:50 Room Air Laboratory Results 24 Hours: Test 01/19/17 01:26 01/19/17 04:44 White Blood Count 6.87 K/uL Red Blood Count 3.06 M/uL Hemoglobin 8.6 g/dL Hematocrit 27.9 % Mean Corpuscular Volume 91.2 fL Mean Corpuscular Hemoglobin 28.1 pg Mean Corpuscular Hemoglobin Concent 30.8 g/dl Platelet Count 168 K/uL Mean Platelet Volume 10.3 fL Neutrophils (%) (Auto) 73.7 % Lymphocytes (%) (Auto) 15.7 % Monocytes (%) (Auto) 8.4 % Eosinophils (%) (Auto) 1.3 % Basophils (%) (Auto) 0.3 % Neutrophils # (Auto) 5.06 K/uL Lymphocytes # (Auto) 1.08 K/uL Monocytes # (Auto) 0.58 K/uL Eosinophils # (Auto) 0.09 K/uL Basophils # (Auto) 0.02 K/uL Assessment & Plan Assessment: POD 3 s/p Right TFN Plan: Follow Hgb. Transfuse as per Med Service Continue PT/OT Planning for [facility] when ready for DC Ortho will sign off for now. Please call with any questions. DC instructions in EMR. Inhouse Planning Pain Management: Morphine, PO Tylenol, Oxy IR DVT Prophylaxis: TEDs, SCDs, ASA Discharge Planning Discharge Planning: rehab hospital
--- NOTE | 2017-01-19 07:30 | Consultant Recommendations ---
Apartment Leasing Specialist Recommendations Date of Service Jan 19, 2017. Apartment Leasing Specialist Recommendations [facility] DISCHARGE INSTRUCTIONS: HIP FRACTURE SELF CARE INSTRUCTIONS: A. You are to ambulate with a walker or crutches for approximately 6 weeks. B. You are WEIGHT BEARING TOLERATED on your operative lower extremity for at least 6 weeks. C. Wear low heeled shoes with non-slip soles D. Be sure that your floors are free of things that could trip you throw rugs, electrical cords, and small objects. Avoid wet and waxed floors, especially with crutches/walker/cane. E. Try to walk several times a day with rest periods between. F. You may shower 48 hours after surgery and get the incision area wet, but DO NOT soak or submerge incision area in water. (No baths, swimming pools, hot tubs ) G. Change your dressing daily if it continues to drain. This may occur for up to 1 week. You may leave the wound to the open air if dry. H. Do NOT apply soap or any ointment/lotions directly over incision. I. You may use ice as needed to operative site. SPECIAL CARE INSTRUCTIONS: VERY IMPORTANT TO READ AND REVIEW A. You may be at risk for phlebitis or blood clots. a. Wear surgical stockings (NAGI hose) for 2 weeks after surgery to improve circulation and reduce swelling. b. Take ASPIRIN 325 mg twice daily for 4 weeks or as directed. This is your blood thinner. c. If you are on Coumadin- you will have daily/weekly blood work to monitor your levels. This will be done by either your family physician/ cognos analyst (if you are on Coumadin chronically) versus your orthopedic surgeon. Expect a phone call the day of or the day after your blood work is drawn to adjust your dose accordingly. B. There are a few signs you need to watch for after you are home. Call [facility] at [phone] if you experience any of the following: a. If you have a temperature of 101 degrees or higher. b. Sudden increase in pain in your hip not relieved by rest or pain medication. c. Any fluid or drainage from the incision; redness of the incision. d. Shortness of breath or chest pain. B. Please call [facility] at [phone] if you have any questions or concerns about your operation or recovery. C. Call your physician if: a. Temperature is greater than 101 degrees (F). b. Pain is not relieved by prescribed pain medications. c. Increase drainage or redness from incision. d. Unanswered questions or concerns. D. Pain Medication: a. You will be prescribed pain medication upon discharge that should last till your first post-operative appointment. b. If you experience nausea and/or skin rash, discontinue this medication and contact our office for an alternative medication. c. Caution- narcotic pain medication can cause constipation. FOLLOW UP VISIT: Please call [facility] at [phone] to schedule a follow up appointment 10-14 days from the date of your surgery date.
[2017-01-19] MEDS: BOOST GLUCOSE CONTROL PO SCH ×2 (08:11→18:11)
[2017-01-19 08:45] LABS: HEMATOCRIT 27.3 % (37-47); MEAN CELL VOLUME 91.3 fL (80-100); MEAN CORPUSCULAR HEMOGLOBIN 29.8 pg (25-34); MEAN CORPUSCULAR HGB CONC 32.6 g/dl (32-36); MEAN PLATELET VOLUME 10.3 fL (7.4-10.4); PLATELET COUNT 159 K/uL (130-400); RED BLOOD COUNT 2.99 M/uL (4.2-5.4); WHITE BLOOD COUNT 6.91 K/uL (4.8-10.8)
[2017-01-19] MEDS: ASPIRIN/ALUM/MAGNES/CAL CARB 325 MG TAB PO SCH ×2 (09:05→20:50)
[2017-01-19] MEDS: METOPROLOL SUCC 25MG EXT REL TAB PO SCH (09:05)
[2017-01-19] MEDS: PANTOprazole SOD 40 MG TAB PO SCH ×2 (09:05→20:49)
[2017-01-19] MEDS ORDERED: FoLIC ACID TAB 400 MCG TAB PO ONE (09:08)
[2017-01-19 09:17] LABS: BUN/CREATININE RATIO 25.1 (10-20); CALCIUM 8.2 mg/dl (8.5-10.1); CREATININE 0.65 mg/dl (0.60-1.20); POTASSIUM 4.2 mmol/L (3.5-5.1)
[2017-01-19] MEDS: INSULIN ASPART 100 UNITS/ML 3 ML PEN SC SCH ×4 (09:31→20:53)
[2017-01-19] MEDS: PRAVASTATIN SOD 10 MG TAB PO SCH (09:43)
[2017-01-19] MEDS: ACETAMINOPHEN 325 MG TAB PO PRN (09:45)
--- NOTE | 2017-01-19 10:08 | Hospitalist Progress Note ---
Hospitalist Progress Note Date of Service Jan 19, 2017. (Monika Gastelum PA-C) Subjective Pt evaluation today including: conversation w/ patient, physical exam, chart review, lab review, review of studies, review of inpatient medication list Patient seen and evaluated. No acute events overnight. Reporting more pain in her leg today but is controlled with medications. Feels like she needs to void but at this point cannot. Is incontinent at times. Reporting pressure in bladder but no pain. When voids no dysuria. Will bladder scan and obtain UA for further evaluation. Hemoglobin is stable at 8.9 and will repeat this afternoon. Baseline is 10s. Vitals stable. Constitutional: No fever, No chills Respiratory: No shortness of breath Cardiovascular: No chest pain, No palpitations Abdomen: No pain, No nausea, No vomiting, No diarrhea, No constipation Musculoskeletal: + joint pain (R hip) Female : + problem reported (feelings of need to void but unable), No dysuria Neurologic: No numbness/tingling (R leg) Heme: No abnormal bleeding/bruising (Monika Gastelum, RUDDYC) Medications Current Inpatient Medications Medications (Trade) Dose Ordered Sig/Minh Route Start Time Stop Time Status Last Admin Dose Admin Metoprolol Succinate (Toprol Xl Tab) 25 mg QAM PO 01/16/17 09:00 02/15/17 08:59 01/19/17 09:05 25 MG Pravastatin Sodium (Pravachol Tab) 10 mg QAM PO 01/16/17 09:00 02/15/17 08:59 01/19/17 09:43 10 MG Pantoprazole Sodium (Protonix Tab) 40 mg BID PO 01/15/17 21:00 02/14/17 20:59 01/19/17 09:05 40 MG Morphine Sulfate (MoRPHine SULFATE INJ) 2 mg Q2H PRN IV 01/15/17 18:30 01/29/17 18:29 Morphine Sulfate (MoRPHine SULFATE INJ) 4 mg Q2H PRN IV 01/15/17 18:30 01/29/17 18:29 Naloxone HCl (Narcan Inj) 0.1 mg PRN PRN IV 01/15/17 18:30 02/14/17 18:29 Senna/Docusate Sodium (Senokot S Tab) 2 tab HS PO 01/15/17 21:00 02/14/17 20:59 01/18/17 21:27 2 TAB Polyethylene (Miralax Powder Packet) 17 gm DAILY PRN PO 01/15/17 18:30 02/14/17 18:29 Bisacodyl (Dulcolax Supp) 10 mg DAILY PRN [place] 01/15/17 18:30 02/14/17 18:29 Sodium Biphosphate/ Sodium Phosphate (Fleet Enema) 132 ml PRN PRN [place] 01/15/17 18:30 01/19/17 18:29 Sodium Chloride 1,000 ml @ 75 mls/hr [id number] IV 01/16/17 19:15 02/15/17 19:14 01/18/17 23:33 75 MLS/HR Ondansetron HCl (Zofran Inj) 4 mg Q6H PRN IV 01/16/17 18:45 02/15/17 18:44 Acetaminophen (Tylenol Tab) 650 mg Q6H PRN PO 01/16/17 18:45 02/15/17 18:44 01/19/17 09:45 650 MG Oxycodone HCl (Roxicodone Immediate Rel Tab) 5 mg Q4H PRN PO 01/16/17 18:45 01/30/17 18:44 01/18/17 21:26 5 MG Aspirin/Aluminum/ Magnesium/Ca Carb (Ascriptin Tab) 325 mg BID PO 01/17/17 09:00 02/16/17 08:59 01/19/17 09:05 325 MG Polyethylene (Miralax Powder Packet) 17 gm Q6 PO 01/18/17 06:00 02/17/17 05:59 01/19/17 06:01 17 GM Magnesium Hydroxide (Milk Of Magnesia Susp) 30 ml DAILY PRN PO 01/16/17 18:45 02/15/17 18:44 Insulin Aspart (novoLOG ASPART) SLIDING SCALE G... ACHS SC 01/16/17 21:00 02/15/17 20:59 01/19/17 09:31 3 UNITS Glucose (Glucose 40% Gel) 15-30 GRAMS 15 GRAMS... UD PRN PO 01/17/17 13:15 02/16/17 13:14 Glucose (Glucose Chew Tab) 4-8 Tablets 4 Tabl... UD PRN PO 01/17/17 13:15 02/16/17 13:14 Dextrose (Dextrose 50% 50ML Syringe) 25-50ML OF 50% DW IV FOR... UD PRN IV 01/17/17 13:15 02/16/17 13:14 Glucagon (Glucagon Inj) 1 mg UD PRN SQ 01/17/17 13:15 02/16/17 13:14 Enteral Nutritional Formula (Boost Glucose Control) 1 can BIDM PO 01/17/17 17:45 02/16/17 17:44 01/19/17 08:11 1 CAN Folic Acid (Folvite Tab) 400 mcg QAM PO 01/20/17 09:00 02/19/17 08:59 (Monika Gastelum PA-C) Objective Vital Signs Date Time Temp Pulse Resp B/P (MAP) Pulse Ox O2 Delivery O2 Flow Rate FiO2 01/19/17 07:15 36.7 62 15 112/54 (73) 100 Room Air 01/19/17 00:00 Room Air 01/18/17 23:00 36.7 68 16 93/56 (68) 100 Room Air 104/64 (77) 01/18/17 15:05 Room Air 01/18/17 15:00 36.5 68 20 141/62 (88) 100 Room Air (Monika Gastelum PA-C) Physical Exam General Appearance: no apparent distress, + thin Eyes: sclerae normal ENT: hearing grossly normal Neck: supple, no JVD, trachea midline Respiratory/Chest: lungs clear, normal breath sounds, no respiratory distress, no accessory muscle use Cardiovascular: regular rate, rhythm, no gallop, no murmur Abdomen: normal bowel sounds, non tender, soft Extremities: no pedal edema, no calf tenderness, + pertinent finding (dressing C/D/I) Neurologic/Psychiatric: alert, oriented x 3 Skin: normal color, warm/dry (Monika Gastelum PA-C) Laboratory Results Last 24 Hours Test 01/18/17 11:00 01/18/17 12:11 01/18/17 17:01 01/18/17 21:05 Stool Occult Blood NEGATIVE Bedside Glucose 208 mg/dl 181 mg/dl 221 mg/dl Test 01/19/17 01:26 01/19/17 08:18 01/19/17 08:24 White Blood Count 6.87 K/uL 6.91 K/uL Red Blood Count 3.06 M/uL 2.99 M/uL Hemoglobin 8.6 g/dL 8.9 g/dL Hematocrit 27.9 % 27.3 % Mean Corpuscular Volume 91.2 fL 91.3 fL Mean Corpuscular Hemoglobin 28.1 pg 29.8 pg Mean Corpuscular Hemoglobin Concent 30.8 g/dl 32.6 g/dl Platelet Count 168 K/uL 159 K/uL Mean Platelet Volume 10.3 fL 10.3 fL Neutrophils (%) (Auto) 73.7 % Lymphocytes (%) (Auto) 15.7 % Monocytes (%) (Auto) 8.4 % Eosinophils (%) (Auto) 1.3 % Basophils (%) (Auto) 0.3 % Neutrophils # (Auto) 5.06 K/uL Lymphocytes # (Auto) 1.08 K/uL Monocytes # (Auto) 0.58 K/uL Eosinophils # (Auto) 0.09 K/uL Basophils # (Auto) 0.02 K/uL RDW Standard Deviation 53.8 fL 53.6 fL RDW Coefficient of Variation 16.3 % 16.5 % Immature Granulocyte % (Auto) 0.6 % Immature Granulocyte # (Auto) 0.04 K/uL Polychromasia 1+ Echinocytes 1+ Bedside Glucose 151 mg/dl Sodium Level 138 mmol/L Potassium Level 4.2 mmol/L Chloride Level 108 mmol/L Carbon Dioxide Level 24 mmol/L Anion Gap 6.0 mmol/L Blood Urea Nitrogen 16 mg/dl Creatinine 0.65 mg/dl Est Creatinine Clear Calc Drug Dose 51.9 ml/min Estimated GFR () 95.2 Estimated GFR (Non- 82.1 BUN/Creatinine Ratio 25.1 Random Glucose 154 mg/dl Calcium Level 8.2 mg/dl (Monika Gastelum, PANickC) Assessment and Plan Ms. Hoyt is an 81 y/o female with PMHx of CAD, DM, AVR, Carotid Stenosis, Anemia, Dementia, and recent supperative parotitis. She suffered a mechanical fall with R intertrochanteric Fx R Intertrochanteric Fx S/P ORIF on 01/17: - Cardiology and Orthopedics following - recommendations reviewed -- Stable from cardiac standpoint Acute Worsening of Chronic Anemia: IMPROVING - Slightly worse than baseline and transfused 2 unit PRBC total on 01/15 and 01/17 - Hemoglobin at 8.9 she is asymptomatic and vitals stable - will repeat in afternoon CAD S/P Pacer: - Metoprolol Succ 25 mg daily DM: - Cover with SSI with carb coverage Carotid Stenosis: Moderate - STABLE - ASA BID for DVT Prophylaxis per Ortho - Pravastatin 10 mg daily Dementia: - Likely at baseline - forgetful intermittently but follows commands and can recall things DVT Prophylaxis: SCDs; ASA BID Code Status: FULL RESUSCITATION Disposition: - [facility] vs [facility] - if Hgb remains stable she would be optimal for D/C to rehab with CBC recheck in 2-3 days Continued [facility] stay due to: ambulation difficulties Discharge planning: rehab hospital (Monika Gastelum, PA-C) I examined patient and confirmed above history with patient. General Appearance: no apparent distress, + thin Eyes: sclerae normal ENT: hearing grossly normal Neck: supple, no JVD, trachea midline Respiratory/Chest: lungs clear, normal breath sounds, no respiratory distress, no accessory muscle use Cardiovascular: regular rate, rhythm, no gallop, no murmur Abdomen: normal bowel sounds, non tender, soft Extremities: no pedal edema, no calf tenderness, + pertinent finding (dressing C/D/I) Neurologic/Psychiatric: alert, oriented x 3 Skin: normal color, warm/dry I agree with assessment and plan after discussing with APC (Davidson Abbott M.D.)
[2017-01-19 11:45] LABS: URINE APPEARANCE CLEAR (CLEAR); URINE BILIRUBIN NEG (NEG); URINE COLOR DK YELLOW; URINE NITRITE NEG (NEG); UROBILINOGEN NEG (NEG); ZZURINE CULT IF INDIC CATH NO
[2017-01-19 11:56] LABS: MANUAL MICROSCOPIC REQUIRED? NO; REVIEW REQ? NO
[2017-01-19] MEDS: SODIUM CHLORIDE 0.9% 1000ML 1,000 ML IV SCH (12:28)
[2017-01-19 14:21] LABS: HEMATOCRIT 28.2 % (37-47)
[2017-01-19 15:00] VITALS: BP 91/52; PULSE 60; TEMP 36.5; O2SAT 98
[2017-01-19] MEDS: DOCUSATE SODIUM/SENNA 50/8.6MG TAB PO SCH (20:50)
[2017-01-19 23:05] VITALS: BP_SYST 111; BP_DIAS 39; BP_DIAS 52; PULSE 65; TEMP 36.4; O2SAT 99
[2017-01-20] MEDS: SODIUM CHLORIDE 0.9% 1000ML 1,000 ML IV SCH (01:45)
[2017-01-20] MEDS ORDERED: NURSING VERBAL MED ORDER ONE (02:15)
[2017-01-20 07:28] VITALS: BP 91/40; PULSE 62; TEMP 36.8; O2SAT 96
[2017-01-20 08:57] LABS: MEAN CELL VOLUME 93.5 fL (80-100); MEAN CORPUSCULAR HEMOGLOBIN 29.7 pg (25-34); MEAN CORPUSCULAR HGB CONC 31.7 g/dl (32-36); MEAN PLATELET VOLUME 10.1 fL (7.4-10.4); PLATELET COUNT 197 K/uL (130-400); WHITE BLOOD COUNT 8.63 K/uL (4.8-10.8)
[2017-01-20 09:24] LABS: BUN/CREATININE RATIO 22.5 (10-20); CALCIUM 8.1 mg/dl (8.5-10.1); CREATININE 0.79 mg/dl (0.60-1.20); POTASSIUM 4.4 mmol/L (3.5-5.1)
[2017-01-20] MEDS: ASPIRIN/ALUM/MAGNES/CAL CARB 325 MG TAB PO SCH ×2 (09:36→20:57)
[2017-01-20] MEDS: BOOST GLUCOSE CONTROL PO SCH ×2 (09:36→19:23)
[2017-01-20] MEDS: PRAVASTATIN SOD 10 MG TAB PO SCH (09:37)
[2017-01-20] MEDS: PANTOprazole SOD 40 MG TAB PO SCH ×2 (09:37→20:57)
[2017-01-20] MEDS: FoLIC ACID TAB 400 MCG TAB PO SCH (09:37)
[2017-01-20] MEDS: METOPROLOL SUCC 25MG EXT REL TAB PO SCH (09:37)
[2017-01-20] MEDS: INSULIN ASPART 100 UNITS/ML 3 ML PEN SC SCH ×4 (09:40→20:55)
--- NOTE | 2017-01-20 12:41 | Hospitalist Progress Note ---
Hospitalist Progress Note Date of Service Jan 20, 2017. (Trish Smith CRNP) Subjective Pt evaluation today including: conversation w/ patient, conversation w/ family , physical exam, chart review, lab review, review of inpatient medication list Voiding: incontinence Constitutional: No fever, No chills, No sweats Respiratory: No cough, No wheezing, No shortness of breath Cardiovascular: No chest pain, No edema Abdomen: No pain, No nausea Musculoskeletal: No joint pain Neurologic: + memory loss Heme: + problem reported, No abnormal bleeding/bruising Endo: No problem reported All Other Systems: Reviewed and Negative (Trish Smith CRNP) Medications Medications (Trade) Dose Ordered Sig/Minh Route Start Time Stop Time Status Last Admin Dose Admin Folic Acid (Folvite Tab) 400 mcg QAM PO 01/20/17 09:00 02/19/17 08:59 01/20/17 09:37 400 MCG (Trish Smith CRNP) Objective Vital Signs Date Time Temp Pulse Resp B/P (MAP) Pulse Ox O2 Delivery O2 Flow Rate FiO2 01/20/17 07:28 36.8 62 16 91/40 (57) 96 Room Air 01/20/17 07:15 Room Air 01/20/17 00:15 Room Air 01/19/17 23:05 36.4 65 16 111/39 (63) 99 Room Air 111/52 (71) 01/19/17 15:45 Room Air 01/19/17 15:00 36.5 60 18 91/52 (65) 98 Room Air (Trish Smith CRNP) Physical Exam General Appearance: no apparent distress Eyes: normal inspection, sclerae normal Respiratory/Chest: chest non-tender, lungs clear, normal breath sounds, no respiratory distress, no accessory muscle use Cardiovascular: regular rate, rhythm, no edema, no gallop, no murmur Abdomen: normal bowel sounds, non tender, soft, + pertinent finding (no suprapubic pain ) Extremities: non-tender (denies pain in hip while seated in chair), no pedal edema, + pertinent finding (incision well approximated, moi intact, no drainage. ) Neurologic/Psychiatric: alert, normal mood/affect, + disoriented (oriented to person and place) Skin: normal color, warm/dry (Trish Smith ALONZO) Laboratory Results 01/20/17 08:44 01/20/17 08:44 Test 01/15/17 14:02 01/15/17 15:19 01/16/17 06:02 01/18/17 11:00 Prothrombin Time 11.8 SECONDS (9.0-12.0) Prothromb Time International Ratio 1.1 (0.9-1.1) Activated Partial Thromboplast Time 22.9 SECONDS (21.0-31.0) Partial Thromboplastin Ratio 0.9 Iron Level 33 mcg/dl (35-150) Total Iron Binding Capacity 218 mcg/dl (250-450) Red Blood Cell Morphology Unremarkable Magnesium Level 1.8 mg/dl (1.8-2.4) Stool Occult Blood NEGATIVE (NEGATIVE) Test 01/19/17 01:26 01/19/17 11:15 01/20/17 08:10 01/20/17 08:44 Immature Granulocyte % (Auto) 0.6 % White Blood Count 6.87 K/uL (4.8-10.8) Red Blood Count 3.06 M/uL (4.2-5.4) 3.10 M/uL (4.2-5.4) Hemoglobin 8.6 g/dL (12.0-16.0) Hematocrit 27.9 % (37-47) Mean Corpuscular Volume 91.2 fL (80-100) 93.5 fL (80-100) Mean Corpuscular Hemoglobin 28.1 pg (25-34) 29.7 pg (25-34) Mean Corpuscular Hemoglobin Concent 30.8 g/dl (32-36) 31.7 g/dl (32-36) Platelet Count 168 K/uL (130-400) Mean Platelet Volume 10.3 fL (7.4-10.4) 10.1 fL (7.4-10.4) Neutrophils (%) (Auto) 73.7 % Lymphocytes (%) (Auto) 15.7 % Monocytes (%) (Auto) 8.4 % Eosinophils (%) (Auto) 1.3 % Basophils (%) (Auto) 0.3 % Neutrophils # (Auto) 5.06 K/uL (1.4-6.5) Lymphocytes # (Auto) 1.08 K/uL (1.2-3.4) Monocytes # (Auto) 0.58 K/uL (0.11-0.59) Eosinophils # (Auto) 0.09 K/uL (0-0.5) Basophils # (Auto) 0.02 K/uL (0-0.2) Immature Granulocyte # (Auto) 0.04 K/uL (0.00-0.02) Polychromasia 1+ Echinocytes 1+ Urine Color DK YELLOW Urine Appearance CLEAR (CLEAR) Urine pH 5.0 (4.5-7.5) Urine Specific [place] 1.020 (1.000-1.030) Urine Protein NEG (NEG) Urine Glucose (UA) TRACE (NEG) Urine Ketones NEG (NEG) Urine Occult Blood NEG (NEG) Urine Nitrite NEG (NEG) Urine Bilirubin NEG (NEG) Urine Urobilinogen NEG (NEG) Urine Leukocyte Esterase TRACE (NEG) Urine WBC (Auto) 1-5 /hpf (0-5) Urine RBC (Auto) 0-4 /hpf (0-4) Urine Hyaline Casts (Auto) 1-5 /lpf (0-5) Urine Epithelial Cells (Auto) 10-20 /lpf (0-5) Urine Bacteria (Auto) NEG (NEG) Bedside Glucose 134 mg/dl (70-90) RDW Standard Deviation 56.8 fL (36.4-46.3) RDW Coefficient of Variation 17.1 % (11.5-14.5) Anion Gap 5.0 mmol/L (3-11) Est Creatinine Clear Calc Drug Dose 42.7 ml/min Estimated GFR () 80.2 Estimated GFR (Non- 69.2 BUN/Creatinine Ratio 22.5 (10-20) Calcium Level 8.1 mg/dl (8.5-10.1) Date/Time Source Procedure Growth Status 01/15/17 19:47 Nasal MRSA DNA Surveillance Screen - Final Specimen Negative for MRSA by DNA Probe Complete 24 Hours Test 01/19/17 12:20 01/19/17 14:10 01/19/17 16:52 01/19/17 20:44 Bedside Glucose 196 mg/dl 247 mg/dl 180 mg/dl Hemoglobin 8.8 g/dL Last Hematocrit 28.2 % Test 01/20/17 08:10 01/20/17 08:44 Bedside Glucose 134 mg/dl White Blood Count 8.63 K/uL Red Blood Count 3.10 M/uL Hemoglobin 9.2 g/dL Hematocrit 29.0 % Mean Corpuscular Volume 93.5 fL Mean Corpuscular Hemoglobin 29.7 pg Mean Corpuscular Hemoglobin Concent 31.7 g/dl RDW Standard Deviation 56.8 fL RDW Coefficient of Variation 17.1 % Platelet Count 197 K/uL Mean Platelet Volume 10.1 fL Sodium Level 139 mmol/L Potassium Level 4.4 mmol/L Chloride Level 108 mmol/L Carbon Dioxide Level 26 mmol/L Anion Gap 5.0 mmol/L Blood Urea Nitrogen 18 mg/dl Creatinine 0.79 mg/dl Est Creatinine Clear Calc Drug Dose 42.7 ml/min Estimated GFR () 80.2 Estimated GFR (Non- 69.2 BUN/Creatinine Ratio 22.5 Random Glucose 139 mg/dl Calcium Level 8.1 mg/dl (Trish Smith CRNP) Assessment and Plan (1) Anemia Assessment & Plan: H&H improving. No need for further transfusion at this time as hemoglobin is 9.5. No transfusions since 01/17. No s/s of bleeding. Fecal occult negative. (2) Intertrochanteric fracture of right hip Assessment & Plan: Orthopedics has signed off. Continue PT/OT. To [facility] on discharge for rehab (3) Diabetes Assessment & Plan: Blood sugars have been elevated, ranging into the low 200s. HgbA1c ordered and correction factor on insulin sliding scale lowered from 40 to 30 with CHO coverage 1:12. Continue accuchecks. Will transition back to Humalin 70/30 pending A1c (4) Voiding difficulty Assessment & Plan: Per nursing patient had some voiding difficulty yesterday which prompted a u/a which showed only trace leukocyte esterase, no reflex to culture. Order given to bladder scan and straight cath if retaining over 350 ml. DVT prophylaxis: SCDs and patient is increasing ambulation. No chemical prophylaxis due to anemia requiring transfusion. Continued [facility] stay due to: other (evaluating for discharge to rehab) Discharge planning: rehab hospital (Trish Smith CRNP) I reviewed note. Discussed with ELECTION ASSISTANT. Examined patient General Appearance: no apparent distress Eyes: normal inspection, sclerae normal Respiratory/Chest: chest non-tender, lungs clear, normal breath sounds, no respiratory distress, no accessory muscle use Cardiovascular: regular rate, rhythm, no edema, no gallop, no murmur Abdomen: normal bowel sounds, non tender, soft, + pertinent finding (no suprapubic pain ) Extremities: non-tender (denies pain in hip while seated in chair), no pedal edema, + pertinent finding (incision well approximated, moi intact, no drainage. ) Neurologic/Psychiatric: alert, normal mood/affect, + disoriented (oriented to person and place) Skin: normal color, warm/dry I agree with A/P. (Davidson Abbott M.D.) Problem Qualifiers (1) Intertrochanteric fracture of right hip: Fracture healing: with routine healing
[2017-01-20 12:50] LABS: ESTIMATED AVERAGE GLUCOSE 183 mg/dl; HA1C FLAG Normal (Normal)
[2017-01-20] MEDS: OXYCODONE HCL IR 5 MG TAB (IMMEDIATE RELEASE) PO PRN ×2 (13:29→19:22)
[2017-01-20 13:56] VITALS: BP 110/56
[2017-01-20 16:00] VITALS: BP 100/45; PULSE 68; TEMP 37; O2SAT 100
[2017-01-20] MEDS: DOCUSATE SODIUM/SENNA 50/8.6MG TAB PO SCH (20:57)
[2017-01-20] MEDS: ACETAMINOPHEN 325 MG TAB PO PRN (20:57)
[2017-01-20 22:38] VITALS: BP 92/56; PULSE 63; TEMP 36.7; O2SAT 95
[2017-01-21 07:35] VITALS: BP 94/44; PULSE 63; TEMP 36.7; O2SAT 94
[2017-01-21] MEDS: METOPROLOL SUCC 25MG EXT REL TAB PO SCH (09:00)
[2017-01-21] MEDS: ASPIRIN/ALUM/MAGNES/CAL CARB 325 MG TAB PO SCH ×2 (09:30→19:38)
[2017-01-21] MEDS: PANTOprazole SOD 40 MG TAB PO SCH ×2 (09:31→19:38)
[2017-01-21] MEDS: FoLIC ACID TAB 400 MCG TAB PO SCH (09:31)
[2017-01-21] MEDS: PRAVASTATIN SOD 10 MG TAB PO SCH (09:31)
[2017-01-21] MEDS: BOOST GLUCOSE CONTROL PO SCH ×2 (09:31→18:38)
[2017-01-21] MEDS: INSULIN ASPART 100 UNITS/ML 3 ML PEN SC SCH ×4 (09:34→21:13)
[2017-01-21 09:45] LABS: HEMATOCRIT 29.1 % (37-47); MEAN CELL VOLUME 93.9 fL (80-100); MEAN CORPUSCULAR HEMOGLOBIN 29.4 pg (25-34); MEAN CORPUSCULAR HGB CONC 31.3 g/dl (32-36); MEAN PLATELET VOLUME 10.4 fL (7.4-10.4); PLATELET COUNT 191 K/uL (130-400); WHITE BLOOD COUNT 7.13 K/uL (4.8-10.8)
[2017-01-21 15:00] VITALS: BP 95/53; PULSE 75; TEMP 36.8; O2SAT 96
--- NOTE | 2017-01-21 16:24 | Hospitalist Progress Note ---
Hospitalist Progress Note Date of Service Jan 21, 2017. (Monika Gastelum PA-C) Subjective Pt evaluation today including: conversation w/ patient, conversation w/ family , physical exam, chart review, lab review, review of studies, review of inpatient medication list Patient seen and evaluated. Hgb remaining stable. Still has hypotensive episodes. Will reduce Toprol XL A1c is 8 and will likely need better coverage that 70/30 that she takes at home. Verbalizes no other complaints. Having more pain in the hip but medication is helping. Constitutional: No fever, No chills Respiratory: No shortness of breath Cardiovascular: No chest pain Abdomen: No pain, No nausea, No vomiting Musculoskeletal: + joint pain (R hip) Neurologic: No numbness/tingling Heme: No abnormal bleeding/bruising (Monika Gastelum, RUDDYC) Medications Current Inpatient Medications Medications (Trade) Dose Ordered Sig/Minh Route Start Time Stop Time Status Last Admin Dose Admin Pravastatin Sodium (Pravachol Tab) 10 mg QAM PO 01/16/17 09:00 02/15/17 08:59 01/21/17 09:31 10 MG Pantoprazole Sodium (Protonix Tab) 40 mg BID PO 01/15/17 21:00 02/14/17 20:59 01/21/17 09:31 40 MG Morphine Sulfate (MoRPHine SULFATE INJ) 2 mg Q2H PRN IV 01/15/17 18:30 01/29/17 18:29 Morphine Sulfate (MoRPHine SULFATE INJ) 4 mg Q2H PRN IV 01/15/17 18:30 01/29/17 18:29 Naloxone HCl (Narcan Inj) 0.1 mg PRN PRN IV 01/15/17 18:30 02/14/17 18:29 Senna/Docusate Sodium (Senokot S Tab) 2 tab HS PO 01/15/17 21:00 02/14/17 20:59 01/20/17 20:57 2 TAB Polyethylene (Miralax Powder Packet) 17 gm DAILY PRN PO 01/15/17 18:30 02/14/17 18:29 Bisacodyl (Dulcolax Supp) 10 mg DAILY PRN ME 01/15/17 18:30 02/14/17 18:29 Ondansetron HCl (Zofran Inj) 4 mg Q6H PRN IV 01/16/17 18:45 02/15/17 18:44 Acetaminophen (Tylenol Tab) 650 mg Q6H PRN PO 01/16/17 18:45 02/15/17 18:44 01/20/17 20:57 650 MG Oxycodone HCl (Roxicodone Immediate Rel Tab) 5 mg Q4H PRN PO 01/16/17 18:45 01/30/17 18:44 01/20/17 19:22 5 MG Aspirin/Aluminum/ Magnesium/Ca Carb (Ascriptin Tab) 325 mg BID PO 01/17/17 09:00 02/16/17 08:59 01/21/17 09:30 325 MG Magnesium Hydroxide (Milk Of Magnesia Susp) 30 ml DAILY PRN PO 01/16/17 18:45 02/15/17 18:44 Insulin Aspart (novoLOG ASPART) SLIDING SCALE G... ACHS SC 01/16/17 21:00 02/15/17 20:59 01/21/17 13:32 3 UNITS Glucose (Glucose 40% Gel) 15-30 GRAMS 15 GRAMS... UD PRN PO 01/17/17 13:15 02/16/17 13:14 Glucose (Glucose Chew Tab) 4-8 Tablets 4 Tabl... UD PRN PO 01/17/17 13:15 02/16/17 13:14 Dextrose (Dextrose 50% 50ML Syringe) 25-50ML OF 50% DW IV FOR... UD PRN IV 01/17/17 13:15 02/16/17 13:14 Glucagon (Glucagon Inj) 1 mg UD PRN SQ 01/17/17 13:15 02/16/17 13:14 Enteral Nutritional Formula (Boost Glucose Control) 1 can BIDM PO 01/17/17 17:45 02/16/17 17:44 01/21/17 09:31 1 CAN Folic Acid (Folvite Tab) 400 mcg QAM PO 01/20/17 09:00 02/19/17 08:59 01/21/17 09:31 400 MCG Metoprolol Succinate (Toprol Xl Tab) 12.5 mg QAM PO 01/22/17 09:00 02/15/17 08:59 (Monika Gastelum PA-C) Objective Vital Signs Date Time Temp Pulse Resp B/P (MAP) Pulse Ox O2 Delivery O2 Flow Rate FiO2 01/21/17 15:00 36.8 75 16 95/53 (67) 96 Room Air 01/21/17 07:55 Room Air 01/21/17 07:35 36.7 63 17 94/44 (61) 94 Room Air 01/20/17 23:15 Room Air 01/20/17 22:38 36.7 63 14 92/56 (68) 95 Room Air (Monika Gastelum PA-C) Physical Exam General Appearance: no apparent distress, + thin Eyes: sclerae normal ENT: hearing grossly normal Neck: supple, no JVD, trachea midline Respiratory/Chest: lungs clear, normal breath sounds, no respiratory distress, no accessory muscle use Cardiovascular: regular rate, rhythm, no gallop, no murmur Abdomen: normal bowel sounds, non tender, soft Extremities: no pedal edema, no calf tenderness, + pertinent finding (dressing applied with minimal dried drainage) Neurologic/Psychiatric: alert Skin: normal color, warm/dry (Monika Gastelum, RUDDYC) Laboratory Results Last 24 Hours Test 01/20/17 17:04 01/20/17 20:53 01/21/17 08:15 01/21/17 09:25 Bedside Glucose 131 mg/dl 131 mg/dl 141 mg/dl White Blood Count 7.13 K/uL Red Blood Count 3.10 M/uL Hemoglobin 9.1 g/dL Hematocrit 29.1 % Mean Corpuscular Volume 93.9 fL Mean Corpuscular Hemoglobin 29.4 pg Mean Corpuscular Hemoglobin Concent 31.3 g/dl RDW Standard Deviation 57.4 fL RDW Coefficient of Variation 17.5 % Platelet Count 191 K/uL Mean Platelet Volume 10.4 fL Test 01/21/17 12:08 Bedside Glucose 155 mg/dl (Monika Gastelum PA-C) Assessment and Plan Ms. Hoyt is an 81 y/o female with PMHx of CAD, DM, AVR, Carotid Stenosis, Anemia, Dementia, and recent supperative parotitis. She suffered a mechanical fall with R intertrochanteric Fx R Intertrochanteric Fx S/P ORIF on 01/16: - Orthopedics and Cardiology followed - [facility] vs [facility] Acute Worsening of Chronic Anemia: STABLE - Slightly worse than baseline and transfused 2 unit PRBC total on 01/15 and 01/17 - Hemoglobin stabilized - no need for transfusion at this time CAD S/P Pacer: - Will reduce Toprol XL to 12.5 mg daily due to orthostasis and low BPs DM: - Cover with SSI with carb coverage - May need to check insurance for other coverage as 70/30 may not be best choice Carotid Stenosis: Moderate - STABLE - ASA BID for DVT Prophylaxis per Ortho x 4 weeks - Pravastatin 10 mg daily Dementia: BASELINE - STABLE DVT Prophylaxis: SCDs; ASA BID Code Status: FULL RESUSCITATION Disposition: - Will monitor Hgb and BPs over weekend - if stable D/C to [facility] vs [facility] Continued [facility] stay due to: ambulation difficulties (Monika Gastelum, PA-C) I agree with above note after discussing with APC and examining patient. General Appearance: no apparent distress, + thin Eyes: sclerae normal ENT: hearing grossly normal Neck: supple, no JVD, trachea midline Respiratory/Chest: lungs clear, normal breath sounds, no respiratory distress, no accessory muscle use Cardiovascular: regular rate, rhythm, no gallop, no murmur Abdomen: normal bowel sounds, non tender, soft Extremities: no pedal edema, no calf tenderness, + pertinent finding (dressing applied with minimal dried drainage) Neurologic/Psychiatric: alert Skin: normal color, warm/dry My exam did not differ from APC. (Davidson Abbott M.D.)
[2017-01-21 16:30] VITALS: O2SAT 96
[2017-01-21] MEDS: OXYCODONE HCL IR 5 MG TAB (IMMEDIATE RELEASE) PO PRN (16:56)
[2017-01-21] MEDS: DOCUSATE SODIUM/SENNA 50/8.6MG TAB PO SCH (19:37)
[2017-01-21] MEDS: ACETAMINOPHEN 325 MG TAB PO PRN (19:39)
[2017-01-21 23:05] VITALS: BP 100/61; PULSE 72; TEMP 36.6; O2SAT 97
[2017-01-22 07:05] VITALS: BP 93/56; PULSE 80; TEMP 37; O2SAT 97
[2017-01-22] MEDS: INSULIN ASPART 100 UNITS/ML 3 ML PEN SC SCH ×4 (08:00→21:41)
[2017-01-22 08:57] LABS: HEMATOCRIT 28.3 % (37-47); MEAN CELL VOLUME 93.7 fL (80-100); MEAN CORPUSCULAR HEMOGLOBIN 28.5 pg (25-34); MEAN CORPUSCULAR HGB CONC 30.4 g/dl (32-36); PLATELET COUNT 207 K/uL (130-400); RED BLOOD COUNT 3.02 M/uL (4.2-5.4); WHITE BLOOD COUNT 7.61 K/uL (4.8-10.8)
[2017-01-22] MEDS ORDERED: METOPROLOL SUCC 25MG EXT REL TAB PO SCH (09:00)
[2017-01-22] MEDS: BOOST GLUCOSE CONTROL PO SCH ×2 (09:31→18:30)
[2017-01-22] MEDS: PANTOprazole SOD 40 MG TAB PO SCH ×2 (09:32→21:29)
[2017-01-22] MEDS: PRAVASTATIN SOD 10 MG TAB PO SCH (09:32)
[2017-01-22] MEDS: FoLIC ACID TAB 400 MCG TAB PO SCH (09:32)
[2017-01-22] MEDS: ASPIRIN/ALUM/MAGNES/CAL CARB 325 MG TAB PO SCH ×2 (09:32→21:50)
[2017-01-22] MEDS: ACETAMINOPHEN 325 MG TAB PO PRN ×2 (13:29→21:35)
[2017-01-22 15:50] VITALS: BP 86/53; PULSE 72; TEMP 36.6; O2SAT 99
--- NOTE | 2017-01-22 17:47 | Hospitalist Progress Note ---
Hospitalist Progress Note Date of Service Jan 22, 2017. (Monika Gastelum PA-C) Subjective Pt evaluation today including: conversation w/ patient, physical exam, chart review, lab review, review of studies, review of inpatient medication list Patient seen and evaluated. No acute events overnight. Reporting good control of pain in L hip but does have exacerbations. Continues to have intermittent dizziness and orthostasis with ambulation. Talked with family (son and [id number]) who reports long standing dizziness with ambulation. Due to parameters has not had Metoprolol and is without rebound. Taking in good oral intake. Hemoglobin stable in low 9 to 8s Constitutional: No fever, No chills Respiratory: No cough, No shortness of breath, No dyspnea at rest Cardiovascular: No chest pain Abdomen: No pain, No nausea, No vomiting Musculoskeletal: + joint pain (R knee) Heme: No abnormal bleeding/bruising (Monika Gastelum, RUDDYC) Medications Current Inpatient Medications Medications (Trade) Dose Ordered Sig/Minh Route Start Time Stop Time Status Last Admin Dose Admin Pravastatin Sodium (Pravachol Tab) 10 mg QAM PO 01/16/17 09:00 02/15/17 08:59 01/22/17 09:32 10 MG Pantoprazole Sodium (Protonix Tab) 40 mg BID PO 01/15/17 21:00 02/14/17 20:59 01/22/17 09:32 40 MG Morphine Sulfate (MoRPHine SULFATE INJ) 2 mg Q2H PRN IV 01/15/17 18:30 01/29/17 18:29 Morphine Sulfate (MoRPHine SULFATE INJ) 4 mg Q2H PRN IV 01/15/17 18:30 01/29/17 18:29 Naloxone HCl (Narcan Inj) 0.1 mg PRN PRN IV 01/15/17 18:30 02/14/17 18:29 Senna/Docusate Sodium (Senokot S Tab) 2 tab HS PO 01/15/17 21:00 02/14/17 20:59 01/20/17 20:57 2 TAB Polyethylene (Miralax Powder Packet) 17 gm DAILY PRN PO 01/15/17 18:30 02/14/17 18:29 Bisacodyl (Dulcolax Supp) 10 mg DAILY PRN ID 01/15/17 18:30 02/14/17 18:29 Ondansetron HCl (Zofran Inj) 4 mg Q6H PRN IV 01/16/17 18:45 02/15/17 18:44 Acetaminophen (Tylenol Tab) 650 mg Q6H PRN PO 01/16/17 18:45 02/15/17 18:44 01/22/17 13:29 650 MG Oxycodone HCl (Roxicodone Immediate Rel Tab) 5 mg Q4H PRN PO 01/16/17 18:45 01/30/17 18:44 01/21/17 16:56 5 MG Aspirin/Aluminum/ Magnesium/Ca Carb (Ascriptin Tab) 325 mg BID PO 01/17/17 09:00 02/16/17 08:59 01/22/17 09:32 325 MG Magnesium Hydroxide (Milk Of Magnesia Susp) 30 ml DAILY PRN PO 01/16/17 18:45 02/15/17 18:44 Insulin Aspart (novoLOG ASPART) SLIDING SCALE G... ACHS SC 01/16/17 21:00 02/15/17 20:59 01/22/17 13:33 4 UNITS Glucose (Glucose 40% Gel) 15-30 GRAMS 15 GRAMS... UD PRN PO 01/17/17 13:15 02/16/17 13:14 Glucose (Glucose Chew Tab) 4-8 Tablets 4 Tabl... UD PRN PO 01/17/17 13:15 02/16/17 13:14 Dextrose (Dextrose 50% 50ML Syringe) 25-50ML OF 50% DW IV FOR... UD PRN IV 01/17/17 13:15 02/16/17 13:14 Glucagon (Glucagon Inj) 1 mg UD PRN SQ 01/17/17 13:15 02/16/17 13:14 Enteral Nutritional Formula (Boost Glucose Control) 1 can BIDM PO 01/17/17 17:45 02/16/17 17:44 01/22/17 09:31 1 CAN Folic Acid (Folvite Tab) 400 mcg QAM PO 01/20/17 09:00 02/19/17 08:59 01/22/17 09:32 400 MCG (Monika Gastelum, ABILIO) Objective Vital Signs Date Time Temp Pulse Resp B/P (MAP) Pulse Ox O2 Delivery O2 Flow Rate FiO2 01/22/17 15:50 36.6 72 18 86/53 (64) 99 Room Air 01/22/17 08:00 Room Air 01/22/17 07:05 37.0 80 16 93/56 (68) 97 Room Air 01/21/17 23:45 Room Air 01/21/17 23:05 36.6 72 16 100/61 (74) 97 Room Air 01/21/17 19:15 Room Air (Monika Gastelum PA-C) Physical Exam General Appearance: no apparent distress, + thin Eyes: sclerae normal ENT: hearing grossly normal Neck: supple, no JVD, trachea midline Respiratory/Chest: lungs clear, normal breath sounds, no respiratory distress, no accessory muscle use Cardiovascular: regular rate, rhythm, no gallop, no murmur Abdomen: normal bowel sounds, non tender, soft Extremities: + pertinent finding (RLE more edematous than LLE; sensation intact ; cap refill minimally delayed; pulses present) Neurologic/Psychiatric: alert, oriented x 3 Skin: normal color, warm/dry (Monika Gastelum, ABILIO) Laboratory Results Last 24 Hours Test 01/21/17 17:50 01/21/17 20:58 01/22/17 08:10 01/22/17 08:35 Bedside Glucose 171 mg/dl 236 mg/dl 138 mg/dl White Blood Count 7.61 K/uL Red Blood Count 3.02 M/uL Hemoglobin 8.6 g/dL Hematocrit 28.3 % Mean Corpuscular Volume 93.7 fL Mean Corpuscular Hemoglobin 28.5 pg Mean Corpuscular Hemoglobin Concent 30.4 g/dl RDW Standard Deviation 58.3 fL RDW Coefficient of Variation 17.6 % Platelet Count 207 K/uL Mean Platelet Volume 10.0 fL Test 01/22/17 12:13 Bedside Glucose 238 mg/dl (Monika Gastelum PA-C) Assessment and Plan Ms. Hoyt is an 81 y/o female with PMHx of CAD, DM, AVR, Carotid Stenosis, Anemia, Dementia, and recent supperative parotitis. She suffered a mechanical fall with R intertrochanteric Fx R Intertrochanteric Fx S/P ORIF on 01/16: - Orthopedics and Cardiology followed - [facility] vs [facility] Acute Worsening of Chronic Anemia: STABLE - Slightly worse than baseline and transfused 2 unit PRBC total on 01/15 and 01/17 - Hemoglobin stabilized - no need for transfusion at this time CAD S/P Pacer: - Will hold further Toprol XL - may be reasonable to D/C in setting of orthostasis given risk/benefit DM: - Cover with SSI with carb coverage - May need to check insurance for other coverage as 70/30 may not be best choice Carotid Stenosis: Moderate - STABLE - ASA BID for DVT Prophylaxis per Ortho x 4 weeks - Pravastatin 10 mg daily Dementia: BASELINE - STABLE DVT Prophylaxis: SCDs; ASA BID Code Status: FULL RESUSCITATION Disposition: - BP remain low but stable - taking in good oral intake - will hold Metoprolol at this time - hemoglobin stable but lower than baseline - Auth was on hold due to orthostatic hypotension and need for transfusion - BP remaining stable but low intermittent dizziness - Will need auth for placement completed Discharge planning: rehab hospital (Monika Gastelum, PA-C) I agree with above note after discussing with APC and examining patient. General Appearance: no apparent distress, + thin Eyes: sclerae normal ENT: hearing grossly normal Neck: supple, no JVD, trachea midline Respiratory/Chest: lungs clear, normal breath sounds, no respiratory distress, no accessory muscle use Cardiovascular: regular rate, rhythm, no gallop, no murmur Abdomen: normal bowel sounds, non tender, soft Extremities: no pedal edema, no calf tenderness, + pertinent finding (dressing applied with minimal dried drainage) Neurologic/Psychiatric: alert Skin: normal color, warm/dry My exam did not differ from APC. (Davidson Abbott M.D.)
[2017-01-22] MEDS: DOCUSATE SODIUM/SENNA 50/8.6MG TAB PO SCH (21:36)
[2017-01-22 23:05] VITALS: BP 108/61; PULSE 65; TEMP 36.4; O2SAT 98
[2017-01-23] MEDS: OXYCODONE HCL IR 5 MG TAB (IMMEDIATE RELEASE) PO PRN ×3 (00:09→16:53)
[2017-01-23 05:48] LABS: HEMATOCRIT 24.6 % (37-47); MEAN CELL VOLUME 93.2 fL (80-100); MEAN CORPUSCULAR HEMOGLOBIN 29.9 pg (25-34); MEAN CORPUSCULAR HGB CONC 32.1 g/dl (32-36); MEAN PLATELET VOLUME 9.6 fL (7.4-10.4); PLATELET COUNT 187 K/uL (130-400); RED BLOOD COUNT 2.64 M/uL (4.2-5.4)
[2017-01-23 06:12] LABS: BUN/CREATININE RATIO 25.7 (10-20); CALCIUM 8.2 mg/dl (8.5-10.1); CREATININE 0.78 mg/dl (0.60-1.20); POTASSIUM 4.5 mmol/L (3.5-5.1)
[2017-01-23 06:45] VITALS: BP 94/50; PULSE 67; TEMP 36.6; O2SAT 96
[2017-01-23] MEDS: FoLIC ACID TAB 400 MCG TAB PO SCH (09:39)
[2017-01-23] MEDS: ASPIRIN/ALUM/MAGNES/CAL CARB 325 MG TAB PO SCH ×2 (09:39→20:52)
[2017-01-23] MEDS: INSULIN ASPART 100 UNITS/ML 3 ML PEN SC SCH ×4 (09:47→20:51)
[2017-01-23] MEDS: BOOST GLUCOSE CONTROL PO SCH ×2 (09:48→17:49)
[2017-01-23] MEDS: PANTOprazole SOD 40 MG TAB PO SCH ×2 (11:01→20:52)
[2017-01-23] MEDS: PRAVASTATIN SOD 10 MG TAB PO SCH (11:01)
--- NOTE | 2017-01-23 13:29 | Hospitalist Progress Note ---
Hospitalist Progress Note Date of Service Jan 23, 2017. (Loretta Israel ., ABILIO) Subjective Pt evaluation today including: conversation w/ patient, physical exam, lab review, review of studies, review of inpatient medication list Voiding: no voiding problems Patient feeling well. Eating and drinking OK. Pain is well controlled. Patient denies any fever, chills, sweats, lightheadedness, dizziness, vision changes, CP, palpitations, edema, SOB, wheezing, cough, abdominal pain, nausea, vomiting, diarrhea, urinary symptoms, melena, numbness/tingling, weakness, anxiety/depression, active bleeding, or new skin discoloration/changes. (Loretta Israel ., RUDDYC) Medications Current Inpatient Medications Medications (Trade) Dose Ordered Sig/Minh Route Start Time Stop Time Status Last Admin Dose Admin Pravastatin Sodium (Pravachol Tab) 10 mg QAM PO 01/16/17 09:00 02/15/17 08:59 01/23/17 11:01 10 MG Pantoprazole Sodium (Protonix Tab) 40 mg BID PO 01/15/17 21:00 02/14/17 20:59 01/23/17 11:01 40 MG Morphine Sulfate (MoRPHine SULFATE INJ) 2 mg Q2H PRN IV 01/15/17 18:30 01/29/17 18:29 Morphine Sulfate (MoRPHine SULFATE INJ) 4 mg Q2H PRN IV 01/15/17 18:30 01/29/17 18:29 Naloxone HCl (Narcan Inj) 0.1 mg PRN PRN IV 01/15/17 18:30 02/14/17 18:29 Senna/Docusate Sodium (Senokot S Tab) 2 tab HS PO 01/15/17 21:00 02/14/17 20:59 01/20/17 20:57 2 TAB Polyethylene (Miralax Powder Packet) 17 gm DAILY PRN PO 01/15/17 18:30 02/14/17 18:29 Bisacodyl (Dulcolax Supp) 10 mg DAILY PRN AL 01/15/17 18:30 02/14/17 18:29 Ondansetron HCl (Zofran Inj) 4 mg Q6H PRN IV 01/16/17 18:45 02/15/17 18:44 Acetaminophen (Tylenol Tab) 650 mg Q6H PRN PO 01/16/17 18:45 02/15/17 18:44 01/22/17 21:35 650 MG Oxycodone HCl (Roxicodone Immediate Rel Tab) 5 mg Q4H PRN PO 01/16/17 18:45 01/30/17 18:44 01/23/17 09:49 5 MG Aspirin/Aluminum/ Magnesium/Ca Carb (Ascriptin Tab) 325 mg BID PO 01/17/17 09:00 02/16/17 08:59 01/23/17 09:39 325 MG Magnesium Hydroxide (Milk Of Magnesia Susp) 30 ml DAILY PRN PO 01/16/17 18:45 02/15/17 18:44 Insulin Aspart (novoLOG ASPART) SLIDING SCALE G... ACHS SC 01/16/17 21:00 02/15/17 20:59 01/23/17 09:47 1 UNITS Glucose (Glucose 40% Gel) 15-30 GRAMS 15 GRAMS... UD PRN PO 01/17/17 13:15 02/16/17 13:14 Glucose (Glucose Chew Tab) 4-8 Tablets 4 Tabl... UD PRN PO 01/17/17 13:15 02/16/17 13:14 Dextrose (Dextrose 50% 50ML Syringe) 25-50ML OF 50% DW IV FOR... UD PRN IV 01/17/17 13:15 02/16/17 13:14 Glucagon (Glucagon Inj) 1 mg UD PRN SQ 01/17/17 13:15 02/16/17 13:14 Enteral Nutritional Formula (Boost Glucose Control) 1 can BIDM PO 01/17/17 17:45 02/16/17 17:44 01/23/17 09:48 1 CAN Folic Acid (Folvite Tab) 400 mcg QAM PO 01/20/17 09:00 02/19/17 08:59 01/23/17 09:39 400 MCG (Loretta Israel PA-C) Objective Vital Signs Date Time Temp Pulse Resp B/P (MAP) Pulse Ox O2 Delivery O2 Flow Rate FiO2 01/23/17 06:45 36.6 67 16 94/50 (65) 96 Room Air 01/22/17 23:55 Room Air 01/22/17 23:05 36.4 65 16 108/61 (77) 98 Room Air 01/22/17 15:50 36.6 72 18 86/53 (64) 99 Room Air 01/22/17 15:20 Room Air (Loretta Israel PA-C) Physical Exam General Appearance: no apparent distress, + thin Eyes: normal inspection, PERRL ENT: hearing grossly normal Neck: supple Respiratory/Chest: lungs clear, no respiratory distress, no accessory muscle use Cardiovascular: regular rate, rhythm Abdomen: normal bowel sounds, non tender, soft Extremities: no calf tenderness, + swelling (RLE edema ), + pertinent finding ( L hip incision site clean, dry and w/ out obvious erythema or drainage ) Neurologic/Psychiatric: alert, normal mood/affect Skin: normal color, warm/dry, no rash (Loretta Israel PA-C) Laboratory Results Last 24 Hours Test 01/22/17 17:09 01/22/17 20:53 01/23/17 05:36 01/23/17 08:00 Bedside Glucose 231 mg/dl 216 mg/dl 126 mg/dl White Blood Count 6.00 K/uL Red Blood Count 2.64 M/uL Hemoglobin 7.9 g/dL Hematocrit 24.6 % Mean Corpuscular Volume 93.2 fL Mean Corpuscular Hemoglobin 29.9 pg Mean Corpuscular Hemoglobin Concent 32.1 g/dl RDW Standard Deviation 58.6 fL RDW Coefficient of Variation 17.8 % Platelet Count 187 K/uL Mean Platelet Volume 9.6 fL Sodium Level 140 mmol/L Potassium Level 4.5 mmol/L Chloride Level 107 mmol/L Carbon Dioxide Level 27 mmol/L Anion Gap 6.0 mmol/L Blood Urea Nitrogen 20 mg/dl Creatinine 0.78 mg/dl Est Creatinine Clear Calc Drug Dose 43.2 ml/min Estimated GFR () 81.5 Estimated GFR (Non- 70.3 BUN/Creatinine Ratio 25.7 Random Glucose 133 mg/dl Calcium Level 8.2 mg/dl Test 01/23/17 09:22 01/23/17 11:56 25-Hydroxy Vitamin D Total 23.3 ng/ml Bedside Glucose 200 mg/dl (Loretta Israel PA-C) Assessment and Plan Ms. Hoyt is an 81 y/o female with PMHx of CAD, DM, AVR, Carotid Stenosis, Anemia, Dementia, and recent supperative parotitis. She suffered a mechanical fall with R intertrochanteric Fx R Intertrochanteric fracture s/p ORIF on 01/[address] Castro: - PT/OT, pain management, and DVT prophylaxis as per primary team - Vitamin D 23.3- hold Vitamin D 2000 IU daily- 50,000 IU weekly x6-8 then resume 2000 IU daily Acute worsening of chronic anemia- transfused 2 unit PRBC total on 01/15 and 01/17 - STABLE: Follow H&H CAD s/p pacer: - Toprol XL held due to hypotension - Cardiology consulted for preop eval DM- HgbA1c 8.0%: BSG ACHS and sliding insulin scale Carotid stenosis: ASA BID, Pravastatin 10 mg daily Dementia- STABLE GI prophylaxis: Protonix DVT Prophylaxis: SCDs, ASA BID x4 weeks per ortho Code Status: FULL RESUSCITATION Disposition: Pending [facility] vs [facility] (Loretta Israel, PA-C) i personally examined pt and verified all fernandez points w Ann Israel feeling ok - hip hurts but tolerable vitals noted nad breathing unlabored no pallor or icterus hip fx - stable. awaiting rehab approval anemia - continue to follow, no current indication for transfusion, however (Sidney Barber D.O.)
[2017-01-23 15:40] VITALS: BP 75/46; TEMP 36.4
[2017-01-23 15:45] VITALS: BP 138/71; PULSE 70; TEMP 36.4; O2SAT 100
[2017-01-23] MEDS: ACETAMINOPHEN 325 MG TAB PO PRN (15:50)
[2017-01-23] MEDS: DOCUSATE SODIUM/SENNA 50/8.6MG TAB PO SCH (20:53)
[2017-01-24 00:05] VITALS: BP 92/57; PULSE 64; TEMP 36.4; O2SAT 96
[2017-01-24 05:26] VITALS: BP 101/63; PULSE 63
[2017-01-24 06:21] LABS: HEMATOCRIT 28.4 % (37-47); MEAN CELL VOLUME 94.7 fL (80-100); MEAN CORPUSCULAR HGB CONC 30.6 g/dl (32-36); MEAN PLATELET VOLUME 9.8 fL (7.4-10.4); PLATELET COUNT 221 K/uL (130-400); WHITE BLOOD COUNT 6.82 K/uL (4.8-10.8)
[2017-01-24 07:42] VITALS: BP 90/59; PULSE 82; TEMP 36.8; O2SAT 97
[2017-01-24] MEDS ORDERED: CHOLECALCIFEROL 1000 INTER.UNIT TAB PO SCH (09:00)
[2017-01-24] MEDS ORDERED: ERGOCALCIFEROL 50,000 INTER.UNIT CAP PO SCH (09:00)
[2017-01-24] MEDS: PRAVASTATIN SOD 10 MG TAB PO SCH (09:38)
[2017-01-24] MEDS: BOOST GLUCOSE CONTROL PO SCH (09:38)
[2017-01-24] MEDS: ASPIRIN/ALUM/MAGNES/CAL CARB 325 MG TAB PO SCH (09:39)
[2017-01-24] MEDS: FoLIC ACID TAB 400 MCG TAB PO SCH (09:40)
[2017-01-24] MEDS: PANTOprazole SOD 40 MG TAB PO SCH (09:40)
[2017-01-24] MEDS: ACETAMINOPHEN 325 MG TAB PO PRN (09:41)
[2017-01-24] MEDS: INSULIN ASPART 100 UNITS/ML 3 ML PEN SC SCH ×2 (09:43→14:10)
[2017-01-24] MEDS ORDERED: RXC5 PO (10:03)
[2017-01-24] MEDS ORDERED: ERGO1CAP41 PO (10:48)
[2017-01-24] MEDS ORDERED: ASPI325T60 PO (10:48)
[2017-01-24] MEDS ORDERED: FLV400 PO (10:48)
--- NOTE | 2017-01-24 11:06 | Discharge Instructions ---
Discharge Instructions Date of Service Jan 24, 2017. Admission Reason for Admission: Intertrochanteric Fracture Of Right Hip Discharge Discharge Diagnosis / Problem: Intertrochanteric fracture of right hip Discharge Goals Goal(s): Decrease discomfort, Improve function, Increase independence, Improve nutritional status, Learn about illness, Diagnostic testing, Therapeutic intervention, Prevent Disease Progression Activity Recommendations Activity Level: Assistance Required Therapies: Physical Therapy, Occupational Therapy As per orthopedics recommendations Additional Information Patient informed of condition: Yes Advance Directives: No DNR: No Level of Care: Acute Rehab Communicable Disease: No Prognosis: Improving Joaquin Catheter: No Instructions / Follow-Up Instructions / Follow-Up R Intertrochanteric fracture s/p ORIF on 01/[address] Castro: - Pain management with Roxicodone 5 mg q4hrs PRN and Tylenol 650 mg q6hrs PRN - Vitamin D 23.3- Continue Vitamin D 2000 IU daily- 50,000 IU x1 on 01/24 Acute worsening of chronic anemia- transfused 2 unit PRBC total on 01/15 and 01/17 - STABLE: Follow H&H CAD s/p pacer: Toprol XL held due to hypotension DM- HgbA1c 8.0%: - BSG ACHS and sliding insulin scale- CF 30, carb ratio 1:12 - Resume 70/30 at discharge - Follow-up w/ PCP to discuss better glycemic control options Carotid stenosis: ASA BID, Pravastatin 10 mg daily Dementia- STABLE GI prophylaxis: Protonix DVT Prophylaxis: SCDs, ASA BID x4 weeks per ortho Code Status: FULL RESUSCITATION Disposition: Discharge to [facility] FOLLOW-UPS: Follow-up with [facility] provider within 24-48 hours Please follow-up with your PCP within 5-7 days after discharge from [facility] Please follow-up with Orthopedics within 2 weeks Please follow-up/keep all of your subspecialty appointments Current Hospital Diet Patient's current hospital diet: Diabetes Type 2 Diet Discharge Diet Recommended Diet: Diabetes Type 2 Diet Procedures Procedures Performed: ORIF right hip with TFN Pending Studies Studies pending at discharge: no Physician Orders On Transfer Special Precautions: Fall precautions Dressing Changes: Routine incision site wound care to R hip Sacral wound care QOD and PRN IV Therapy: None Vital Signs: Routine Additional Orders: Repeat CBC on 01/26 to monitor H&H POLST Discussion: without POLST completion Laboratory Results Hemoglobin A1c Test 01/20/17 08:44 Range/Units Estimated Average Glucose 183 mg/dl Hemoglobin A1c 8.0 H 4.5-5.6 % Lipid Panel Test 11/02/16 09:14 Range/Units Triglycerides Level 146 0-150 mg/dl Cholesterol Level 185 0-200 mg/dl HDL Cholesterol 38 mg/dl Cholesterol/HDL Ratio 4.9 LDL Cholesterol, Calculated 118 mg/dl Medical Emergencies . Who to Call and When: Medical Emergencies: If at any time you feel your situation is an emergency, please call 911 immediately. . Non-Emergent Contact Non-Emergency issues call your: Primary Care Provider Call Non-Emergent contact if: you have a fever, your pain is not controlled, your pain is worsening, your pain is unusual for you, your pain is concerning you, wound has increased drainage, wound has increased redness, wound has increased pain, you have any medication questions . . "Provider Documentation" section prepared by Loretta Israel. . Prosthodontist/Owner Recommendations Prosthodontist/Owner Recommendations: [facility] DISCHARGE INSTRUCTIONS: HIP FRACTURE SELF CARE INSTRUCTIONS: A. You are to ambulate with a walker or crutches for approximately 6 weeks. B. You are WEIGHT BEARING TOLERATED on your operative lower extremity for at least 6 weeks. C. Wear low heeled shoes with non-slip soles D. Be sure that your floors are free of things that could trip you throw rugs, electrical cords, and small objects. Avoid wet and waxed floors, especially with crutches/walker/cane. E. Try to walk several times a day with rest periods between. F. You may shower 48 hours after surgery and get the incision area wet, but DO NOT soak or submerge incision area in water. (No baths, swimming pools, hot tubs ) G. Change your dressing daily if it continues to drain. This may occur for up to 1 week. You may leave the wound to the open air if dry. H. Do NOT apply soap or any ointment/lotions directly over incision. I. You may use ice as needed to operative site. SPECIAL CARE INSTRUCTIONS: VERY IMPORTANT TO READ AND REVIEW A. You may be at risk for phlebitis or blood clots. a. Wear surgical stockings (NAGI hose) for 2 weeks after surgery to improve circulation and reduce swelling. b. Take ASPIRIN 325 mg twice daily for 4 weeks or as directed. This is your blood thinner. c. If you are on Coumadin- you will have daily/weekly blood work to monitor your levels. This will be done by either your family physician/ international manager (if you are on Coumadin chronically) versus your orthopedic surgeon. Expect a phone call the day of or the day after your blood work is drawn to adjust your dose accordingly. B. There are a few signs you need to watch for after you are home. Call [facility] at [phone] if you experience any of the following: a. If you have a temperature of 101 degrees or higher. b. Sudden increase in pain in your hip not relieved by rest or pain medication. c. Any fluid or drainage from the incision; redness of the incision. d. Shortness of breath or chest pain. B. Please call [facility] at [phone] if you have any questions or concerns about your operation or recovery. C. Call your physician if: a. Temperature is greater than 101 degrees (F). b. Pain is not relieved by prescribed pain medications. c. Increase drainage or redness from incision. d. Unanswered questions or concerns. D. Pain Medication: a. You will be prescribed pain medication upon discharge that should last till your first post-operative appointment. b. If you experience nausea and/or skin rash, discontinue this medication and contact our office for an alternative medication. c. Caution- narcotic pain medication can cause constipation. FOLLOW UP VISIT: Please call [facility] at [phone] to schedule a follow up appointment 10-14 days from the date of your surgery date. Core Measure Problem Core Measures: None
--- NOTE | 2017-01-24 11:07 | Discharge Summary ---
Discharge Summary Date of Service Jan 24, 2017. (Loretta Israel, ABILIO) Discharge Summary Admission Date: Jan 15, 2017 at 18:26 Discharge Date: Jan 24, 2017 Discharge Disposition: Rehab Principal Diagnosis: R hip fracture Problems/Secondary Diagnoses: R Intertrochanteric fracture s/p ORIF on 01/16 Acute worsening of chronic anemia CAD s/p pacer DM- HgbA1c 8.0% Carotid stenosis Dementia Immunizations: Have You Had Influenza Vaccine: No History of Tetanus Vaccine?: Unknown History of Pneumococcal: No History of Hepatitis B Vaccine: Unknown Procedures: RIGHT PELVIS/UNILATERAL HIP 2-3VIEWS CLINICAL HISTORY: fall Right trauma. Pain. COMPARISON: None. DISCUSSION: Intertrochanteric fracture right hip. Mild superior migration femoral shaft. No evidence for dislocation. There is no evidence for soft tissue swelling. IMPRESSION: Angled intertrochanteric fracture right hip. Mild superior migration right femoral shaft. No evidence for dislocation The above report was generated using voice recognition software. It may contain grammatical, syntax or spelling errors. Electronically signed by: Mat Abreu M.D. 01/15/2017 2:40 PM Dictated Date/Time: 01/15/2017 2:39 PM The status of this report is Signed. Draft = Not yet reviewed or approved by Radiologist. Signed = Reviewed and approved by Radiologist. CHEST ONE VIEW PORTABLE CLINICAL HISTORY: hip fx trauma COMPARISON STUDY: 05/18/2016 FINDINGS: Moderate emphysematous change. Lungs are clear. Calcification of the mitral annulus. Prior median sternotomy. IMPRESSION: Emphysematous change. No acute process. The above report was generated using voice recognition software. It may contain grammatical, syntax or spelling errors. Electronically signed by: Mat Abreu M.D. 01/15/2017 2:39 PM Dictated Date/Time: 01/15/2017 2:38 PM The status of this report is Signed. Draft = Not yet reviewed or approved by Radiologist. Signed = Reviewed and approved by Radiologist. RIGHT HIP OR FILMS CLINICAL HISTORY: RT TROCHNAIL Right COMPARISON STUDY: Right hip 01/15/2017. FLUOROSCOPY TIME: 1 minute and 3 seconds. FINDINGS: 4 fluoroscopic spot images of the right hip. There is a short proximal femoral intramedullary aneudy with an interlocking femoral neck pin. This traverses the right hip fracture. The hardware appears intact. IMPRESSION: Fluoroscopy provided for internal fixation of a right hip fracture. Electronically signed by: Lucas Olivares M.D. 01/16/2017 6:39 PM Dictated Date/Time: 01/16/2017 6:39 PM The status of this report is Signed. Draft = Not yet reviewed or approved by Radiologist. Signed = Reviewed and approved by Radiologist. Consultations: Orthopedics Cardiology (Loretta Israel PA-C) Medication Reconciliation New Medications: Aspirin Buffered (Danilo Carb-Mag (Tri-Buffered Aspirin) 1 Tab Tab 325 MG PO BID for 30 Days, #60 TAB Folic Acid (Folic Acid) 400 Mcg Tab 400 MCG PO QAM for 30 Days, #30 TAB Oxycodone HCl (Oxycodone HCl) 5 Mg Tab 5 MG PO Q4H PRN for Moderate Pain (pain scale 4-6) for 3 Days, #12 TAB Continued Medications: Cholecalciferol (Vitamin D3) 2,000 Unit Cap 1 CAP PO QAM, CAP 3 Refills Cyanocobalamin (Vitamin B12) 1,000 Mcg Tab 1 TAB PO QAM Insulin Isophan/Regular (Humulin 70/30) Susp 5 UNITS SC QAM for 30 Days Omeprazole (Prilosec) 20 Mg Capcr 20 MG PO BID, CAP Pravastatin Sod (Pravastatin Sodium) 10 Mg Tab 1 TAB PO QAM Discontinued Medications: Aspirin (Aspirin Chewable) 81 Mg Chew 81 MG PO QAM Metoprolol Succinate (Toprol Xl) 25 Mg Tabcr 25 MG PO QAM, #30 TAB Discharge Exam Review of Systems: Constitutional: No fever, No chills, No sweats, No weakness, No fatigue ENT: No hearing loss Respiratory: No cough, No shortness of breath, No hemoptysis Cardiovascular: No chest pain, No edema, No palpitations Abdomen: No pain, No nausea, No vomiting, No diarrhea, No constipation Musculoskeletal: + joint pain, + muscle pain, No swelling, No calf pain Genitourinary - Male: No hematuria, No dysuria Neurologic: No weakness, No numbness/tingling Psychiatric: No depression symptoms, No anxiety Hematologic / Lymphatic: No abnormal bleeding/bruising Integumentary: No rash, No itch, No new/changing skin lesions Physical Exam: General Appearance: no apparent distress, + thin Eyes: normal inspection, PERRL ENT: hearing grossly normal Neck: supple Respiratory/Chest: lungs clear, no respiratory distress, no accessory muscle use Cardiovascular: regular rate, rhythm Abdomen / GI: normal bowel sounds, non tender, soft Extremities: no calf tenderness, no pedal edema, + pertinent finding (R hip incision dressed in clean dressing ) Neurologic/Psychiatric: alert, normal mood/affect, oriented x 3 Skin: normal color, warm/dry, no rash (Loretta Israel, PANickC) Hospital Course Admission H&P: 81 y/o F Hx CAD, DM, AVR, carotid stenosis, anemia, dementia, recent admission with supperative parotitis. Pt suffered a mechanical fall and resultant R intertrochanteric fracture. She denies preceding symptoms such as SOB, CP, palpitations or light-headedness but is not a reliable historian. The pt was found on the floor by a family member and denied falling despite being on the floor. She was awake and alert on arrival to the ER although she appears to have developed some confusion mild after her family departed - possibly due to . Initial labs are notable for worsening anemia in addition to hyperglycemia. Physical Exam Vital Signs Date Time Temp Pulse Resp B/P (MAP) Pulse Ox O2 Delivery O2 Flow Rate FiO2 01/15/17 16:30 65 17 98/47 100 01/15/17 16:00 62 17 01/15/17 15:30 64 19 100 01/15/17 15:00 61 17 100 01/15/17 14:17 61 20 123/58 94 Room Air 01/15/17 14:03 61 01/15/17 12:40 36.4 60 22 125/36 97 Room Air General Appearance: + thin, + pertinent finding (Thin, restless and confused, elderly female in no distress. She was able to answer my questions to place and time and at the same time is disoriented ) Head: normocephalic, atraumatic ENT: normal ENT inspection, pharynx normal Neck: supple, no JVD Respiratory/Chest: chest non-tender, lungs clear, normal breath sounds Cardiovascular: regular rate, rhythm, no edema, no gallop, + systolic murmur Abdomen/GI: normal bowel sounds, non tender, soft Back: normal inspection, no CVA tenderness Extremities/Musculoskelatal: normal inspection, no calf tenderness, normal capillary refill Neurologic/Psych: + pertinent finding (As above, she is oriented and follows instructions - she appears to have very poor sight which I cannot compare to baseline She does not exhibit unilaterl weakness) Skin: warm/dry, no rash, + pallor Hospital Course: R Intertrochanteric fracture s/p ORIF on 01/[address] Castro: - Pain management with Roxicodone 5 mg q4hrs PRN and Tylenol 650 mg q6hrs PRN - Vitamin D 23.3- Continue Vitamin D 2000 IU daily- 50,000 IU x1 on 01/24 Acute worsening of chronic anemia- transfused 2 unit PRBC total on 01/15 and 01/17 - STABLE: Follow H&H CAD s/p pacer: Toprol XL held due to hypotension DM- HgbA1c 8.0%: - BSG ACHS and sliding insulin scale- CF 30, carb ratio 1:12 - Resume 70/30 at discharge - Follow-up w/ PCP to discuss better glycemic control Carotid stenosis: ASA BID, Pravastatin 10 mg daily Dementia- STABLE GI prophylaxis: Protonix DVT Prophylaxis: SCDs, ASA BID x4 weeks per ortho Code Status: FULL RESUSCITATION Disposition: Discharge to [facility] Total Time Spent: Greater than 30 minutes This includes examination of the patient, discharge planning, medication reconciliation, and communication with other providers. (Loretta Israel PA-C) pt seen, sleeping comfortably. no new issues noted. discussed case w Ann Israel PAC vitals noted, sleeping peacefully, breathing unlabored. hip fx - stable for rehab otherwise as above (Sidney Barber, D.O.) Discharge Instructions Please refer to the electronic Patient Visit Report (Discharge Instructions) for additional information. (Loretta Israel PA-C) Follow-Up Follow-up with [facility] provider within 24-48 hours Please follow-up with your PCP within 5-7 days after discharge from [facility] Please follow-up with Orthopedics within 2 weeks Please follow-up/keep all of your subspecialty appointments (Loretta Israel PA-C) Additional Copies To [facility]
[2017-01-24 13:26] VITALS: BP 90/59; PULSE 82; TEMP 36.8; O2SAT 97
== END 2017-01-24 14:45 | DRG 482 ==
LOC: EDBD 12:33 → C.EDC 12:34 → C.MSW 18:26 → ENRESERV 18:35
PROVIDERS: ADMIT Internal Medicine; ATTEND Family Medicine
PROC: 0QS604Z Reposition Right Upper Femur with Internal Fixation Device, Open Approach (ICD-10-PCS; principal; 2017-01-16 07:00)
DX: S72.141A Displaced intertrochanteric fracture of right femur, initial encounter for closed fracture (principal); E11.9 Type 2 diabetes mellitus without complications; F03.90 Unspecified dementia, unspecified severity, without behavioral disturbance, psychotic disturbance, mood disturbance, and anxiety; E78.5 Hyperlipidemia, unspecified; D64.9 Anemia, unspecified; Z95.0 Presence of cardiac pacemaker; Z79.82 Long term (current) use of aspirin; W19.XXXA Unspecified fall, initial encounter

== ENCOUNTER → 2017-01-26 | Outpatient (CLI) | payer OTHER ==
[~2017-01-26] MED LIST changes: -ASPCH81X PO; +ASPI325T60 PO; +FLV400 PO; -METO25TA3 PO; +RXC5 PO
[2017-01-26 08:26] LABS: HEMATOCRIT 26.9 % (37-47); MEAN CELL VOLUME 95.7 fL (80-100); MEAN CORPUSCULAR HEMOGLOBIN 29.5 pg (25-34); MEAN CORPUSCULAR HGB CONC 30.9 g/dl (32-36); MEAN PLATELET VOLUME 10.2 fL (7.4-10.4); PLATELET COUNT 267 K/uL (130-400); RED BLOOD COUNT 2.81 M/uL (4.2-5.4); WHITE BLOOD COUNT 7.35 K/uL (4.8-10.8)
== END ==
LOC: C.LABCC 08:10
PROVIDERS: ATTEND Internal Medicine
DX: D64.9 Anemia, unspecified (principal)

== ENCOUNTER → 2017-02-01 | Outpatient (CLI) | payer OTHER ==
[2017-02-01 09:02] LABS: HEMATOCRIT 28.8 % (37-47); MEAN CORPUSCULAR HGB CONC 30.9 g/dl (32-36); MEAN PLATELET VOLUME 10.4 fL (7.4-10.4); PLATELET COUNT 314 K/uL (130-400); RED BLOOD COUNT 2.97 M/uL (4.2-5.4); WHITE BLOOD COUNT 9.11 K/uL (4.8-10.8)
== END ==
LOC: C.LABCC 08:53
PROVIDERS: ATTEND Internal Medicine
DX: D64.9 Anemia, unspecified (principal)

== ENCOUNTER → 2017-02-06 | Day surgery (SDC) | payer OTHER ==
[~2017-02-06] VITALS: Ht 170.2 cm; Wt 49.5 kg
[~2017-02-06] MED LIST changes: +FENTANYL CITRATE INJ 50 MCG/1 ML 2 ML VIAL ONE; +LIDOCAINE HCL 2% 2 ML VIAL (20MG/ML) ONE; +PHENYLEPHRINE 100MCG/ML 5ML SYR ONE; +PROPOFOL IV EMULSION 10 MG/ML 20 ML VIAL IV ONE; +SODIUM CHLORIDE 0.9% 500ML 500 ML IV ONE
[2017-02-06 08:00] VITALS: Ht 170.2 cm; Wt 49.5 kg
--- NOTE | 2017-02-06 08:13 | Endo History and Physical ---
History & Physical Date of Service: Feb 06, 2017. Chief Complaint: Dysphagia Referring Physician: Dr. Caballero History of Present Illness 81 yo CF who presents for EGD secondary to dysphagia. Past Medical History Diabetes, Endocrine Disorder, Arthritis, Pacemaker, ASHD, Gastrointestinal Disorder, Reflux, Blood Dyscrasias, High Cholesterol, CABG, Hypertension, Thrombophlebitis, Thyroid Disease, Valve Replacement, Other Past Surgical History Hx Cardiac Surgery: Yes (CABGx4, aortic valve replacement, pacemaker) Hx Internal Defibrillator: No Hx Pacemaker: Yes Hx Abdominal Surgery: Yes (open rosalia) Hx Post-Op Nausea and Vomiting: No Hx Cancer Surgery: No Hx Thoracic Surgery: No Hx Orthopedic: No Hx Urinary Tract Surgery: No Social History Smoking Status: Never Smoker Hx Substance Use: No Hx Alcohol Use: No Allergies Coded Allergies: Rosuvastatin (Verified Adverse Reaction, Unknown, UPSET STOMACH, 12/20/16) Simvastatin (Verified Adverse Reaction, Unknown, UPSET STOMACH, 12/20/16) Current Medications Reported Home Medications Medications Dose Route/Sig Max Daily Dose Days Date Category Folic Acid 400 Mcg Tab 400 Mcg PO QAM 30 01/24/17 Rx Tri-Buffered Aspirin (Aspirin Buffered (Danilo Carb-Mag) 1 Tab Tab 325 Mg PO BID 30 01/24/17 Rx Oxycodone HCl 5 Mg Tab 5 Mg PO Q4H PRN 3 01/24/17 Rx Humulin 70/30 (Insulin Human Isoph/Insulin Regular) Susp 5 Units SC QAM 30 12/25/16 Rx Vitamin B12 (Cyanocobalamin) 1,000 Mcg Tab 1 Tab PO QAM 03/23/16 Reported Pravastatin Sodium (Pravastatin Sod) 10 Mg Tab 1 Tab PO QAM 03/23/16 Reported Vitamin D3 (Cholecalciferol) 2,000 Unit Cap 1 Cap PO QAM 06/17/15 Reported Prilosec (Omeprazole) 20 Mg Capcr 20 Mg PO BID 06/17/15 Reported Physical Exam General Appearance: WD/WN, no apparent distress Respiratory/Chest: Auscultation: breath sounds normal Cardiovascular: Heart Auscultation: RRR Abdomen: Bowel Sounds: normal Inspection & Palpation: soft, non-distended, no tenderness, guarding & rebound Assessment and Plan Assessment: 81 yo CF who presents for EGD secondary to dysphagia. Plan: Proceed with EGD.
--- NOTE | 2017-02-06 08:52 | Discharge Instructions ---
Endoscopy Patient Instructions Date / Procedure(s) Performed Feb 06, 2017. EGD Allergy Information Coded Allergies: Rosuvastatin (Verified Adverse Reaction, Unknown, UPSET STOMACH, 12/20/16) Simvastatin (Verified Adverse Reaction, Unknown, UPSET STOMACH, 12/20/16) Discharge Date / Findings Feb 06, 2017. Esophageal candidiasis Hiatal hernia Medication Instructions Stopped Medication(s): [facility] DID NOT GIVE ANY MEDICATION THIS AM PATIENT STATES 1) Start Diflucan 400mg by mouth today, then 200mg by mouth today for 20 days. 2) Hold Pravastatin for 5 days prior to treatment with Diflucan, and 5 days after treatment with Diflucan. 2) OK to resume all medications today as prescribed Reported Home Medications Medications Dose Route/Sig Max Daily Dose Days Date Category Folic Acid 400 Mcg Tab 400 Mcg PO QAM 30 01/24/17 Rx Tri-Buffered Aspirin (Aspirin Buffered (Danilo Carb-Mag) 1 Tab Tab 325 Mg PO BID 30 01/24/17 Rx Oxycodone HCl 5 Mg Tab 5 Mg PO Q4H PRN 3 01/24/17 Rx Humulin 70/30 (Insulin Human Isoph/Insulin Regular) Susp 5 Units SC QAM 30 12/25/16 Rx Vitamin B12 (Cyanocobalamin) 1,000 Mcg Tab 1 Tab PO QAM 03/23/16 Reported Pravastatin Sodium (Pravastatin Sod) 10 Mg Tab 1 Tab PO QAM 03/23/16 Reported Vitamin D3 (Cholecalciferol) 2,000 Unit Cap 1 Cap PO QAM 06/17/15 Reported Prilosec (Omeprazole) 20 Mg Capcr 20 Mg PO BID 06/17/15 Reported Provider Instructions Activity Restrictions - No exercising or heavy lifting for 24 hours. - Do not drink alcohol the day of the procedure. - Do not drive a car or operate machinery until the day after the procedure. - Do not make any important decisions or sign important papers in 24 hours after the procedure. Following Day: - Return to full activity which may include returning to work/school. Diet Start your diet with liquids and light foods (jello, soup, juice, toast). Then eat your usual diet if not nauseated. Treatment For Common After Affects For mild abdominal pain, bloating, or excessive gas: - Rest - Eat lightly - Lie on right side 1) Recommend oral care every 8 hours 2) Recommend patient remain upright while eating Follow-Up Information Follow-up with DR. JIN as scheduled Anesthesia Information What You Should Know You have had a procedure that required some medicine to reduce anxiety and discomfort. This treatment is called moderate sedation. After receiving the treatment, you may be sleepy, but you will be able to breathe on your own. The effects of the treatment may last for several hours. Follow these instructions along with Activity/Diet recommendations noted above: * Do NOT do anything where dizziness or clumsiness would be dangerous. * Rest quietly at home today, then you can be up and about tomorrow. * Have a responsible person stay with you the rest of today. * You may have had an I.V. today. If so, you may take the dressing off later today. Recommendations Call your doctor if: * Trouble breathing * Continuous vomiting for more than 24 hours * Temperature above 101 degrees * Severe abdominal pain or bloating * Pain not relieved by pain medicine ordered * There is increased drainage or redness from any incision * A large amount of rectal bleeding greater than 2-3 tablespoons. (If you had a polyp/s removed or have hemorrhoids, a small amount of blood - from the rectum is to be expected.) * You have any unanswered questions or concerns. IN THE EVENT OF A SERIOUS EMERGENCY, GO TO THE NEAREST EMERGENCY ROOM Your discharge instructions were prepared by provider Cr Mims. Patient Instructions Signature Page Dayanna Hoyt Patient (or Guardian) Signature/Date: I have read and understand the instructions given to me by my caregivers. Caregiver/RN/Doctor Signature/Date: The above-named patient and/or guardian has received patient instructions on this date. + Original Patient Signature Page (only) stays with chart. Please make copy for patient.
--- NOTE | 2017-02-06 08:59 | GI REPORT ---
Procedure Date: 02/06/2017 8:38 AM Procedure: Upper GI endoscopy Indications: Dysphagia Medicines: Monitored Anesthesia Care Complications: No immediate complications. Estimated Blood Loss: Estimated blood loss: none. Procedure: Pre-Anesthesia Assessment: - Prior to the procedure, a History and Physical was performed, and patient medications and allergies were reviewed. The patient's tolerance of previous anesthesia was also reviewed. The risks and benefits of the procedure and the sedation options and risks were discussed with the patient. All questions were answered, and informed consent was obtained. Prior Anticoagulants: The patient has taken aspirin, last dose was 10 days prior to procedure. ASA Grade Assessment: IV - A patient with severe systemic disease that is a constant threat to life. After reviewing the risks and benefits, the patient was deemed in satisfactory condition to undergo the procedure. After obtaining informed consent, the endoscope was passed under direct vision. Throughout the procedure, the patient's blood pressure, pulse, and oxygen saturations were monitored continuously. The scope was introduced through the mouth, and advanced to the second part of duodenum. The upper GI endoscopy was accomplished without difficulty. The patient tolerated the procedure well. Findings: Diffuse candidiasis was found in the entire esophagus. A small hiatus hernia was present. The examined duodenum was normal. Impression: - Monilial esophagitis. - Small hiatus hernia. - Normal examined duodenum. - No specimens collected. Recommendation: - Resume previous diet. - Continue present medications. - Diflucan (fluconazole) 100 mg PO daily for 3 weeks. - Return to primary care physician as previously scheduled. Cr Mims DO 02/06/2017 8:58:37 AM This report has been signed electronically. Note Initiated On: 02/06/2017 8:38 AM I attest to the content of the Intraoperative Record and orders documented therein, exceptions below
--- NOTE | 2017-02-06 09:16 | Anesthesiology Progress Note ---
Anesthesia Post Op Note Date & Time Feb 06, 2017 at 09:16 Vital Signs Pain Intensity: 0 Vital Signs Past 12 Hours Date Time Temp Pulse Resp B/P (MAP) Pulse Ox O2 Delivery O2 Flow Rate FiO2 02/06/17 08:55 89 12 122/69 (86) 98 Oxymask 6 02/06/17 08:30 36.2 92 20 110/85 (93) 96 Room Air Notes Mental Status: alert / awake / arousable, participated in evaluation Pt Amnestic to Procedure: Yes Nausea / Vomiting: adequately controlled Pain: adequately controlled Airway Patency, RR, SpO2: stable & adequate BP & HR: stable & adequate Hydration State: stable & adequate Anesthetic Complications: no major complications apparent
[2017-02-06 09:40] VITALS: BP 126/74; PULSE 88; O2SAT 98
== END | disposition home or self-care (01) ==
LOC: C.GI 07:41
PROVIDERS: ATTEND Internal Medicine
DX: R13.10 Dysphagia, unspecified (principal); B37.81 Candidal esophagitis; K44.9 Diaphragmatic hernia without obstruction or gangrene; D75.9 Disease of blood and blood-forming organs, unspecified; E11.9 Type 2 diabetes mellitus without complications; M19.90 Unspecified osteoarthritis, unspecified site; K21.9 Gastro-esophageal reflux disease without esophagitis; E78.00 Pure hypercholesterolemia, unspecified; Z95.1 Presence of aortocoronary bypass graft; I10 Essential (primary) hypertension; Z95.2 Presence of prosthetic heart valve; Z95.0 Presence of cardiac pacemaker; Z79.82 Long term (current) use of aspirin; Z79.4 Long term (current) use of insulin; Z79.899 Other long term (current) drug therapy

== ENCOUNTER → 2017-02-09 | Outpatient (CLI) | payer OTHER ==
[~2017-02-09] MED LIST changes: -FENTANYL CITRATE INJ 50 MCG/1 ML 2 ML VIAL ONE; -LIDOCAINE HCL 2% 2 ML VIAL (20MG/ML) ONE; -PHENYLEPHRINE 100MCG/ML 5ML SYR ONE; -PROPOFOL IV EMULSION 10 MG/ML 20 ML VIAL IV ONE; -SODIUM CHLORIDE 0.9% 500ML 500 ML IV ONE
[2017-02-09 08:20] LABS: BASO % 0.1 %; BASO ABS # 0.01 K/uL (0-0.2); EOS % 0.1 %; HEMATOCRIT 36.9 % (37-47); IG% 0.4 %; LYMPH % 4.2 %; LYMPH ABS # 0.61 K/uL (1.2-3.4); MEAN CELL VOLUME 99.2 fL (80-100); MEAN CORPUSCULAR HEMOGLOBIN 30.1 pg (25-34); MEAN CORPUSCULAR HGB CONC 30.4 g/dl (32-36); MEAN PLATELET VOLUME 11.2 fL (7.4-10.4); MONO % 5.1 %; NEUT % 90.1 %; PLATELET COUNT 168 K/uL (130-400); RED BLOOD COUNT 3.72 M/uL (4.2-5.4); WHITE BLOOD COUNT 14.58 K/uL (4.8-10.8)
[2017-02-09 08:50] LABS: COMPLETE YES; ECHINOCYTES 3+
== END ==
LOC: C.LABCC 08:01
PROVIDERS: ATTEND Internal Medicine
DX: D50.9 Iron deficiency anemia, unspecified (principal)

== ENCOUNTER → 2017-02-14 | Outpatient (CLI) | payer OTHER ==
[2017-02-14 09:14] LABS: BLOOD UREA NITROGEN 59 mg/dl (7-18); BUN/CREATININE RATIO 36.6 (10-20); CARBON DIOXIDE 18 mmol/L (21-32); CHLORIDE 106 mmol/L (98-107); GLUCOSE 192 mg/dl (70-99); POTASSIUM 4.8 mmol/L (3.5-5.1); SODIUM 139 mmol/L (136-145)
== END ==
LOC: C.LABCC 08:30
PROVIDERS: ATTEND Internal Medicine
DX: R60.9 Edema, unspecified (principal)